=== PATIENT | female | born 1940 | race Caucasian/White ===

== ENCOUNTER 2019-05-11 10:29 | Emergency (ER) | payer MEDICARE, SELFPAY ==
--- NOTE | 2019-05-11 10:32 | ED.GENADULT ---
HPI - General Adult General Chief complaint: Upper Respiratory Infection Stated complaint: Cough Time Seen by Provider: 05/11/19 10:48 Source: patient Mode of arrival: ambulatory Limitations: no limitations History of Present Illness HPI narrative: 78-year-old female patient presents to the [facility] with complaints of a cough. Patient's daughter states that she has had a cough for couple weeks now and saw her primary doctor on 04/23 and was given doxycycline in case of any possible pneumonia or upper respiratory infection. Daughter states that she was doing fine while on the Doxy however when she quit taking the Doxy her symptoms came back. Patient denies any shortness of breath or chest pain at this time patient states she has had a little bit of a cough but it has not been that bad . Patient states she has had a little bit of a headache. Patient denies any fevers. Patient denies any ear pain, runny nose or stuffy nose. Denies any abdominal pain, nausea, vomiting or diarrhea. Patient does have a history of COPD and asthma and states she does have an albuterol inhaler at home but denies trying to use the albuterol inhaler. Related Data Home Medications Medication Instructions Recorded Confirmed albuterol sulfate [Ventolin HFA] 2 inh INHALATION DAILY 01/23/19 05/11/19 bupropion HCl 150 mg PO DAILY 01/23/19 05/11/19 citalopram 40 mg PO DAILY 01/23/19 05/11/19 lisinopril 20 mg PO DAILY 01/23/19 05/11/19 pantoprazole [Protonix] 40 mg PO QAM 01/23/19 05/11/19 levothyroxine 125 mcg DAILY 05/11/19 05/11/19 Allergies Allergy/AdvReac Type Severity Reaction Status Date / Time No Known Allergies Allergy Unknown Verified 05/11/19 10:31 Review of Systems Review of Systems: Narrative: CONSTITUTIONAL: Denies fever, chills, or sweats. EYES: Denies visual changes, redness, or discharge. ENT: Denies rhinorrhea, congestion, sore throat, or otalgia. CARDIOVASCULAR: Denies chest pain, palpitations, or edema. RESPIRATORY: Positive cough, denies dyspnea. GASTROINTESTINAL: Denies abdominal pain, nausea, vomiting, or diarrhea. GENITOURINARY: Denies dysuria or hematuria. SKIN: Denies rash or itching. MUSCULOSKELETAL: Denies back pain, joint pain, or myalgia. NEUROLOGIC: Positive headache, denies numbness, or weakness. PSYCHIATRIC: Denies anxiety or depression. [facility] Past Medical History Medical History Anxiety Asthma Bronchitis Concussion COPD (chronic obstructive pulmonary disease) Dementia Depression GERD (gastroesophageal reflux disease) Goiter HTN (hypertension) Hypothyroidism Pneumonia TIA (transient ischemic attack) UTI (urinary tract infection) Surgical History Surgical History H/O Spinal surgery H/O tubal ligation Family History Family History Mother Diabetes mellitus Congestive heart failure Father Emphysema lung Sibling Heart attack Social History Social History Smoking status: Former smoker Tobacco type: cigarettes Smoking end date: 03/14/88 Additional smoking assessment comments: pt confused and unable to answer, daughter unsure Alcohol intake: never Substance use: never Substance use type: does not use Gender identity (if verbalized by the patient): Female Spiritual care concerns: No Agree to blood products: Yes Comments At the time of my signature I agree with nursing past medical history, surgical, social, and family history. There is no relevant family history pertinent to the presenting complaint. Exam Narrative: Exam Narrative: GENERAL: Well-appearing, well-nourished, and in no acute distress. HEAD: Normocephalic, atraumatic. No tenderness noted to frontal and maxillary sinuses on palpation EYES: PERRLA and EOMI. ENT: Nares with erythema and edema noted susana
[2019-05-11 10:42] VITALS: BP 155/88; PULSE 84; RESP 20; TEMP 36.7; O2SAT 97
[2019-05-11] MEDS: ALBUTEROL SULFATE NEB 2.5 MG/3 ML INH INHALATION (10:58)
[2019-05-11] MEDS: IPRATROPIUM BR 0.02% INH SOLN 0.5 MG/2.5 ML VIAL INHALATION (10:58)
[2019-05-11 11:27] VITALS: PULSE 80
== END 2019-05-11 11:36 | disposition home or self-care (01) ==
PROVIDERS: Emergency Provider Nurse Practitioner Family; PCP Family Medicine
DX: J06.9 Acute upper respiratory infection, unspecified (principal); Z87.891 Personal history of nicotine dependence; F41.9 Anxiety disorder, unspecified; F32.9 Major depressive disorder, single episode, unspecified; J44.9 Chronic obstructive pulmonary disease, unspecified; F03.90 Unspecified dementia, unspecified severity, without behavioral disturbance, psychotic disturbance, mood disturbance, and anxiety; K21.9 Gastro-esophageal reflux disease without esophagitis; I10 Essential (primary) hypertension; E03.9 Hypothyroidism, unspecified; Z86.73 Personal history of transient ischemic attack (TIA), and cerebral infarction without residual deficits; E04.9 Nontoxic goiter, unspecified
CPT/HCPCS: 94640; 99213; G0463

== ENCOUNTER 2019-08-28 14:13 | Emergency (ER) | payer MEDICARE, SELFPAY ==
[2019-08-28 14:15] VITALS: BP 153/90; PULSE 85; RESP 19; TEMP 36.6; O2SAT 96
--- NOTE | 2019-08-28 14:25 | ECG_ITS ---
Measurements Intervals [place] Rate: 76 P: 83 MA: 157 QRS: 67 QRSD: 81 T: 83 QT: 394 QTc: 445 Interpretive Statements SINUS RHYTHM POSSIBLE LEFT ATRIAL ENLARGEMENT CANNOT RULE OUT SEPTAL INFARCT, AGE INDETERMINATE BORDERLINE T WAVE ABNORMALITY- HIGH LATERAL LEADS BASELINE ARTIFACT- I, III, AVL ABNORMAL ECG Electronically Signed On 08-28-2019 14:30:40 CDT by Del Dill D.O.
[2019-08-28 14:35] VITALS: BP 128/79; PULSE 72; RESP 18; O2SAT 96
[2019-08-28 14:43] LABS: Basophils Percent Auto 0.7 % (0.2-1.2); Eosinophils Absolute Auto 0.1 K/mm3 (0-0.3); Eosinophils Percent Auto 2.2 % (0-4.4); Hematocrit 39.9 % (37.0-47.0); Hemoglobin 13.3 g/dL (12.0-15.0); Immature Granulocyte Absolute 0.01 K/mm3 (0.00-0.031); Immature Granulocyte Percent A 0.2 % (0-0.5); Lymphocytes Percent Auto 33.6 % (18.3-44.2); Mean Corpuscular HGB Conc 33.3 g/dl (32-36); Mean Corpuscular Volume 96.1 fl (80-100); Mean Platelet Volume 10.3 fl (7.4-10.4); Monocytes Absolute Auto 0.5 K/mm3 (0.1-0.6); Monocytes Percent Auto 8.2 % (2.6-8.5); Neutrophils Absolute Auto 3.3 K/mm3 (1.3-6.7); Neutrophils Percent Auto 55.1 % (45.5-73.1); Platelet Count Result 307 k/mm3 (150-375); Red Blood Count 4.15 M/mm3 (4.2-5.4); Red Cell Distribution Width 11.4 % (11.5-14.5)
[2019-08-28 14:48] LABS: Add Urine Microscopic? YES; Appearance Urine Clear (Clear); Bilirubin Urine Negative (Negative); Blood Urine 1+ (Negative); Color Urine Yellow (Yellow); Glucose Urine UA Negative (Negative); Hyaline Casts Urine 15-19 /lpf; Ketones Urine Negative (Negative); Leukocyte Esterase Ur Negative LEU/UL (Negative); Mucus Urine Rare /lpf; Nitrate Urine Negative (Negative); Protein Urine 1+ mg/dL (Negative); Specific Grav Ur 1.015 (1.001-1.035); Squamous Epithelial Cell Urine Rare /hpf (Few); WBC Urine 0-3 /hpf
--- NOTE | 2019-08-28 15:04 | ED.AMS ---
HPI - Altered Mental Status General Chief Complaint: Altered Mental Status Stated Complaint: possible uti Time Seen by Provider: 08/28/19 14:52 Source: patient Mode of arrival: EMS Limitations: no limitations History of Present Illness HPI narrative: This patient is a 79 year old female with history of dementia, hypothyroid who presents for evaluation of behavior changes. Her daughter states that over the past week she has become increasingly uncooperative. She also reports that she seems to be more paranoid as well. Today patient was walking up and down the street and her daughter states she would not come in the house. She states patient was also bitten on right hand by her dog. She denies patient being violent or suicidal. PAtient states she has no complaints other than her daughter bothering her. She denies chest pain, shortness of breathing, nausea, vomiting. abdominal pain or cough. Related Data Home Medications Medication Instructions Recorded Confirmed albuterol sulfate [Ventolin HFA] 2 inh INHALATION DAILY 01/23/19 05/11/19 lisinopril 20 mg PO DAILY 01/23/19 05/11/19 pantoprazole [Protonix] 40 mg PO QAM 01/23/19 05/11/19 levothyroxine 125 mcg DAILY 05/11/19 05/11/19 Allergies Allergy/AdvReac Type Severity Reaction Status Date / Time No Known Allergies Allergy Unknown Verified 05/11/19 10:31 Review of Systems Review of Systems: All systems reviewed & are unremarkable except as noted in HPI and below Constitutional: Constitutional: Denies chills, Denies fever(s) and Denies weakness Cardiovascular: Cardiovascular: Denies chest pain and Denies rapid heart rate Respiratory: Respiratory: Denies cough and Denies dyspnea Gastrointestinal: Gastrointestinal: Denies abdominal pain, Denies diarrhea, Denies nausea and Denies vomiting Musculoskeletal: Musculoskeletal: Denies back pain, Denies joint swelling and Denies muscle cramps Neurologic: Denies vertigo, Denies dizziness, Denies syncope, Denies headache(s), Denies focal weakness, Denies numbness and Denies weakness Psychiatric: Psychiatric: Denies anxiety, Denies depression, Denies homicidal ideation and Denies suicidal ideation PMFSH Past Medical History Medical History Anxiety Asthma Bronchitis Concussion COPD (chronic obstructive pulmonary disease) Dementia Depression GERD (gastroesophageal reflux disease) Goiter HTN (hypertension) Hypothyroidism Pneumonia TIA (transient ischemic attack) UTI (urinary tract infection) Surgical History Surgical History H/O Spinal surgery H/O tubal ligation Social History Social History Smoking status: Former smoker Tobacco type: cigarettes Smoking end date: 03/14/88 Additional smoking assessment comments: pt confused and unable to answer, daughter unsure Alcohol intake: never Substance use: never Substance use type: does not use Gender identity (if verbalized by the patient): Female Spiritual care concerns: No Agree to blood products: Yes Exam Const: General: no acute distress and alert Nutritional Appearance: thin Other: oriented to person, age, place. pleasant HENMT: Head: normocephalic and atraumatic Face and sinus: sinuses nontender and face symmetric Mouth: Yes Normal oral and palatal mucosa present and Yes lip normal Throat: posterior oropharynx normal Eyes: Pupils: Equal, round and reactive pupils present EOM: EOMs intact bilaterally Neck: Neck: normal visual inspection and no lymphadenopathy Chest: Chest palpation & inspection: normal inspection of the chest Resp: Effort & Inspection: normal respiratory effort and no retractions Auscultation: clear to auscultation bilaterally Cardio: Rate: regular rate and not bradycardic Rhythm: regular rhythm Heart sounds: no murmurs GI: GI Palp: Yes Soft
[2019-08-28] MEDS: TETANUS,DIPHTHERIA,AC PERTUSSIS ADULT (0.5 ML) BOOSTRIX IM (15:24)
[2019-08-28 15:25] VITALS: BP 103/80; PULSE 70; RESP 19; O2SAT 98
[2019-08-28 15:29] LABS: Alanine Aminotransferase 13 U/L (4-35); Alkaline Phosphatase 111 U/L (38-126); Aspartate Amino Transferase 29 U/L (14-36); Bilirubin,Total 0.5 mg/dL (0.2-1.3); Blood Urea Nitrogen 12 mg/dL (7-17); Calcium 9.8 mg/dL (8.4-10.2); Carbon Dioxide 30 mmol/L (22-30); Chloride 104 mmol/L (98-107); Estimated CRCL calculation 32 ml/min; Estimated Glomerular Filt Rate > 60; Glucose 92 mg/dL (65-105); Potassium 4.4 mmol/L (3.4-5.0); Sodium 137 mmol/L (137-145)
--- NOTE | 2019-08-28 16:03 | PCCCNOTE ---
Visited pt and daughter in ER 1. Daughter concerned that mother not safe at home not taking care of ADL's ie. bathing and also wandering. Informed pt and daughter that case coordination would call Adult Protective Services and encouraged daughter to call pt's primary doctor. Called and left message with Adult Protective Services [phone].
[2019-08-28 16:11] VITALS: BP 133/77; PULSE 65; RESP 18; O2SAT 98
[2019-08-28 17:39] VITALS: BP 133/77; PULSE 69; RESP 16; O2SAT 96
--- NOTE | 2019-08-29 09:41 | PCCCNOTE ---
08/29/19 Adult Protective Services returned call. Already had pt demographics and information regarding daughter's concerns given to APS. Informed case would be opened and person would be assigned.
== END 2019-08-28 17:40 | disposition home or self-care (01) ==
PROVIDERS: Emergency Provider General Practice; PCP Family Medicine
DX: S61.451A Open bite of right hand, initial encounter (principal); F41.9 Anxiety disorder, unspecified; J45.909 Unspecified asthma, uncomplicated; J44.9 Chronic obstructive pulmonary disease, unspecified; K21.9 Gastro-esophageal reflux disease without esophagitis; I10 Essential (primary) hypertension; E03.9 Hypothyroidism, unspecified; W54.0XXA Bitten by dog, initial encounter; Z23 Encounter for immunization
CPT/HCPCS: 36415; 80053; 81001; 85025; 90471; 90715; 93005; 99284

== ENCOUNTER 2019-10-15 02:11 | Emergency (ER) | payer MEDICARE, SELFPAY ==
--- NOTE | ~2019-10-15 | XR_ITS ---
EXAMINATION: XR ankle RT min 3V INDICATION: Right ankle pain TECHNIQUE: Four views of the right ankle are obtained. COMPARISON: None available FINDINGS: There is diffuse soft tissue swelling of ankle. No acute fracture is identified. Mild irreg ularity at the distal aspect of the lateral malleolus likely reflects prior injury. A plantar calcane al enthesophyte is noted. IMPRESSION: 1. No acute osseous abnormality. Reviewed, dictated and finalized at location A.
[2019-10-15 02:19] VITALS: BP 172/79; PULSE 88; RESP 20; TEMP 36.6; O2SAT 100
--- NOTE | 2019-10-15 03:09 | PC.NURSE ---
Patient states I want to go home. This nurse informs patient that I will inform the doctor to come talk to her.
[2019-10-15 03:14] LABS: Basophils Absolute Auto 0.1 K/mm3 (0.0-0.1); Basophils Percent Auto 0.7 % (0.2-1.2); Eosinophils Absolute Auto 0.2 K/mm3 (0-0.3); Eosinophils Percent Auto 1.9 % (0-4.4); Hematocrit 39.2 % (37.0-47.0); Hemoglobin 13.3 g/dL (12.0-15.0); Immature Granulocyte Absolute 0.02 K/mm3 (0.00-0.031); Immature Granulocyte Percent A 0.2 % (0-0.5); Lymphocytes Absolute Auto 2.25 K/mm3 (0.9-3.2); Lymphocytes Percent Auto 26.5 % (18.3-44.2); Mean Corpuscular HGB Conc 33.9 g/dl (32-36); Mean Corpuscular Hemoglobin 32.8 pg (26-34); Mean Corpuscular Volume 96.6 fl (80-100); Mean Platelet Volume 9.3 fl (7.4-10.4); Monocytes Absolute Auto 0.8 K/mm3 (0.1-0.6); Monocytes Percent Auto 8.8 % (2.6-8.5); Neutrophils Absolute Auto 5.3 K/mm3 (1.3-6.7); Neutrophils Percent Auto 61.9 % (45.5-73.1); Platelet Count Result 278 k/mm3 (150-375); Red Blood Count 4.06 M/mm3 (4.2-5.4); Red Cell Distribution Width 12.7 % (11.5-14.5); White Blood Count 8.5 K/mm3 (4.5-10.0)
[2019-10-15 03:23] LABS: Partial Thromboplastin Time 31.7 SECONDS (22.3-36.8); Prothrombin Time 12.7 Seconds (11.1-14.7)
--- NOTE | 2019-10-15 03:24 | PC.NURSE ---
Patient at nurses station stating I'm ready to go now!! stated when patient's ride comes back patient can leave. This nurse called the number on file, no answer or way to leave a message.
[2019-10-15 03:25] LABS: Alanine Aminotransferase 14 U/L (4-35); Albumin Level 3.9 g/dL (3.5-5.1); Alkaline Phosphatase 123 U/L (38-126); Anion Gap 9.4 mmol/L (7-16); Aspartate Amino Transferase 27 U/L (14-36); Bilirubin,Total 0.4 mg/dL (0.2-1.3); Blood Urea Nitrogen 9 mg/dL (7-17); Calcium 9.1 mg/dL (8.4-10.2); Carbon Dioxide 30 mmol/L (22-30); Chloride 104 mmol/L (98-107); Estimated CRCL calculation 42 ml/min; Estimated Glomerular Filt Rate > 60; Glucose 78 mg/dL (65-105); Potassium 3.4 mmol/L (3.4-5.0); Sodium 140 mmol/L (137-145)
--- NOTE | 2019-10-15 03:35 | ED.GENADULT ---
HPI - General Adult General Chief complaint: Unspecified Stated complaint: Lower ext swelling/rectal pain Time Seen by Provider: 10/15/19 02:22 Source: RN notes reviewed History of Present Illness HPI narrative: Patient presents emergency department from home for multiple complaints. Patient states that she was driving the car and had pain in her rectum that is now improved. She denies having any associated abdominal pain denies any fevers or chills or blood in her stool. Patient also notes that she has been having some swelling erythema in her right lower leg is been present for some time she cannot give any further definitive history. She denies any pain in the leg states she is able to walk on it without difficulty. Related Data Allergies Allergy/AdvReac Type Severity Reaction Status Date / Time No Known Allergies Allergy Verified 10/15/19 02:26 Review of Systems Review of Systems: Narrative: Gen.: Denies fevers or chills ENT: Denies congestion Respiratory: Denies shortness of breath or cough CV: Denies chest pain or palpitations GI: Denies abdominal pain nausea, emesis or diarrhea reports rectal pain denies burning, urgency, frequency or hematuria Musculoskeletal: Denies back pain or muscle pain Neuro: Denies numbness, tingling, weakness or focal weakness Skin: Right leg redness Except as documented, all other systems reviewed and negative [facility] Past Medical History Medical History (Updated 10/15/19 @ 04:07 by Aleks Mercedes DO) Dementia Social History Social History (Updated 10/15/19 @ 04:07 by Aleks Mercedes DO) Smoking status: Never smoker Exam Narrative: Exam Narrative: APPEARANCE: No acute distress, nontoxic, resting in bed EYES: EOMI HEENT: Normocephalic, atraumatic, OMM RESPIRATORY: No respiratory distress Clear to auscultation bilaterally with no rhonchi wheezing or rales. CARDIOVASCULAR: Regular rate and rhythm without murmurs rubs or gallops. ABDOMINAL: Soft, nontender, nondistended, no rebound or guarding Rectum: Rectal prolapse present that is easily reducible MUSCULOSKELETAl: Moves all extremities. No clubbing, cyanosis 2+ edema the right lower extremity there is mild swelling mild ecchymosis around the right ankle and then erythema over the anterior monk no tenderness of the calf NEURO: Awake and alert. Following commands, speech normal, no focal deficits SKIN:: Warm, dry. No rashes lesions or abrasions PSYCHIATRIC: Normal affect/mood, Course Course Emergency Course: Upon initial evaluation the patient did have a rectal prolapse with gentle pressure it was reduced Patient has a second medical record and reviewed the chart the patient is recently been diagnosed with dementia. The granddaughter dropped off the patient returned home to get ID for the patient. Patient purely trying to get up and leave saying she does not wish to be here anymore and trying to direct the patient back into the room awaiting family to return. I did call and discussed with daughter Kori who will come in to get the patient Patient's granddaughter is now present. States the patient is staying with her and her father she is comfortable taking the patient home discussed rectal prolapse need follow-up with surgery Discussed with patient results of workup and diagnosis. Discussed need for follow-up with primary care, proper use of medication, and reasons to return to the emergency department. Patient understands and agrees to current treatment plan Vital Signs Vital signs: Vital Signs Temperature 97.9 F 10/15/19 02:19 Pulse Rate 88 10/15/19 02:19 Respiratory Rate 10/15/19 02:19 Blood Pressure 172/79 H 10/15/19 02:19 Pulse Oximetry 100 10/15/19 02:19 Temperature 97.9 F 10/15/19 02:19 Pulse Rate 88 10/15/19 02:19 Respiratory Rate 20 10/15/19 02:19 Blood Pressure 172/79 H 10/15/19 02:19 Pulse Oximetry 100 10/15/19 02:19 Medical Decision Making Vital Signs Vital Signs:
--- NOTE | 2019-10-15 03:47 | PC.NURSE ---
Patient at nurses station stating why are you keeping me prisoner! I just want to go home! . This nurse and other RNs informing patient that her daughter is on her way here to pick her up. Patient frequently stating she was brought here by her son. Patient instructed to go wait in her room, patient refusing to go back to her room. Patient frequently reminded that her daughter is on her way to pick her up.
[2019-10-15] MEDS: CEPHALEXIN 500 MG CAPSULE (04:00)
--- NOTE | 2019-10-15 04:01 | PC.NURSE ---
Patient's granddaughter arrives to room.
== END 2019-10-15 04:13 | disposition home or self-care (01) ==
PROVIDERS: Emergency Provider Emergency Medicine; PCP Family Medicine
DX: L03.115 Cellulitis of right lower limb (principal); K62.3 Rectal prolapse; F03.90 Unspecified dementia, unspecified severity, without behavioral disturbance, psychotic disturbance, mood disturbance, and anxiety
CPT/HCPCS: 36415; 73610; 80053; 85025; 85610; 85730; 99283; A9270

== ENCOUNTER 2019-10-23 15:43 | Inpatient (IN) | payer MEDICARE, SELFPAY ==
[2019-10-23] VITALS (7 sets, daily range): BP systolic 147–190; BP diastolic 87–116; PULSE 78–111; RESP 16–30; TEMP 36.3–36.9; O2SAT 88–100; BMI 16.0
--- NOTE | ~2019-10-23 | XR_ITS ---
EXAMINATION: XR chest 1V portable EXAM DATE: 10/23/2019 16:53 INDICATION: Cough, dyspnea. History COPD and hypertension. TECHNIQUE: Portable AP frontal chest x-ray was obtained. Comparison is made to prior examination from 01/13/2019. FINDINGS: Lungs are hyperinflated. Resolution of previously seen patchy bibasilar acute airspace dise ase. There is no focal acute air space disease. There is no pneumothorax suspected. There are no pleu ral effusions. Cardiomediastinal silhouette is normal. Bones may be osteopenic. IMPRESSION: 1. Hyperinflation. Reviewed, dictated and finalized at location A. IMPRESSION: 1. Hyperinflation.
[2019-10-23 16:22] LABS: Basophils Absolute Auto 0.1 K/mm3 (0.0-0.1); Basophils Percent Auto 0.4 % (0.2-1.2); Eosinophils Absolute Auto 0.1 K/mm3 (0-0.3); Eosinophils Percent Auto 0.8 % (0-4.4); Hematocrit 41.8 % (37.0-47.0); Hemoglobin 13.6 g/dL (12.0-15.0); Immature Granulocyte Absolute 0.06 K/mm3 (0.00-0.031); Immature Granulocyte Percent A 0.5 % (0-0.5); Lymphocytes Absolute Auto 3.08 K/mm3 (0.9-3.2); Lymphocytes Percent Auto 26.5 % (18.3-44.2); Mean Corpuscular HGB Conc 32.5 g/dl (32-36); Mean Corpuscular Hemoglobin 32.2 pg (26-34); Mean Corpuscular Volume 99.1 fl (80-100); Mean Platelet Volume 9.2 fl (7.4-10.4); Monocytes Percent Auto 8.3 % (2.6-8.5); Neutrophils Absolute Auto 7.4 K/mm3 (1.3-6.7); Neutrophils Percent Auto 63.5 % (45.5-73.1); Platelet Count Result 403 k/mm3 (150-375); Red Blood Count 4.22 M/mm3 (4.2-5.4); Red Cell Distribution Width 13.6 % (11.5-14.5); White Blood Count 11.6 K/mm3 (4.5-10.0)
[2019-10-23 16:32] LABS: Lactic Acid 0.7 mmol/L (0.7-2.1)
--- NOTE | 2019-10-23 16:32 | ECG_ITS ---
Measurements Intervals [place] Rate: 103 P: [place]: 0 QRS: 80 QRSD: 90 T: 95 QT: 364 QTc: 478 Interpretive Statements SINUS TACHYCARDIA ATRIAL COUPLET, ATRIAL AND VENTRICULAR PREMATURE COMPLEXES CANNOT RULE OUT SEPTAL INFARCT, AGE INDETERMINATE NONSPECIFIC ST & T-WAVE ABNORMALITY- DIFFUSE LEADS BASELINE ARTIFACT- II, III, V1-V6 ABNORMAL ECG Electronically Signed On 10-23-2019 19:34:35 CDT by Del Dill D.O.
--- NOTE | 2019-10-23 16:32 | ED.URI ---
HPI - URI/Sore Throat General Chief Complaint: Upper Respiratory Infection Stated Complaint: deep cough/sinus drainage Time Seen by Provider: 10/23/19 16:30 Source: patient and family Mode of arrival: wheelchair Limitations: no limitations History of Present Illness HPI Narrative: Patient is a 79-year-old female with a history of dementia, hypertension, pneumonia, asthma who presents for evaluation of cough and shortness of breath. Patient states she has been feeling unwell with a productive cough and sinus congestion over the past 72 hours. Patient denies any chest pain, palpitations. No nausea or vomiting. Patient is not currently on any antibiotics. She has been using her trilogy at home as well as at home medications without much improvement in her symptoms. Patient has a history of recurrent pneumonia and has required admission in the past. No sore throat, no myalgias. No history of known COVID exposure or recent sick contacts. Related Data Home Medications Medication Instructions Recorded Confirmed levothyroxine 125 mcg DAILY 05/11/19 05/11/19 lisinopril 20 mg PO DAILY 10/23/19 Allergies Allergy/AdvReac Type Severity Reaction Status Date / Time No Known Allergies Allergy Unknown Verified 10/23/19 16:25 Review of Systems Review of Systems: Narrative: CONSTITUTIONAL: Denies fever CARDIOVASCULAR: Denies chest pain RESPIRATORY: Reports cough and shortness of breath GASTROINTESTINAL: Denies abdominal pain SKIN: Denies rash MUSCULOSKELETAL: Denies back pain NEUROLOGIC: Denies headache PMFSH Past Medical History Medical History Anxiety Asthma Bronchitis Concussion COPD (chronic obstructive pulmonary disease) Dementia Dementia Depression GERD (gastroesophageal reflux disease) Goiter HTN (hypertension) Hypothyroidism Pneumonia TIA (transient ischemic attack) UTI (urinary tract infection) Surgical History Surgical History H/O Spinal surgery H/O tubal ligation Social History Social History Smoking status: Never smoker Tobacco type: cigarettes Smoking end date: 03/14/88 Additional smoking assessment comments: pt confused and unable to answer, daughter unsure Alcohol intake: never Substance use: never Substance use type: does not use Gender identity (if verbalized by the patient): Female Spiritual care concerns: No Agree to blood products: Yes Exam Narrative: Exam Narrative: GENERAL: Awake, alert, thin, elderly HEAD: Normocephalic, atraumatic. EYES: PERRLA and EOMI. ENT: Nares clear, no rhinorrhea or epistaxis. Mucous membranes dry. NECK: Supple. CHEST: Tachypnea present, use of accessory muscles to breathe, hypoxemia, coarse breath sounds with expiratory wheezing bilaterally HEART: Tachycardic rate, sinus rhythm ABDOMEN: Scaphoid, non distended, non tender EXTREMITIES: Normal range of motion. No edema. SKIN: Pale, warm, dry, no rash. NEURO:No focal deficits. Alert and oriented x3 Course Vital Signs Vital signs: Vital Signs Temperature 36.9 C 10/23/19 16:09 Pulse Rate 107 H 10/23/19 16:09 Respiratory Rate 20 10/23/19 16:09 Blood Pressure 157/116 H 10/23/19 16:09 Pulse Oximetry 91 10/23/19 16:09 Temperature 36.9 C 10/23/19 16:09 Pulse Rate 94 10/23/19 18:13 Respiratory Rate 30 H 10/23/19 18:13 Blood Pressure 147/88 H 10/23/19 18:13 Pulse Oximetry 98 10/23/19 18:13 MDM - URI/Sore Throat MDM Narrative Medical decision making narrative: Patient is a 79-year-old female with a history of asthma, recurrent pneumonia who presented for evaluation of cough and shortness of breath. Patient is not on any home oxygen, but is hypoxemic with increased work of breathing here, very coarse breath sounds with very minimal wheezing present. Patient also with coarse rhonchi in the upper air
[2019-10-23 16:33] LABS: Anion Gap 6 mmol/L (8-16); Blood Urea Nitrogen 11 mg/dL (7-17); Calcium 9.4 mg/dL (8.4-10.2); Carbon Dioxide 32 mmol/L (22-30); Chloride 103 mmol/L (98-107); Estimated CRCL calculation 37 ml/min; Estimated Glomerular Filt Rate > 60; Glucose 103 mg/dL (65-105); Potassium 3.5 mmol/L (3.4-5.0); Sodium 141 mmol/L (137-145)
[2019-10-23 16:55] LABS: Base Excess ABG 6.3 mEq/l (+/-2.0); Carboxyhemoglobin 0.9 % THb (0-2.0); Fractional Inspired Oxygen 28 %; HCO3 ABG 32.4 mEq/l (22.0-26.0); Methemoglobin ABG 0.3 %THb (0-1.5); Oxygen Content ABG 19.2 %vol (16.0-22.0); Oxygen Saturation ABG 99.1 % (95.0-100.0); Oxyhemoglobin 97.6 % THb (90.0-100.0); PCO2 ABG 52.8 mmHg (35.0-45.0); PO2 ABG 166.2 mmHg (80.0-100.0); PO2 FiO2 Ratio Arterial Blood 5.94 %; Reduced Hemoglobin 1.2 %THb (0-5.0); Total Hemoglobin 13.8 g/dL (12.0-18.0); pH ABG 7.406 (7.350-7.450)
[2019-10-23 16:57] LABS: Device NASAL CANNULA; Site Drawn LEFT BRACHIAL
[2019-10-23] MEDS: SODIUM CHLORIDE 0.9% IV 1,000 ML 999 ML IV CONT (17:01)
[2019-10-23 17:09] LABS: Basophils Absolute Auto 0.1 K/mm3 (0.0-0.1); Basophils Percent Auto 0.7 % (0.2-1.2); Eosinophils Absolute Auto 0.1 K/mm3 (0-0.3); Eosinophils Percent Auto 0.8 % (0-4.4); Hematocrit 40.5 % (37.0-47.0); Hemoglobin 13.1 g/dL (12.0-15.0); Immature Granulocyte Absolute 0.07 K/mm3 (0.00-0.031); Immature Granulocyte Percent A 0.6 % (0-0.5); Lymphocytes Absolute Auto 3.02 K/mm3 (0.9-3.2); Lymphocytes Percent Auto 25.6 % (18.3-44.2); Mean Corpuscular HGB Conc 32.3 g/dl (32-36); Mean Corpuscular Hemoglobin 32.4 pg (26-34); Mean Corpuscular Volume 100.2 fl (80-100); Mean Platelet Volume 9.5 fl (7.4-10.4); Monocytes Absolute Auto 1.1 K/mm3 (0.1-0.6); Monocytes Percent Auto 8.9 % (2.6-8.5); Neutrophils Absolute Auto 7.5 K/mm3 (1.3-6.7); Neutrophils Percent Auto 63.4 % (45.5-73.1); Platelet Count Result 389 k/mm3 (150-375); Red Blood Count 4.04 M/mm3 (4.2-5.4); Red Cell Distribution Width 13.6 % (11.5-14.5); White Blood Count 11.8 K/mm3 (4.5-10.0)
[2019-10-23 17:24] LABS: Alanine Aminotransferase 12 U/L (4-35); Albumin Level 3.8 g/dL (3.5-5.1); Alkaline Phosphatase 115 U/L (38-126); Anion Gap 5 mmol/L (8-16); Aspartate Amino Transferase 26 U/L (14-36); Bilirubin,Total 0.5 mg/dL (0.2-1.3); Blood Urea Nitrogen 13 mg/dL (7-17); Calcium 9.1 mg/dL (8.4-10.2); Carbon Dioxide 34 mmol/L (22-30); Chloride 103 mmol/L (98-107); Estimated CRCL calculation 37 ml/min; Estimated Glomerular Filt Rate > 60; Glucose 96 mg/dL (65-105); Potassium 3.7 mmol/L (3.4-5.0); Sodium 142 mmol/L (137-145)
[2019-10-23] MEDS: methylPREDNISolone SOD SUCC 125 MG VIAL (18:25)
--- NOTE | 2019-10-23 19:30 | PC.NURSE ---
Upon walking into patient's room to receive bedside report from NITESH Lind, patient was found ambulatory out of bed. Patient is unsure why she stood up and is only alert to name at this time. Patient placed back in bed with bed alarm placed.
--- NOTE | 2019-10-23 19:57 | ADMGEN ---
This patient, Mireya Zamora, was admitted to 3 Med Surg Room 326-01. Patient/family oriented to hospital policies and general routines including ID bracelet, bed and alarms, visiting hours, pain management, procedures, bathroom and other care routines, personal items, smoking policy, room service/diet, and visiting hours. Valuables list has been completed. Information on how to activate the Rapid Response Team has been discussed. Patient/Family are encouraged to report perceived risks to care and to ask questions if they do not understand what they are told or what they should do.
[2019-10-23] MEDS: methylPREDNISolone SOD SUCC 125 MG VIAL 60 MG IV PUSH (23:36)
[2019-10-24] VITALS (12 sets, daily range): BP systolic 107–154; BP diastolic 76–86; PULSE 65–102; RESP 16–24; TEMP 36.7–37.1; O2SAT 91–99; BMI 16.0
--- NOTE | 2019-10-24 04:52 | PM.IMHP ---
H&P: HPI History of Present Illness Date/Time: 10/24/19 04:52 Chief complaint: Cough and shortness of breath Narrative: Mireya Zamora is a 79 year old female with a past medical history of hypertension, dementia, asthma/COPD who presented to the ER with shortness of breath and cough. The patient had 3 days of productive cough and sinus congestion. She has not had any chest pain or palpitations. the patient had been exhibiting increased paranoia and disruptive behaviors. She was evaluated by her primary care physician 09/18/2019 and a referral was made to adult protective services. The daughter was trying to get the patient into assisted living. At the time of my evaluation the patient cannot provide any past medical history. She is alert oriented only to self. When I ask her any review of systems questions she simply states no she has no complaints. Review of Systems Review of Systems: ROS unobtainable: Yes unobtainable due to mental status ( Dementia) [facility] Past Medical History Medical History (Updated 10/24/19 @ 05:[address] DO) Anxiety Asthma Concussion distant history COPD (chronic obstructive pulmonary disease) Dementia Depression Essential hypertension GERD (gastroesophageal reflux disease) Goiter Hypothyroidism Pneumonia TIA (transient ischemic attack) Surgical History Surgical History H/O Spinal surgery 1994 H/O tubal ligation Family History Family History Mother Diabetes mellitus Congestive heart failure Father Emphysema lung Sibling Heart attack Social History Social History Social History: primary care provider: Dr. Shaylee Noyola Smoking status: Former smoker Tobacco type: cigarettes Smoking end date: 03/14/88 Alcohol intake: never Substance use: never Substance use type: does not use Gender identity (if verbalized by the patient): Female Sexual Orientation (if Verbalized by the Patient): Straight or Heterosexual Spiritual care concerns: No Agree to blood products: Yes Meds Home Medications and Allergies Home Medications Medication Instructions Recorded Confirmed Type memantine 5 mg tablet 5 mg PO BID #180 tablet 02/27/19 10/23/19 Rx levothyroxine 125 mcg DAILY 05/11/19 10/23/19 History bupropion HCl 150 mg 24 hr tablet, 150 mg PO DAILY #90 tablet 06/01/19 10/23/19 Rx extended release fluticasone fur. 100 mcg-umeclid 1 inhalation INHALATION DAILY 30 06/12/19 10/23/19 Rx 62.5 mcg-vilant 25 mcg Days #28 each inhalat.powder citalopram 40 mg tablet 40 mg PO DAILY #90 tablet 07/11/19 10/23/19 Rx lisinopril 20 mg PO DAILY 10/23/19 10/23/19 History Allergies Allergy/AdvReac Type Severity Reaction Status Date / Time No Known Allergies Allergy Unknown Verified 10/23/19 16:25 Vital Signs Vital Signs - 24 hr 10/23/19 16:09 10/23/19 16:21 10/23/19 16:25 Temperature 98.5 F Pulse Rate 107 H 111 H 105 H Respiratory Rate 20 22 H 28 H Blood Pressure 157/116 H 190/105 H 190/105 H Pulse Oximetry 91 88 L 94 10/23/19 18:13 10/23/19 18:57 10/23/19 19:39 Temperature Pulse Rate 94 78 85 Respiratory Rate 30 H 28 H 17 Blood Pressure 147/88 H 158/95 H 158/95 H Pulse Oximetry 98 95 100 10/23/19 19:57 10/24/19 00:00 10/24/19 04:00 Temperature 97.3 F L Pulse Rate 88 71 67 Respiratory Rate 16 Blood Pressure 168/87 H Pulse Oximetry 92 Exam Narrative: Exam Narrative: PHYSICAL EXAM: WEIGHT 37.1 kg BMI 16 General: thin body habitus, elderly, frail HEENT: mucous membranes are tacky, no oral pharyngeal erythema, edentulous, head is normocephalic atraumatic Respiratory: decreased breath sounds bilaterally, no increased work of breathing Cardiovascular: regular rate, regular rhythm, no murmurs, 2+ bilateral radial and pedal puls
--- NOTE | 2019-10-24 05:07 | ECG_ITS ---
Measurements Intervals [place] Rate: 94 P: 79 [place]: 136 QRS: 72 QRSD: 73 T: 118 QT: 346 QTc: 434 Interpretive Statements SINUS RHYTHM BORDERLINE ST-T WAVE ABNORMALITY- DIFFUSE LEADS BASELINE ARTIFACT- V3-V6 BORDERLINE ECG Electronically Signed On 10-24-2019 16:19:59 CDT by Del Dill D.O.
[2019-10-24] MEDS: LEVOTHYROXINE SODIUM 125 MCG TABLET PO (05:51)
[2019-10-24] MEDS: methylPREDNISolone SOD SUCC 125 MG VIAL 60 MG IV PUSH ×3 (05:51→21:05)
[2019-10-24 06:06] LABS: Hematocrit 39.4 % (37.0-47.0); Hemoglobin 12.8 g/dL (12.0-15.0); Mean Corpuscular HGB Conc 32.5 g/dl (32-36); Mean Corpuscular Hemoglobin 32.4 pg (26-34); Mean Corpuscular Volume 99.7 fl (80-100); Mean Platelet Volume 9.3 fl (7.4-10.4); Platelet Count Result 362 k/mm3 (150-375); Red Blood Count 3.95 M/mm3 (4.2-5.4); Red Cell Distribution Width 13.4 % (11.5-14.5); White Blood Count 8.1 K/mm3 (4.5-10.0)
[2019-10-24 06:21] LABS: Anion Gap 4 mmol/L (8-16); Blood Urea Nitrogen 9 mg/dL (7-17); Calcium 8.5 mg/dL (8.4-10.2); Carbon Dioxide 35 mmol/L (22-30); Chloride 103 mmol/L (98-107); Estimated CRCL calculation 45 ml/min; Estimated Glomerular Filt Rate > 60; Glucose 139 mg/dL (65-105); Potassium 3.8 mmol/L (3.4-5.0); Sodium 142 mmol/L (137-145)
[2019-10-24] MEDS: MEMANTINE 5 MG TABLET PO ×2 (09:01→16:39)
[2019-10-24] MEDS: lisinopriL 20 MG TABLET PO (09:01)
[2019-10-24] MEDS: buPROPion HCL XL (24 HR) 150 MG TABCR PO (11:19)
[2019-10-24 14:11] LABS: SARS-CoV-2 RNA PCR Negative
--- NOTE | 2019-10-24 16:14 | PM.IMPN ---
Progress Note: A&P Assessment and Plan (1) COPD exacerbation: Code(s): J44.1 - Chronic obstructive pulmonary disease with (acute) exacerbation Status: Acute Assessment and Plan: Patient presents with cough and increased shortness of breath. COVID negative; chest XR shows no infiltrate or consolidation, will discontinue antibiotics. Continue IV solu-medrol, decrease dose. Since COVID negative, will add nebulized bronchodilator therapy with Duo Nebs in addition to pulmozyme. Monitor symptoms. Supplemental O2 as needed however she is saturating fine on room air this afternoon. (2) Dementia: Qualifiers: Dementia type: unspecified type Dementia behavioral disturbance: with behavioral disturbance Qualified Code(s): F03.91 - Unspecified dementia with behavioral disturbance Code(s): F03.90 - Unspecified dementia without behavioral disturbance Status: Chronic Assessment and Plan: Continue home Namenda. (3) HTN (hypertension): Code(s): I10 - Essential (primary) hypertension Status: Chronic Assessment and Plan: BPs elevated on arrival; improved with resuming her home antihypertensive. Continue home lisinopril. Stable, last 126/78. Monitor BP and adjust treatment as needed. Subjective Date/time seen: 10/24/19 1400 Interval history: Ms. Zamora is a 79yo F with dementia admitted for COPD exacerbation. She is awake and alert, attempting to use the call light as a telephone. She will not answer any of my questions. Review of Systems Review of Systems: ROS unobtainable: Yes unobtainable due to mental status Exam Narrative: Exam Narrative: General: Female sitting up in bedside chair in no acute distress; appeared to be talking on the phone however she is holding the call light/TV remote up to her ear like a phone. HEENT: Normocephalic, EOMI, oral mucosa tacky. Cardiovascular: Rate and rhythm are regular. Respiratory: Diffuse expiratory wheezing MARK; respirations are even and nonlabored. Tolerating room air. Abdomen: Soft, non-tender, non-distended, bowel sounds present. Extremities: Peripheral pulses intact. No edema. Neuro: Significantly confused. Alert and oriented only to self. Not able to participate in full neuro exam. Objective Data Vital Signs Vital Signs: Last Vital Signs Temp 98.2 F 10/24/19 14:00 Pulse 93 10/24/19 19:53 Resp 24 H 10/24/19 19:53 BP 126/78 10/24/19 14:00 Pulse Ox 92 10/24/19 19:42 Intake/Output Intake/Output: Intake & Output 10/21/19 10/22/19 10/23/19 10/24/19 23:59 23:59 23:59 23:59 Intake Total 1400 200 Output Total 200 Balance 1400 0 Meds/Results Medications: Active Medications Generic Name Dose Route Start Last Admin Trade Name Freq PRN Reason Stop Dose Admin Acetaminophen 650 mg 10/23/19 18:00 Tylenol Tablet PO Q4H PRN Mild Pain (1-3) or Fever Albuterol 2.5 mg 10/24/19 20:00 Albuterol Sulf Neb 2.5mg/0.5ml INHALATION Q6HRT [facility] Bupropion HCl 150 mg 10/24/19 09:00 10/24/19 11:19 Wellbutrin Xl (24 Hr) PO 150 mg DAILY ELAINE Administration Dornase Moreno 2.5 mg 10/24/19 20:00 Pulmozyme INHALATION Q12HRT ELAINE Ipratropium [place] 0.5 mg 10/24/19 20:00 Atrovent Neb INHALATION Q6HRT ELAINE Levothyroxine Sodium 125 mcg 10/24/19 06:30 10/24/19 05:51 Synthroid PO 125 mcg DAILY@0630 ELAINE Administration Lisinopril 20 mg 10/24/19 09:00 10/24/19 09:01 Prinivil PO 20 mg DAILY ELAINE Administration Memantine 5 mg 10/24/19 09:00 10/24/19 09:01 Namenda PO 5 mg BID ELAINE Administration Methylprednisolone Sodium Succinate 60 mg 10/24/19 22:00 Solu-Medrol IV PUSH Q8HR [facility] Radiology Results: ITS Impressions Chest X-Ray 10/23/19 16:57 IMPRESSION: 1. Hyperinflation. Labs Labs: Laboratory Tests
[2019-10-24] MEDS: ALBUTEROL SULFATE NEB 2.5 MG/0.5 ML INH INHALATION (19:38)
[2019-10-24] MEDS: IPRATROPIUM BR 0.02% INH SOLN 0.5 MG/2.5 ML VIAL INHALATION (19:38)
[2019-10-24] MEDS: DORNASE ALFA INH SOLN 1 MG/ML 2.5 ML AMP 2.5 MG INHALATION (19:38)
[2019-10-25] VITALS (24 sets, daily range): BP systolic 137–149; BP diastolic 74–81; PULSE 77–116; RESP 18–26; TEMP 36.6–36.7; O2SAT 87–96
[2019-10-25] MEDS: ALBUTEROL SULFATE NEB 2.5 MG/0.5 ML INH INHALATION ×4 (02:01→20:15)
[2019-10-25] MEDS: IPRATROPIUM BR 0.02% INH SOLN 0.5 MG/2.5 ML VIAL INHALATION ×4 (02:01→20:15)
[2019-10-25] MEDS: methylPREDNISolone SOD SUCC 125 MG VIAL 60 MG IV PUSH ×3 (05:43→20:30)
[2019-10-25] MEDS: LEVOTHYROXINE SODIUM 125 MCG TABLET PO (05:43)
[2019-10-25 06:09] LABS: Basophils Percent Auto 0.2 % (0.2-1.2); Hematocrit 38.2 % (37.0-47.0); Hemoglobin 12.5 g/dL (12.0-15.0); Immature Granulocyte Absolute 0.13 K/mm3 (0.00-0.031); Immature Granulocyte Percent A 0.7 % (0-0.5); Lymphocytes Absolute Auto 1.42 K/mm3 (0.9-3.2); Lymphocytes Percent Auto 8.2 % (18.3-44.2); Mean Corpuscular HGB Conc 32.7 g/dl (32-36); Mean Corpuscular Hemoglobin 32.5 pg (26-34); Mean Corpuscular Volume 99.2 fl (80-100); Mean Platelet Volume 9.3 fl (7.4-10.4); Monocytes Absolute Auto 0.4 K/mm3 (0.1-0.6); Monocytes Percent Auto 2.1 % (2.6-8.5); Neutrophils Absolute Auto 15.4 K/mm3 (1.3-6.7); Neutrophils Percent Auto 88.8 % (45.5-73.1); Platelet Count Result 417 k/mm3 (150-375); Red Blood Count 3.85 M/mm3 (4.2-5.4); Red Cell Distribution Width 13.7 % (11.5-14.5); White Blood Count 17.4 K/mm3 (4.5-10.0)
[2019-10-25 06:20] LABS: Anion Gap 6 mmol/L (8-16); Blood Urea Nitrogen 17 mg/dL (7-17); Calcium 9.2 mg/dL (8.4-10.2); Carbon Dioxide 32 mmol/L (22-30); Chloride 103 mmol/L (98-107); Estimated CRCL calculation 33 ml/min; Estimated Glomerular Filt Rate > 60; Glucose 168 mg/dL (65-105); Magnesium 2.3 mg/dL (1.6-2.3); Potassium 3.6 mmol/L (3.4-5.0); Sodium 141 mmol/L (137-145)
[2019-10-25] MEDS: buPROPion HCL XL (24 HR) 150 MG TABCR PO (07:55)
[2019-10-25] MEDS: MEMANTINE 5 MG TABLET PO ×2 (07:55→16:45)
[2019-10-25] MEDS: lisinopriL 20 MG TABLET PO (07:55)
[2019-10-25] MEDS: DORNASE ALFA INH SOLN 1 MG/ML 2.5 ML AMP 2.5 MG INHALATION ×2 (08:52→20:14)
--- NOTE | 2019-10-25 12:50 | PM.IMPN ---
Progress Note: A&P Assessment and Plan (1) COPD exacerbation: Code(s): J44.1 - Chronic obstructive pulmonary disease with (acute) exacerbation Status: Acute Assessment and Plan: Patient presents with cough and increased shortness of breath. COVID negative; chest XR shows no infiltrate or consolidation, will discontinue antibiotics. Continue IV solu-medrol, decrease dose. Continue nebulized bronchodilator therapy with Duo Nebs in addition to pulmozyme. Intermittently using supplemental O2, can plan for home O2 evaluation prior to discharge. (2) Dementia: Qualifiers: Dementia type: unspecified type Dementia behavioral disturbance: with behavioral disturbance Qualified Code(s): F03.91 - Unspecified dementia with behavioral disturbance Code(s): F03.90 - Unspecified dementia without behavioral disturbance Status: Chronic Assessment and Plan: Continue home Namenda. Confused but not combative or aggressive. (3) HTN (hypertension): Code(s): I10 - Essential (primary) hypertension Status: Chronic Assessment and Plan: BPs elevated on arrival; improved with resuming her home antihypertensive. Continue home lisinopril. Stable, last 137/76. Monitor BP and adjust treatment as needed. (4) Hypothyroidism: Qualifiers: Hypothyroidism type: unspecified Qualified Code(s): E03.9 - Hypothyroidism, unspecified Code(s): E03.9 - Hypothyroidism, unspecified Status: Chronic Assessment and Plan: Continue home levothyroxine. Subjective Date/time seen: 10/25/19 12:30 Interval history: Ms. Zamora is a 79yo F with dementia admitted for COPD exacerbation. She is sleeping but wakes easily to verbal stimuli. She will not answer any of my questions. Review of Systems Review of Systems: ROS unobtainable: Yes unobtainable due to mental status Exam Narrative: Exam Narrative: General: Female resting comfortably in bed in no acute distress. HEENT: Normocephalic, EOMI, oral mucosa tacky. Cardiovascular: Rate and rhythm are regular. Respiratory: Diffuse expiratory wheezing MARK; respirations are even and nonlabored. Tolerating 1 L O2. Abdomen: Soft, non-tender, non-distended, bowel sounds present. Extremities: Peripheral pulses intact. No edema. Neuro: Confused. Alert and oriented only to self. Not able to participate in full neuro exam. Objective Data Vital Signs Vital Signs: Last Vital Signs Temp 97.9 F 10/25/19 14:00 Pulse 87 10/25/19 15:37 Resp 18 10/25/19 15:37 BP 137/76 10/25/19 14:00 Pulse Ox 93 10/25/19 14:00 Intake/Output Intake/Output: Intake & Output 10/22/19 10/23/19 10/24/19 10/25/19 23:59 23:59 23:59 23:59 Intake Total 1400 990 100 Output Total 200 Balance 1400 790 100 Meds/Results Medications: Active Medications Generic Name Dose Route Start Last Admin Trade Name Freq PRN Reason Stop Dose Admin Acetaminophen 650 mg 10/23/19 18:00 Tylenol Tablet PO Q4H PRN Mild Pain (1-3) or Fever Albuterol 2.5 mg 10/24/19 20:00 10/25/19 08:52 Albuterol Sulf Neb 2.5mg/0.5ml INHALATION 2.5 mg Q6HRT ELAINE Administration Bupropion HCl 150 mg 10/24/19 09:00 10/25/19 07:55 Wellbutrin Xl (24 Hr) PO 150 mg DAILY ELAINE Administration Dornase Moreno 2.5 mg 10/24/19 20:00 10/25/19 08:52 Pulmozyme INHALATION 2.5 mg Q12HRT ELAINE Administration Ipratropium [place] 0.5 mg 10/24/19 20:00 10/25/19 08:52 Atrovent Neb INHALATION 0.5 mg Q6HRT ELAINE Administration Levothyroxine Sodium 125 mcg 10/24/19 06:30 10/25/19 05:43 Synthroid PO 125 mcg DAILY@0630 ELAINE Administration Lisinopril 20 mg 10/24/19 09:00 10/25/19 07:55 Prinivil PO 20 mg DAILY ELAINE Administration Memantine
[2019-10-25 20:23] LABS: Add Urine Microscopic? YES; Appearance Urine Cloudy (Clear); Bilirubin Urine Negative (Negative); Blood Urine 1+ (Negative); Color Urine Yellow (Yellow); Glucose Urine UA Negative (Negative); Ketones Urine Negative (Negative); Leukocyte Esterase Ur 3+ LEU/UL (Negative); Mucus Urine Rare /lpf; Nitrate Urine Negative (Negative); Protein Urine 1+ mg/dL (Negative); Specific Grav Ur 1.015 (1.001-1.035); Squamous Epithelial Cell Urine Moderate /hpf (Few); Urobilinogen Urine Negative mg/dL (<2.0); WBC Urine >75 /hpf
--- NOTE | 2019-10-25 20:51 | PC.NURSE ---
post neb treatment this rn assisted to B/R and pt became SOB and restless. pt very confused (baseline) this rn increased o2 to 2LNC and spoe up to 92%. notified md of pts restlessness and non- cooperating behaviors as well as + UA , new orders received and carried out.
[2019-10-25] MEDS: HALOPERIDOL LACTATE 5 MG/ML VIAL IM (21:41)
[2019-10-26] VITALS (12 sets, daily range): BP systolic 131–142; BP diastolic 85–91; PULSE 93–105; RESP 18–24; TEMP 36.4–36.7; O2SAT 90–96
--- NOTE | 2019-10-26 03:34 | PM.EVENT ---
Event Note Event Note Event Note: CODE PURPLE NOTE This is a demented 79 year old female who is being treated for COPD and who was given Haldol IM earlier this evening for acute agitation tonight became agitated and combative. Code Xochitl was called. On my arrival to bedside the patient is being restrained by nursing staff. The patient is severely demented and not making any sense. Zyprexa IM was given. The patient calmed down shortly afterwards. I will continue to assess overnight as needed.
[2019-10-26] MEDS: OLANZapine 10 MG INJ VIAL IM (03:45)
[2019-10-26] MEDS: WATER, STERILE FOR INJECTION 10 ML VIAL XX (04:33)
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
[2019-10-26] MEDS: HALOPERIDOL LACTATE 5 MG/ML VIAL IM (05:26)
--- NOTE | 2019-10-26 05:27 | PC.NURSE ---
pt woke up again confused and arlene flores dr ladin notified and new orders received.
[2019-10-26 06:00] LABS: Basophils Absolute Auto 0.1 K/mm3 (0.0-0.1); Basophils Percent Auto 0.4 % (0.2-1.2); Eosinophils Percent Auto 0.1 % (0-4.4); Hematocrit 41.6 % (37.0-47.0); Hemoglobin 13.5 g/dL (12.0-15.0); Immature Granulocyte Absolute 0.44 K/mm3 (0.00-0.031); Immature Granulocyte Percent A 2.5 % (0-0.5); Lymphocytes Absolute Auto 1.48 K/mm3 (0.9-3.2); Lymphocytes Percent Auto 8.4 % (18.3-44.2); Mean Corpuscular HGB Conc 32.5 g/dl (32-36); Mean Corpuscular Hemoglobin 32.7 pg (26-34); Mean Corpuscular Volume 100.7 fl (80-100); Mean Platelet Volume 9.8 fl (7.4-10.4); Monocytes Absolute Auto 0.5 K/mm3 (0.1-0.6); Neutrophils Absolute Auto 15.1 K/mm3 (1.3-6.7); Neutrophils Percent Auto 85.6 % (45.5-73.1); Platelet Count Result 501 k/mm3 (150-375); Red Blood Count 4.13 M/mm3 (4.2-5.4); White Blood Count 17.7 K/mm3 (4.5-10.0)
[2019-10-26 06:12] LABS: Anion Gap 6 mmol/L (8-16); Blood Urea Nitrogen 18 mg/dL (7-17); Calcium 9.6 mg/dL (8.4-10.2); Carbon Dioxide 32 mmol/L (22-30); Chloride 105 mmol/L (98-107); Estimated CRCL calculation 33 ml/min; Estimated Glomerular Filt Rate > 60; Glucose 118 mg/dL (65-105); Magnesium 2.4 mg/dL (1.6-2.3); Potassium 3.9 mmol/L (3.4-5.0); Sodium 143 mmol/L (137-145)
[2019-10-26] MEDS: DORNASE ALFA INH SOLN 1 MG/ML 2.5 ML AMP 2.5 MG INHALATION ×2 (08:50→20:07)
[2019-10-26] MEDS: ALBUTEROL SULFATE NEB 2.5 MG/0.5 ML INH INHALATION ×3 (08:50→20:07)
[2019-10-26] MEDS: IPRATROPIUM BR 0.02% INH SOLN 0.5 MG/2.5 ML VIAL INHALATION ×3 (08:50→20:07)
[2019-10-26] MEDS: methylPREDNISolone SOD SUCC 125 MG VIAL 60 MG IV PUSH ×2 (10:00→20:22)
--- NOTE | 2019-10-26 11:26 | PCPTNOTE ---
PT attempted therapy 3x this A.M.. Patient sleeping soundly and unable to participate in therapy. RN reports patient had a sleepless night and was given medication. PT will plan to continue per plan of care.
--- NOTE | 2019-10-26 11:44 | PCNFU ---
Nutrition Follow-Up Complete: Underweight R/T inadequate intake as evidence by BMI of 16 Goal: PO intake of 50% or greater of meals to maintain wt Progressing towards goal. We will continue current goal. Pt current nutrition is Regular. Nutrition recommendation: Agree Last recorded weight is 37.1 kg. Bowel Motility:+BM reported 10/25 Labs Reviewed:BUN 18,Glu 118 Meds Noted:Solu-Medrol, Synthroid Additional Notes: Nutrition follow up, nursing reports pt woke up confused and combative. No breakfast today, overall oral intake's have been 10-75% of meals. Diet supplements continue of Ensure Compact BID providing an additional 220 kcals and 9 gms protein. Monitoring: PO intake, wt, labs every three days
--- NOTE | 2019-10-26 13:19 | PM.IMPN ---
Progress Note: A&P Assessment and Plan (1) COPD exacerbation: Code(s): J44.1 - Chronic obstructive pulmonary disease with (acute) exacerbation Status: Acute Assessment and Plan: Patient presents with cough and increased shortness of breath. COVID negative; chest XR shows hyperinflation without infiltrate or consolidation. Continue IV solu-medrol today and transition to oral prednisone tomorrow. Continue nebulized bronchodilator therapy with Duo Nebs in addition to pulmozyme. Intermittently using supplemental O2, can plan for home O2 evaluation prior to discharge. (2) Dementia: Qualifiers: Dementia type: unspecified type Dementia behavioral disturbance: with behavioral disturbance Qualified Code(s): F03.91 - Unspecified dementia with behavioral disturbance Code(s): F03.90 - Unspecified dementia without behavioral disturbance Status: Chronic Assessment and Plan: Continue home Namenda. Behavior disturbance overnight with agitation, treated with Haldol x 2 and Zyprexa x1 overnight, sleeping today. Consider adding seroquel this evening. (3) Acute UTI: Code(s): N39.0 - Urinary tract infection, site not specified Status: Acute Assessment and Plan: UA suspicious for UTI. IV Rocephin added back while awaiting urine culture. Blood cultures pending with no growth to date. (4) HTN (hypertension): Qualifiers: Hypertension type: essential hypertension Qualified Code(s): I10 - Essential (primary) hypertension Code(s): I10 - Essential (primary) hypertension Status: Chronic Assessment and Plan: Stable on home lisinopril today, last BP 131/89. Monitor BP and adjust treatment as needed. (5) Hypothyroidism: Qualifiers: Hypothyroidism type: unspecified Qualified Code(s): E03.9 - Hypothyroidism, unspecified Code(s): E03.9 - Hypothyroidism, unspecified Status: Chronic Assessment and Plan: Continue home levothyroxine. Subjective Date/time seen: 10/26/19 1145 Interval history: Ms. Zamora is a 79yo F with dementia admitted for COPD exacerbation. She had a rough night and morning with combative behavior and agitation, now sleeping. Review of Systems Review of Systems: Narrative: Twelve systems were reviewed with pertinent positives and negatives as per HPI. Exam Narrative: Exam Narrative: General: Female resting comfortably in bed in no acute distress. HEENT: Normocephalic, EOMI, oral mucosa tacky. Cardiovascular: Rate and rhythm are regular. Respiratory: Diffuse expiratory wheezing MARK; respirations are even and nonlabored. Tolerating 2 L O2. Abdomen: Soft, non-tender, non-distended, bowel sounds present. Extremities: Peripheral pulses intact. No edema. Neuro: Sleeping and not woken up for exam. Not able to participate in full neuro exam. Objective Data Vital Signs Vital Signs: Last Vital Signs Temp 98.1 F 10/26/19 14:00 Pulse 100 10/26/19 15:04 Resp 18 10/26/19 15:04 BP 131/89 10/26/19 14:00 Pulse Ox 95 10/26/19 14:00 Intake/Output Intake/Output: Intake & Output 10/23/19 10/24/19 10/25/19 10/26/19 23:59 23:59 23:59 23:59 Intake Total 1400 990 500 100 Output Total 200 200 Balance 1400 790 500 -100 Meds/Results Medications: Active Medications Generic Name Dose Route Start Last Admin Trade Name Freq PRN Reason Stop Dose Admin Acetaminophen 650 mg 10/23/19 18:00 Tylenol Tablet PO Q4H PRN Mild Pain (1-3) or Fever Albuterol 2.5 mg 10/24/19 20:00 10/26/19 08:50 Albuterol Sulf Neb 2.5mg/0.5ml INHALATION 2.5 mg Q6HRT ELAINE Administration Bupropion HCl 150 mg 10/24/19 09:00 10/25/19 07:55 Wellbutrin Xl (24 Hr) P
[2019-10-26] MEDS: QUEtiapine FUMARATE 12.5 MG TABLET PO (20:23)
[2019-10-27] VITALS (17 sets, daily range): BP systolic 143–148; BP diastolic 72–83; PULSE 83–114; RESP 18; TEMP 36.4–37; O2SAT 88–100
[2019-10-27] MEDS: IPRATROPIUM BR 0.02% INH SOLN 0.5 MG/2.5 ML VIAL INHALATION ×3 (02:07→14:42)
[2019-10-27] MEDS: ALBUTEROL SULFATE NEB 2.5 MG/0.5 ML INH INHALATION ×3 (02:07→14:42)
[2019-10-27 06:35] LABS: Basophils Percent Auto 0.2 % (0.2-1.2); Hematocrit 40.5 % (37.0-47.0); Hemoglobin 12.9 g/dL (12.0-15.0); Immature Granulocyte Absolute 0.12 K/mm3 (0.00-0.031); Immature Granulocyte Percent A 1.3 % (0-0.5); Lymphocytes Absolute Auto 1.02 K/mm3 (0.9-3.2); Lymphocytes Percent Auto 10.8 % (18.3-44.2); Mean Corpuscular HGB Conc 31.9 g/dl (32-36); Mean Corpuscular Hemoglobin 32.3 pg (26-34); Mean Corpuscular Volume 101.3 fl (80-100); Mean Platelet Volume 9.7 fl (7.4-10.4); Monocytes Absolute Auto 0.2 K/mm3 (0.1-0.6); Monocytes Percent Auto 2.2 % (2.6-8.5); Neutrophils Absolute Auto 8.1 K/mm3 (1.3-6.7); Neutrophils Percent Auto 85.5 % (45.5-73.1); Platelet Count Result 427 k/mm3 (150-375); Red Cell Distribution Width 14.1 % (11.5-14.5); White Blood Count 9.4 K/mm3 (4.5-10.0)
[2019-10-27] MEDS: LEVOTHYROXINE SODIUM 125 MCG TABLET PO (06:44)
[2019-10-27 06:50] LABS: Anion Gap 4 mmol/L (8-16); Blood Urea Nitrogen 19 mg/dL (7-17); Calcium 9.2 mg/dL (8.4-10.2); Carbon Dioxide 33 mmol/L (22-30); Chloride 105 mmol/L (98-107); Estimated CRCL calculation 33 ml/min; Estimated Glomerular Filt Rate > 60; Glucose 134 mg/dL (65-105); Magnesium 2.7 mg/dL (1.6-2.3); Potassium 4.5 mmol/L (3.4-5.0); Sodium 142 mmol/L (137-145)
[2019-10-27] MEDS: DORNASE ALFA INH SOLN 1 MG/ML 2.5 ML AMP 2.5 MG INHALATION (08:36)
[2019-10-27] MEDS: buPROPion HCL XL (24 HR) 150 MG TABCR PO (10:42)
[2019-10-27] MEDS: MEMANTINE 5 MG TABLET PO (10:42)
[2019-10-27] MEDS: lisinopriL 20 MG TABLET PO (10:42)
[2019-10-27] MEDS: predniSONE 20 MG TABLET 40 MG PO (10:42)
--- NOTE | 2019-10-27 13:23 | PM.DS ---
DS: Admitting Diagnosis Admitting Diagnosis Admitting Diagnosis: Cough and shortness of breath DS: Discharge Diagnosis Discharge Diagnosis (1) COPD exacerbation: Code(s): J44.1 - Chronic obstructive pulmonary disease with (acute) exacerbation Status: Acute Assessment and Plan: Date of Service 10/27/19: Ms. Zamora is a 79yo F with significant dementia, COPD, hypertension and hypothyroidism who presented to the ED for evaluation of shortness of breath and cough. Chest XR showed hyperinflation without infiltrate or consolidation. COVID testing was negative. She was treated for COPD exacerbation with steroids and nebulized bronchodilators. She did intermittently require supplemental oxygen. Home oxygen evaluation prior to discharge determined she did not qualify for home O2 set up. Symptoms improved with the therapy outlined above and she was hemodynamically stable for discharge 10/27/19 with prescriptions for a tapered prednisone course and inhalers; instructions to follow up with PCP 1-2 weeks. Discussed updates with her daughter at the bedside. The patient is significantly confused. She did require patient sitter through some of the admission and was noted to have some episodes of agitation requiring Haldol and Xyprexa. Night prior to discharge she did well with a low-dose seroquel. She was feeling well day of discharge. Family to help her at home. Adult protective services has been following with her prior to this admission and have been made aware of her hospitalization. (2) Dementia: Qualifiers: Dementia type: unspecified type Dementia behavioral disturbance: with behavioral disturbance Qualified Code(s): F03.91 - Unspecified dementia with behavioral disturbance Code(s): F03.90 - Unspecified dementia without behavioral disturbance Status: Chronic Assessment and Plan: Continue home Namenda. Behavior disturbance overnight with agitation, treated with Haldol x 2 and Zyprexa x1. Evening prior to discharge she did well with no acute issues after a low-dose seroquel. (3) Acute UTI: Code(s): N39.0 - Urinary tract infection, site not specified Status: Ruled-out Assessment and Plan: Abnormal UA, was started on IV rocephin x 2 doses; UTI ruled out with negative urine culture and antibiotics were discontinued. (4) HTN (hypertension): Qualifiers: Hypertension type: essential hypertension Qualified Code(s): I10 - Essential (primary) hypertension Code(s): I10 - Essential (primary) hypertension Status: Chronic Assessment and Plan: Stable on home lisinopril. (5) Hypothyroidism: Qualifiers: Hypothyroidism type: unspecified Qualified Code(s): E03.9 - Hypothyroidism, unspecified Code(s): E03.9 - Hypothyroidism, unspecified Status: Chronic Assessment and Plan: Continue home levothyroxine. DS: Summary Time Spent with Patient Time attestation: Total time spent providing and/or coordinating discharge services: 35 minutes Exam Narrative: Exam Narrative: General: Female resting comfortably in bed in no acute distress. HEENT: Normocephalic, EOMI, oral mucosa tacky. Cardiovascular: Rate and rhythm are regular. Respiratory: Faint expiratory wheezing MARK is improved; respirations are even and nonlabored. Abdomen: Soft, non-tender, non-distended, bowel sounds present. Extremities: Peripheral pulses intact. No edema. Neuro: Confused, oriented to self. Follows some simple commands but cannot answer all questions appropriately. Her daughter is at the bedside at time of discharge and confirms this is the patient's baseline. DS: Data Data Completed and Pending Labs on day of discharge: Last Vital Si
--- NOTE | 2019-10-27 15:21 | HOMEO2EVAL ---
Home Oxygen Evaluation RC: Home Oxygen (O2) Evaluation Start: 10/27/19 13:34 Freq: ONCE Status: Active Protocol: RPE Activity Type Activity Date Activity User E-Sign Co-Sign Detail Recorded Client Recorded Date Recorded By Document 10/27/19 14:20 RES [email or web address] 10/27/19 15:15 RES Document 10/27/19 14:24 RES [email or web address] 10/27/19 15:21 RES Document 10/27/19 14:25 RES [email or web address] 10/27/19 15:21 RES Document 10/27/19 14:26 RES [email or web address] 10/27/19 15:21 RES Document 10/27/19 14:28 RES [email or web address] 10/27/19 15:21 RES Document 10/27/19 14:30 RES [email or web address] 10/27/19 15:21 RES Document 10/27/19 14:32 RES [email or web address] 10/27/19 15:21 RES Document 10/27/19 14:34 RES [email or web address] 10/27/19 15:21 RES 10/27/19 10/27/19 10/27/19 14:20 14:24 14:25 Home O2 Evaluation Test Phase Resting Resting Exercise Oxygen Delivery Nasal Cannula Room Air Room Air Oxygen Flow Rate (L/min) 1 Fraction of Inspired Oxygen (%) 24 21 21 Pulse Oximetry (90-100 %) 92 92 90 Pulse Rate (60-100 beats/min) 103 H 107 H 107 H Activity Tolerance Good Good Good Rate of Perceived Exertion (PE) 6 Very, very light Home Oxygen Evaluation Comments pt sitting on pt sitting on side of bed on side of bed 1lpm nasal comfortably on cannula. RT room air placed pt on room air at this time. Treatment Charges O2 Evaluation 10/27/19 10/27/19 10/27/19 14:26 14:28 14:30 Home O2 Evaluation Test Phase Exercise Exercise Exercise Oxygen Delivery Room Air Room Air Room Air Oxygen Flow Rate (L/min) Fraction of Inspired Oxygen (%) 21 21 21 Pulse Oximetry (90-100 %) 90 90 89 L Pulse Rate (60-100 beats/min) 107 H 107 H 112 H Activity Tolerance Good Good Good Rate of Perceived Exertion (PE) 6 Very, very 6 Very, very 6 Very, very light light light Home Oxygen Evaluation Comments pt went to 89 but recovers very quickly to 90% Treatment Charges 10/27/19 10/27/19 14:32 14:34 Home O2 Evaluation Test Phase Exercise Resting Oxygen Delivery Room Air Room Air Oxygen Flow Rate (L/min) Fraction of Inspired Oxygen (%) 21 21 Pulse Oximetry (90-100 %) 88 L 92 Pulse Rate (60-100 beats/min) 114 H 110 H Activity Tolerance Good Good Rate of Perceived Exertion (PE) 6 Very, very 6 Very, very light light Home Oxygen Evaluation Comments pt went to 88 pt sitting on briefly but side of bed recovers very comfortably on quickly to 90%. room air and is pt stated she not SOB. is not sob. Treatment Charges
== END 2019-10-27 16:05 | disposition home or self-care (01) | DRG 191 ==
LOC: ANHED 18:15 → ANH3MEDSUR 19:07
PROVIDERS: General Practice; Internal Medicine; Physician Assistant; Admitting Provider Internal Medicine; Emergency Provider Emergency Medicine; PCP Family Medicine; Visit Provider Internal Medicine
DX: J44.1 Chronic obstructive pulmonary disease with (acute) exacerbation (principal); F03.91 Unspecified dementia, unspecified severity, with behavioral disturbance; I10 Essential (primary) hypertension; E03.9 Hypothyroidism, unspecified; Z20.828 Contact with and (suspected) exposure to other viral communicable diseases; K21.9 Gastro-esophageal reflux disease without esophagitis; Z86.73 Personal history of transient ischemic attack (TIA), and cerebral infarction without residual deficits; Z87.891 Personal history of nicotine dependence
CPT/HCPCS: 36415; 36600; 71045; 80048; 80053; 81001; 82375; 82728; 82805; 83050; 83605; 83735; 85025; 85027; 86140; 87040; 87086; 87088; 87635; 93005; 94618; 94640; 96365; 96367; 96375; 96376; 97110; 97116; 97161; 97165; 99285; A9270; C9803; G0378; J0131; J0456; J0696; J1630; J2930; J7030; J7512; U0003

== ENCOUNTER 2019-12-24 18:42 | Observation (INO) | payer MEDICARE, SELFPAY ==
[2019-12-24] VITALS (10 sets, daily range): BP systolic 116; BP diastolic 92; PULSE 78–101; RESP 17–27; TEMP 37.1; O2SAT 95
--- NOTE | ~2019-12-24 | XR_ITS ---
EXAMINATION: XR forearm RT 2V EXAM DATE: 12/24/2019 20:01 INDICATION: Initial encounter following injury, with pain of the right forearm. TECHNIQUE: Right forearm frontal and lateral projections obtained and reviewed. There is no prior st udy for comparison. FINDINGS: There are no acute right forearm fractures or dislocations identified. There is no subcuta neous gas. There are arterial calcifications, arteriosclerosis. There are no radiopaque foreign samir dies. IMPRESSION: 1. XR forearm RT 2V exam without acute osseous findings. Reviewed, dictated and finalized at location A.
--- NOTE | ~2019-12-24 | XR_ITS ---
EXAMINATION: XR_[id number]_CR EXAM DATE: 12/24/2019 20:00 INDICATION: Left rib pain, injury. TECHNIQUE: Frontal projection of the upper left ribs, frontal projection of the lower left ribs, obli que projection of the left ribs, frontal chest x-ray(s) for interpretation. Comparison is made to luisa or examination from 10/23/2019. FINDINGS: There are no displaced acute left rib fractures identified. There is no soft tissue abnor mality seen. Severe chronic hyperinflation. No confluent consolidation, pneumothorax or pleural effus ion suspected. Cardiomediastinal silhouette is normal. There is aortic arteriosclerosis. Old left mi dclavicular fracture. IMPRESSION: No displaced left rib fractures. Chronic hyperinflation. Reviewed, dictated and finalized at location A.
--- NOTE | ~2019-12-24 | CT_ITS ---
EXAMINATION: CT brain wo con EXAM DATE: 12/24/2019 19:47 INDICATION: Confusion, altered mental status. TECHNIQUE: Spiral CT of the head was performed without contrast. Axial, coronal and sagittal images were reviewed. The dose-length product (DLP) for this examination was 605.33 mGy-cm. The exposure w as tailored according to patient size, and iterative reconstruction (ASIR) was used as additional dos e reduction technique. Comparison is made to prior examination from 08/25/2018. FINDINGS: There is no acute intraparenchymal hemorrhage. No evidence of intraparenchymal brain mass lesion. No evidence of acute infarction. Please note that initial head CT has limited sensitivity f or small or acute infarctions. There is moderate periventricular and subcortical hypodensity, nonspec ific but probably related to small vessel ischemic disease. There moderate is prominence of the sul ci and ventricles related to cerebral atrophy. There is intracranial carotid arteriosclerosis. The re are no extra-axial collections. There is no mass effect or midline shift. Patient has had bilate ral ocular lens surgery. Soft tissue is unremarkable. The visualized sinuses and mastoid air cells are well aerated. IMPRESSION: 1. No acute intracranial findings. 2. Chronic age related findings. Reviewed, dictated and finalized at location A.
--- NOTE | 2019-12-24 19:29 | ECG_ITS ---
Measurements Intervals [place] Rate: 81 P: -14 GA: 159 QRS: -9 QRSD: 76 T: 9 QT: 362 QTc: 422 Interpretive Statements SINUS RHYTHM NONSPECIFIC T-WAVE ABNORMALITY- ANTERIOR LEADS BASELINE ARTIFACT- I, II, III, AVR, AVL, AVF, V1 BORDERLINE ECG Electronically Signed On 12-25-2019 6:57:38 CDT by Del Dill D.O.
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
[2019-12-24 19:44] LABS: Basophils Absolute Auto 0.1 K/mm3 (0.0-0.1); Basophils Percent Auto 0.7 % (0.2-1.2); Eosinophils Absolute Auto 0.1 K/mm3 (0-0.3); Eosinophils Percent Auto 1.4 % (0-4.4); Hematocrit 40.1 % (37.0-47.0); Hemoglobin 13.3 g/dL (12.0-15.0); Immature Granulocyte Absolute 0.04 K/mm3 (0.00-0.031); Immature Granulocyte Percent A 0.4 % (0-0.5); Lymphocytes Percent Auto 15.2 % (18.3-44.2); Mean Corpuscular HGB Conc 33.2 g/dl (32-36); Mean Corpuscular Hemoglobin 34.5 pg (26-34); Mean Corpuscular Volume 104.2 fl (80-100); Mean Platelet Volume 9.9 fl (7.4-10.4); Monocytes Absolute Auto 0.9 K/mm3 (0.1-0.6); Monocytes Percent Auto 8.8 % (2.6-8.5); Neutrophils Absolute Auto 7.2 K/mm3 (1.3-6.7); Neutrophils Percent Auto 73.5 % (45.5-73.1); Platelet Count Result 257 k/mm3 (150-375); Red Blood Count 3.85 M/mm3 (4.2-5.4); Red Cell Distribution Width 11.8 % (11.5-14.5); White Blood Count 9.9 K/mm3 (4.5-10.0)
[2019-12-24 19:55] LABS: Partial Thromboplastin Time 27.8 SECONDS (22.3-36.8); Prothrombin Time 13.1 Seconds (11.1-14.7)
[2019-12-24 19:56] LABS: Alanine Aminotransferase 11 U/L (4-35); Albumin Level 4.2 g/dL (3.5-5.1); Alkaline Phosphatase 91 U/L (38-126); Anion Gap 7 mmol/L (8-16); Aspartate Amino Transferase 30 U/L (14-36); Bilirubin,Total 0.4 mg/dL (0.2-1.3); Blood Urea Nitrogen 14 mg/dL (7-17); Calcium 9.7 mg/dL (8.4-10.2); Carbon Dioxide 31 mmol/L (22-30); Chloride 106 mmol/L (98-107); Estimated CRCL calculation 29 ml/min; Estimated Glomerular Filt Rate 60; Glucose 81 mg/dL (65-105); Potassium 3.8 mmol/L (3.4-5.0); Sodium 144 mmol/L (137-145)
[2019-12-24 19:57] LABS: Ethanol < 10 mg/dL (<10)
[2019-12-24 20:18] LABS: Lactic Acid Reflex 1.1 mmol/L (0.7-2.1)
[2019-12-24] MEDS: SODIUM CHLORIDE 0.9% IV 1,000 ML 999 ML IV CONT (21:00)
[2019-12-24 21:59] LABS: Add Urine Microscopic? YES; Appearance Urine Cloudy (Clear); Bilirubin Urine Negative (Negative); Blood Urine Negative (Negative); Calcium Oxalate Crystals Urine Present /hpf; Color Urine Yellow (Yellow); Glucose Urine UA Negative (Negative); Ketones Urine Negative (Negative); Leukocyte Esterase Ur 2+ LEU/UL (Negative); Mucus Urine Few /lpf; Nitrate Urine Negative (Negative); Protein Urine 1+ mg/dL (Negative); RBC Urine 21-50 /hpf (0-2); Squamous Epithelial Cell Urine Many /hpf (Few); WBC Urine 21-30 /hpf
[2019-12-24 22:07] LABS: Amphetamine Screen Urine Negative (Negative); Barbiturate Screen Urine Negative (Negative); Benzodiazepines Screen Urine Negative (Negative); Cannabinoid Screen Urine Negative (Negative); Cocaine Screen Urine Negative (Negative); Methadone Screen Urine Negative (Negative); Opiate Screen Urine Negative (Negative); Phencyclidine Screen Urine Negative (Negative)
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
[2019-12-24] MEDS: TETANUS,DIPHTHERIA,AC PERTUSSIS ADULT (0.5 ML) BOOSTRIX IM (23:14)
[2019-12-25] VITALS (38 sets, daily range): BP systolic 126–163; BP diastolic 64–98; PULSE 68–90; RESP 12–29; TEMP 36.7–36.9; O2SAT 96–100
[2019-12-25] MEDS: LORazepam INJ (*CRX) 2 MG/ML VIAL 0.5 MG IV PUSH (01:34)
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
--- NOTE | 2019-12-25 10:02 | PC.NURSE ---
Contacted care coordination to assist with placement of pt.
--- NOTE | 2019-12-25 15:47 | PC.NURSE ---
[facility] refused pt - Too high acuity
[2019-12-25 18:05] LABS: Magnesium 1.8 mg/dL (1.6-2.3)
[2019-12-25 19:01] LABS: SARS-CoV-2 RNA PCR Negative
--- NOTE | 2019-12-25 19:19 | PCCCNOTE ---
Clinicals sent to multiple facilities in an attempt to find a [facility] bed for this patient. [facility] was not able to provide placement. [facility] in [place] does not accept patient's with dementia, [facility] does not accept geriatric patients, [facility] does not have bed availablilty, [facility] in [place] does not have bed availability, [facility] does not have bed availability. Clinicals, involuntary petition,intake referral forms, inpatient certificate sent to [facility]. Additional labs were requested by [facility] and they were also faxed. supervisor compressed yeast's phone number was given for [facility] as contact. [facility] in [place] took information over the phone and face sheet was faxed. Still awaiting to hear back from [facility]. ED charge nurse, Dr Fong and Jus RN were updated
--- NOTE | 2019-12-25 19:41 | PCCCNOTE ---
Also, no bed availabiliity at [facility], or at [facility]. Christie at [phone] knew of no other appropriate location for placement. [facility] is full. [facility] [place] is full. [facility] does not take dementia patients
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
--- NOTE | 2019-12-25 22:01 | PC.NURSE ---
[facility] from [facility] advised they can not except admission r/t there high acuity.
[2019-12-26] MEDS: HALOPERIDOL LACTATE 5 MG/ML VIAL IM (00:10)
[2019-12-26] MEDS: LORazepam INJ (*CRX) 2 MG/ML VIAL 0.5 MG IV PUSH (00:23)
[2019-12-26] MEDS: LORazepam INJ (*CRX) 2 MG/ML VIAL 1 MG IM (00:36)
--- NOTE | 2019-12-26 01:35 | ADMGEN ---
This patient, Mireya Zamora, was admitted to Medical Room 344-01. Patient/family oriented to hospital policies and general routines including ID bracelet, bed and alarms, visiting hours, pain management, procedures, bathroom and other care routines, personal items, smoking policy, room service/diet, and visiting hours. Valuables list has been completed. Information on how to activate the Rapid Response Team has been discussed. Patient/Family are encouraged to report perceived risks to care and to ask questions if they do not understand what they are told or what they should do.
[2019-12-26 01:56] VITALS: BP 158/101; PULSE 80; RESP 18; TEMP 36.8; O2SAT 96
[2019-12-26 01:57] VITALS: BMI 16.0
[2019-12-26 02:02] VITALS: BMI 16.0
--- NOTE | 2019-12-26 02:21 | PC.NURSE ---
Was unable to obtain some information for admission purposes. Patient was admitted with dementia, agitation, psychosis, and behavior disturbance. She was given 1.5 mg Ativan and 5 mg Haldol in ED before coming up to the floor. Patient is sedated and unaware of her surroundings at this time. Some information was given by family and past medical history.
[2019-12-26 05:22] VITALS: BP 189/104; PULSE 75; RESP 22; TEMP 36.6; O2SAT 96
[2019-12-26] MEDS: hydrALAZINE HCL 20 MG/ML VIAL 10 MG IV PUSH (05:50)
[2019-12-26] MEDS: LEVOTHYROXINE SODIUM 125 MCG TABLET PO (06:34)
[2019-12-26 08:21] LABS: Basophils Absolute Auto 0.1 K/mm3 (0.0-0.1); Basophils Percent Auto 0.9 % (0.2-1.2); Eosinophils Absolute Auto 0.2 K/mm3 (0-0.3); Eosinophils Percent Auto 2.3 % (0-4.4); Hematocrit 42.7 % (37.0-47.0); Hemoglobin 14.6 g/dL (12.0-15.0); Immature Granulocyte Absolute 0.02 K/mm3 (0.00-0.031); Immature Granulocyte Percent A 0.2 % (0-0.5); Lymphocytes Absolute Auto 2.33 K/mm3 (0.9-3.2); Lymphocytes Percent Auto 28.7 % (18.3-44.2); Mean Corpuscular HGB Conc 34.2 g/dl (32-36); Mean Corpuscular Hemoglobin 34.4 pg (26-34); Mean Corpuscular Volume 100.5 fl (80-100); Mean Platelet Volume 10.1 fl (7.4-10.4); Monocytes Absolute Auto 0.7 K/mm3 (0.1-0.6); Monocytes Percent Auto 8.2 % (2.6-8.5); Neutrophils Absolute Auto 4.9 K/mm3 (1.3-6.7); Neutrophils Percent Auto 59.7 % (45.5-73.1); Platelet Count Result 262 k/mm3 (150-375); Red Blood Count 4.25 M/mm3 (4.2-5.4); Red Cell Distribution Width 11.3 % (11.5-14.5); White Blood Count 8.1 K/mm3 (4.5-10.0)
[2019-12-26 08:33] LABS: Anion Gap 6 mmol/L (8-16); Blood Urea Nitrogen 9 mg/dL (7-17); Calcium 9.5 mg/dL (8.4-10.2); Carbon Dioxide 32 mmol/L (22-30); Chloride 105 mmol/L (98-107); Estimated CRCL calculation 37 ml/min; Estimated Glomerular Filt Rate > 60; Glucose 104 mg/dL (65-105); Potassium 3.9 mmol/L (3.4-5.0); Sodium 143 mmol/L (137-145)
[2019-12-26] MEDS: lisinopriL 20 MG TABLET PO (08:40)
[2019-12-26] MEDS: MEMANTINE 5 MG TABLET PO ×2 (08:40→16:48)
[2019-12-26] MEDS: lamoTRIgine 25 MG TABLET PO ×2 (08:40→16:48)
[2019-12-26] MEDS: CITALOPRAM HYDROBROMIDE 20 MG TABLET 40 MG PO (08:40)
[2019-12-26] MEDS: busPIRone HCL 5 MG TABLET PO (08:40)
[2019-12-26] MEDS: buPROPion HCL 75 MG TABLET PO (08:41)
[2019-12-26 09:02] VITALS: BP 148/73; PULSE 76; RESP 12; TEMP 36.1; O2SAT 99
[2019-12-26 09:40] LABS: Folic Acid 4.9 ng/mL (2.76->20)
[2019-12-26 09:47] LABS: Magnesium 1.9 mg/dL (1.6-2.3)
[2019-12-26 11:32] VITALS: BMI 16.0
[2019-12-26 12:00] VITALS: BP 120/61; PULSE 78; RESP 14; TEMP 35.6; O2SAT 96
[2019-12-26 13:43] LABS: Free T4 Free Thyroxine Reflex 0.69 ng/dL (0.78-2.19)
--- NOTE | 2019-12-26 15:53 | PM.IMPN ---
Progress Note: A&P Assessment and Plan (1) Behavior disturbance: Code(s): F91.9 - Conduct disorder, unspecified Status: Acute Assessment and Plan: Currently the patient is not exhibiting any aggressive behavior. She is sleeping without any issues at this time. We will treat any acute aggressive with antipyschotic medications. Normal vitamin B12 and folic acid. Normal labs and BMP. Could have a UTI since her urinalysis was abnormal so will continue monitoring. Care coordination consult in am for [facility] placement. (2) Dementia: Qualifiers: Dementia behavioral disturbance: with behavioral disturbance Dementia type: unspecified type Qualified Code(s): F03.91 - Unspecified dementia with behavioral disturbance Code(s): F03.90 - Unspecified dementia without behavioral disturbance Status: Chronic Assessment and Plan: The patient has advanced dementia. Continue memantine PO. (3) Abnormal urinalysis: Code(s): R82.90 - Unspecified abnormal findings in urine Status: Acute Assessment and Plan: Urinalysis is abnormal. Urine culture is pending. She was empirically treated with Ceftriaxone IV. (4) COPD (chronic obstructive pulmonary disease): Qualifiers: COPD type: unspecified COPD Qualified Code(s): J44.9 - Chronic obstructive pulmonary disease, unspecified Code(s): J44.9 - Chronic obstructive pulmonary disease, unspecified Status: Chronic Assessment and Plan: Continue bronchodilators. (5) Hypothyroidism: Qualifiers: Hypothyroidism type: unspecified Qualified Code(s): E03.9 - Hypothyroidism, unspecified Code(s): E03.9 - Hypothyroidism, unspecified Status: Chronic Assessment and Plan: Patient's TSH was elevated at 12 and then repeated again this morning and found to be 23.5. T4 is low. This is indicative that she has not been taking her medications as prescribed. Will start her back on her normal levothyroxine dose and will need to recheck this in 6 weeks. (6) HTN (hypertension): Qualifiers: Hypertension type: essential hypertension Qualified Code(s): I10 - Essential (primary) hypertension Code(s): I10 - Essential (primary) hypertension Status: Chronic Assessment and Plan: Blood pressure has been stable since arrival.. Continue lisinopril PO. Continue monitoring Time Spent With Patient Time with patient: 25 - 35 minutes Subjective Date/time seen: 12/26/19 15:53 Interval history: Date of Service 12/26/2019: The patient appears to be very drowsy. She is alert with saying her name and touching her but will not answer any questions for me. Unable to obtain further information from her at this time. Review of Systems Review of Systems: All systems reviewed & are unremarkable except as noted in HPI and below Exam Narrative: Exam Narrative: General: 79-year-old cachectic woman laying flat in bed with her knees been tonight degree angles. Appears comfortable. In no acute distress. Skin: No jaundice or cyanosis. Good skin turgor. Neck: Full range of motion. Supple. Respiratory: Lungs are clear to auscultation bilaterally. No wheezing, rales or rhonchi. No bony chest wall tenderness. Cardiovascular: The heart has a regular rate and rhythm without murmur. Lower extremities: No lower extremity edema. Distal pulses are easily palpated. No calf tenderness to palpation. Gastrointestinal: The abdomen is soft, nontender and nondistended with active bowel sounds. Psychiatric: Sleeping during examination, intermittently wakes up to her name or touch. Calm at this time. Ne
[2019-12-26 16:02] VITALS: BP 115/56; PULSE 79; RESP 18; TEMP 36.3; O2SAT 96
[2019-12-26 19:37] VITALS: BP 138/60; PULSE 83; RESP 12; TEMP 36.8; O2SAT 96
[2019-12-27 00:46] VITALS: BP 111/56; PULSE 88; RESP 16; TEMP 36.8; O2SAT 95
[2019-12-27] MEDS: LEVOTHYROXINE SODIUM 125 MCG TABLET PO (05:50)
[2019-12-27 05:52] VITALS: BP 121/62; PULSE 88; RESP 16; TEMP 36.5; O2SAT 94
[2019-12-27 06:29] LABS: Potassium 3.9 mmol/L (3.4-5.0)
[2019-12-27 06:53] LABS: Anion Gap 4 mmol/L (8-16); Blood Urea Nitrogen 10 mg/dL (7-17); Calcium 9.2 mg/dL (8.4-10.2); Carbon Dioxide 30 mmol/L (22-30); Chloride 106 mmol/L (98-107); Estimated CRCL calculation 32 ml/min; Estimated Glomerular Filt Rate > 60; Glucose 85 mg/dL (65-105); Sodium 140 mmol/L (137-145)
[2019-12-27 09:00] VITALS: BP 119/72; PULSE 88; RESP 18; TEMP 36.1; O2SAT 94
[2019-12-27 09:57] VITALS: RESP 16; O2SAT 94
[2019-12-27] MEDS: MEMANTINE 5 MG TABLET PO (09:57)
[2019-12-27] MEDS: CITALOPRAM HYDROBROMIDE 20 MG TABLET 40 MG PO (09:57)
[2019-12-27] MEDS: buPROPion HCL 75 MG TABLET PO (09:57)
[2019-12-27] MEDS: lisinopriL 20 MG TABLET PO (09:57)
[2019-12-27] MEDS: lamoTRIgine 25 MG TABLET PO (09:57)
--- NOTE | 2019-12-27 12:03 | PM.DS ---
DS: Admitting Diagnosis Admitting Diagnosis Admitting Diagnosis: dementia with behavioral disturbance, uti DS: Discharge Diagnosis Discharge Diagnosis (1) Behavior disturbance: Code(s): F91.9 - Conduct disorder, unspecified Status: Acute Assessment and Plan: Currently the patient is not exhibiting any aggressive behavior. She is awake and alert, pleasantly confused. Normal vitamin B12 and folic acid. Normal labs and BMP. The patient does not have a UTI at this time. Most likely just from advanced dementia. She was in excepted into [facility] memory care unit upon discharge (2) Dementia: Qualifiers: Dementia behavioral disturbance: with behavioral disturbance Dementia type: unspecified type Qualified Code(s): F03.91 - Unspecified dementia with behavioral disturbance Code(s): F03.90 - Unspecified dementia without behavioral disturbance Status: Chronic Assessment and Plan: The patient has advanced dementia. Continue memantine PO. (3) Abnormal urinalysis: Code(s): R82.90 - Unspecified abnormal findings in urine Status: Acute Assessment and Plan: Urinalysis is abnormal, but culture results are negative so IV antibiotics were discontinued. (4) COPD (chronic obstructive pulmonary disease): Qualifiers: COPD type: unspecified COPD Qualified Code(s): J44.9 - Chronic obstructive pulmonary disease, unspecified Code(s): J44.9 - Chronic obstructive pulmonary disease, unspecified Status: Chronic Assessment and Plan: Continue bronchodilators. (5) Hypothyroidism: Qualifiers: Hypothyroidism type: unspecified Qualified Code(s): E03.9 - Hypothyroidism, unspecified Code(s): E03.9 - Hypothyroidism, unspecified Status: Chronic Assessment and Plan: Patient's TSH was elevated at 12 and then repeated again this morning and found to be 23.5. T4 is low. This is indicative that she has not been taking her medications as prescribed. Will start her back on her normal levothyroxine dose and will need to recheck this in 6 weeks. (6) HTN (hypertension): Qualifiers: Hypertension type: essential hypertension Qualified Code(s): I10 - Essential (primary) hypertension Code(s): I10 - Essential (primary) hypertension Status: Chronic Assessment and Plan: Blood pressure has been stable since arrival. Continue lisinopril PO. Continue monitoring DS: Summary Hospital Course Reason for hospitalization: Patient is a 79-year-old woman with a history of dementia that has progressively gotten worse over the last 6 months with aggressive behavior. The patient lives with her daughter who is unable to take care for anymore. The daughter is currently going through court to trying get guardianship and [id number]-[id number] over her mother. Initial Vitals showed temperature of 98.7?, blood pressure 116/92, slight tachycardic heart rate 101, respiratory rate 18, oxygen saturation 95% on room air. Initial labs showed elevated MCV with normal H&H. Normal coag panel. Normal CMP. Normal lactic. Urinalysis showed 2+ leukocyte esterase, wbc's 21-30, and many squamous cells which appeared to be a contamination but she had been started on IV antibiotics in the ER which were continued until culture results returned. CT head showed no acute intracranial findings, chronic age-related findings. Chest x-ray of her ribs showed no displaced left rib fracture, chronic hyperinflation. X-ray forearm showed no acute osseous abnormality. Did the patient's aggressive behavior she was in the emergency department for over 24 hours t
[2019-12-27 13:00] VITALS: BP 126/70; PULSE 80; RESP 18; TEMP 36.4; O2SAT 98
== END 2019-12-27 14:00 ==
LOC: ANHED 12-25 22:00 → ANH3MED 12-26 01:41
PROVIDERS: Emergency Medicine; Physician Assistant; Admitting Provider Family Medicine; Emergency Provider General Practice; PCP Family Medicine; Visit Provider Internal Medicine
DX: F03.91 Unspecified dementia, unspecified severity, with behavioral disturbance (principal); Z20.828 Contact with and (suspected) exposure to other viral communicable diseases; J44.9 Chronic obstructive pulmonary disease, unspecified; Z86.73 Personal history of transient ischemic attack (TIA), and cerebral infarction without residual deficits; Z87.891 Personal history of nicotine dependence; E03.9 Hypothyroidism, unspecified; I10 Essential (primary) hypertension; F91.9 Conduct disorder, unspecified; R82.90 Unspecified abnormal findings in urine; Z79.899 Other long term (current) drug therapy; R07.81 Pleurodynia; M79.631 Pain in right forearm
CPT/HCPCS: 36415; 70450; 71101; 73090; 80048; 80053; 80307; 81001; 82607; 82746; 83605; 83735; 84439; 84443; 85025; 85610; 85730; 87086; 87088; 87635; 90471; 90715; 93005; 96361; 96365; 96375; 99285; A9270; C9803; G0378; J0360; J0696; J1630; J2060; J7030; U0003

== ENCOUNTER 2020-03-09 14:06 | Observation (INO) | payer MEDICARE, SELFPAY ==
[2020-03-09] VITALS (11 sets, daily range): BP systolic 105–154; BP diastolic 57–90; PULSE 81–95; RESP 16–22; TEMP 36.3–36.8; O2SAT 93–100; BMI 15.6
--- NOTE | ~2020-03-09 | CT_ITS ---
EXAMINATION: CT brain wo con DATE: 03/09/2020 21:06 INDICATION: Syncope. Confusion. TECHNIQUE: Computed tomography (CT) of the head was performed without intravenous contrast. The dose- length product was 605.33 mGy-cm. The mA was adjusted according to patient size. Iterative reconstruc tion technique was employed. COMPARISON: CT dated 12/24/2019 FINDINGS: No acute intracranial hemorrhage, infarction, mass or mass effect. Generalized atrophy. The re are scattered severe periventricular and subcortical white matter changes, most likely related to small vessel ischemic disease (microangiopathy). No ventriculomegaly or midline shift. There is intra cranial atherosclerosis. No significant abnormality of the paranasal sinuses or mastoids. No depresse d skull fractures. IMPRESSION: 1. No acute intracranial abnormality. 2: Chronic age-related findings. Reviewed, dictated and finalized at location A. INJECTOR AND APPLICATOR
--- NOTE | ~2020-03-09 | CT_ITS ---
EXAMINATION: CT abdomen pelvis wo con DATE: 03/09/2020 15:03 INDICATION: Left lower quadrant pain. Patient confused. TECHNIQUE: Computed tomography (CT) of the abdomen and pelvis was performed without intravenous contr ast. The dose-length product was 266.92 mGy-cm. Automated exposure control and iterative reconstructi on technique were employed. COMPARISON: Ultrasound abdomen dated 07/04/2018. FINDINGS: Calcified granuloma right lower lung zone. Heart size normal. No significant pleural or per icardial effusion. Small hiatal hernia. Moderate diffuse atherosclerosis. No aneurysm. No lymphadenop athy. There is soft tissue gas involving the gluteal folds extending anteriorly into the perineum, concerni ng for Zaria gangrene. Nonobstructive bowel gas pattern. The liver, spleen, pancreas, adrenal glands and kidneys are unremar kable. IMPRESSION: 1. 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 Dr. Cerna discussed with Dr. Nito Coe MD at 03/09/2020 15:15 JUNIOR PHP DEVELOPER. Reviewed, dictated and finalized at location A. OR PHP DEVELOPER IMPRESSION: 1. 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 Dr. Cerna discussed with Dr. Nito Coe MD at 03/09/2020 15:15 JUNIOR PHP DEVELOPER.
--- NOTE | 2020-03-09 14:15 | ECG_ITS ---
Measurements Intervals [place] Rate: 92 P: 78 TX: 157 QRS: 65 QRSD: 85 T: 86 QT: 370 QTc: 458 Interpretive Statements SINUS RHYTHM BORDERLINE ST-T WAVE ABNORMALITY- DIFFUSE LEADS BORDERLINE ECG Electronically Signed On 03-09-2020 15:08:22 [facility] by Del Dill D.O.
--- NOTE | 2020-03-09 14:18 | ED.SYNCOPE ---
HPI - Syncope General Chief Complaint: Syncope Stated Complaint: syncopal episode Time Seen by Provider: 03/09/20 14:17 History of Present Illness HPI narrative: 79 yo female w/ h/o dementia brought in by EMS from her long-term for low blood pressure. She was reportedly in-and-out of consciousness this morning. The patient is not able to provide any history, but says that she that she feels sick. History limited by dementia. Related Data Home Medications Medication Instructions Recorded Confirmed lisinopril 20 mg PO DAILY 10/23/19 03/09/20 bupropion HCl 75 mg PO DAILY 12/26/19 03/09/20 buspirone 5 mg PO TID PRN 03/09/20 03/09/20 Allergies Allergy/AdvReac Type Severity Reaction Status Date / Time No Known Allergies Allergy Unknown Verified 03/09/20 14:13 Review of Systems Review of Systems: ROS unobtainable: Yes unobtainable due to mental status PMFSH Past Medical History Medical History (Updated 03/09/20 @ 23:43 by Nito Coe MD) Anxiety Asthma Chronic obstructive pulmonary disease Dementia Dementia with behavioral disturbance Depression Essential hypertension Gastroesophageal reflux disease Goiter History of concussion Hypothyroidism Pneumonia Transient ischemic attack Surgical History Surgical History (Updated 03/09/20 @ 20:14 by Lizbeth Abreu PA-C) History of spinal surgery (~1994) History of tubal ligation Family History Family History Mother Diabetes mellitus Congestive heart failure Father Emphysema lung Sibling Heart attack Social History Social History (Updated 03/09/20 @ 20:22 by Lizbeth Abreu PA-C) Social History: The patient lives at [facility]. She is a former smoker and quit 1988. No alcohol or illicit substance use. Daughter Kori Padilla is her healthcare power of mergers and acquisitions attorney and she is listed as a full code. Smoking status: Former smoker Tobacco type: cigarettes Smoking end date: 03/14/88 Alcohol intake: never Substance use: never Substance use type: does not use Gender identity (if verbalized by the patient): Female Spiritual care concerns: No Agree to blood products: Yes Exam Const: General: no acute distress and alert Nutritional Appearance: thin Orientation/consciousness: patient oriented x3 HENMT: Mouth: Yes dry mucous membranes Eyes: Pupils: Equal, round and reactive pupils present Neck: Neck: normal visual inspection Resp: Effort & Inspection: normal respiratory effort Auscultation: clear to auscultation bilaterally Cardio: Rate: regular rate Rhythm: regular rhythm GI: Inspection: non-distended Other: LLQ tenderness. No rebound or guarding. Skin: Other: vesicular rash in L5 dermatome Neuro: General: moves all extremities and CN's II-XI intact bilaterally Speech: normal speech Other: oriented to self Extrem: General: no edema Course Vital Signs Vital signs: Vital Signs Temperature 36.3 C L 03/09/20 14:05 Pulse Rate 95 03/09/20 14:05 Respiratory Rate 20 03/09/20 14:05 Blood Pressure 117/88 03/09/20 14:05 Pulse Oximetry 99 03/09/20 14:05 Temperature 36.8 C 03/09/20 19:07 Pulse Rate 87 03/09/20 20:00 Respiratory Rate 16 03/09/20 19:07 Blood Pressure 133/71 03/09/20 19:40 Pulse Oximetry 100 03/09/20 19:07 MDM - Syncope Differential Diagnosis Differential diagnosis: Likely dehydration and other (shingles, diverticulitis, constipation, UTI) Medical Records Attestation: I reviewed the patient's medical records. Lab Data Attestation: I reviewed the patient's lab results. Result diagrams: 03/09/20 14:31 03/09/20 14:32 Labs: Lab Results 03/09/20 03/09/20 03/09/20 Range/Units 14:31 14:32 14:46 WBC 11.5 H (4.5-10.0) K/mm3 RBC 4.37 (4.2-5.4) M/mm3 Hgb 14.6 (12.0-15.0) g/dL Hct 43.7 (37.0-47.0) % MCV 100.0 (80-100) fl [facility]
[2020-03-09 14:37] LABS: Basophils Absolute Auto 0.1 K/mm3 (0.0-0.1); Basophils Percent Auto 0.6 % (0.2-1.2); Eosinophils Percent Auto 0.1 % (0-4.4); Hematocrit 43.7 % (37.0-47.0); Hemoglobin 14.6 g/dL (12.0-15.0); Immature Granulocyte Absolute 0.06 K/mm3 (0.00-0.031); Immature Granulocyte Percent A 0.5 % (0-0.5); Lymphocytes Absolute Auto 1.47 K/mm3 (0.9-3.2); Lymphocytes Percent Auto 12.8 % (18.3-44.2); Mean Corpuscular HGB Conc 33.4 g/dl (32-36); Mean Corpuscular Hemoglobin 33.4 pg (26-34); Mean Platelet Volume 9.7 fl (7.4-10.4); Monocytes Absolute Auto 0.7 K/mm3 (0.1-0.6); Monocytes Percent Auto 5.7 % (2.6-8.5); Neutrophils Absolute Auto 9.2 K/mm3 (1.3-6.7); Neutrophils Percent Auto 80.3 % (45.5-73.1); Platelet Count Result 293 k/mm3 (150-375); Red Blood Count 4.37 M/mm3 (4.2-5.4); Red Cell Distribution Width 12.1 % (11.5-14.5); White Blood Count 11.5 K/mm3 (4.5-10.0)
[2020-03-09 14:48] LABS: Alanine Aminotransferase 15 U/L (4-35); Albumin Level 4.4 g/dL (3.5-5.1); Alkaline Phosphatase 102 U/L (38-126); Anion Gap 12 mmol/L (8-16); Aspartate Amino Transferase 32 U/L (14-36); Bilirubin,Total 0.7 mg/dL (0.2-1.3); Blood Urea Nitrogen 64 mg/dL (7-17); Calcium 10.5 mg/dL (8.4-10.2); Carbon Dioxide 23 mmol/L (22-30); Chloride 106 mmol/L (98-107); Estimated Glomerular Filt Rate 29; Glucose 148 mg/dL (65-105); Lipase 427 U/L (23-300); Potassium 4.6 mmol/L (3.4-5.0); Sodium 141 mmol/L (137-145)
[2020-03-09] MEDS: SODIUM CHLORIDE 0.9% IV 1,000 ML 999 ML IV CONT (14:54)
[2020-03-09] MEDS: ACYCLOVIR 400 MG TABLET 800 MG PO ×2 (15:06→22:16)
[2020-03-09 15:25] LABS: Add Urine Microscopic? YES; Appearance Urine Clear (Clear); Bacteria Urine 4+ /hpf; Bilirubin Urine Negative (Negative); Blood Urine 1+ (Negative); Color Urine Yellow (Yellow); Glucose Urine UA Negative (Negative); Ketones Urine Trace mg/dL (Negative); Leukocyte Esterase Ur Negative LEU/UL (Negative); Mucus Urine Rare /lpf; Nitrate Urine Negative (Negative); Protein Urine 2+ mg/dL (Negative); Specific Grav Ur 1.019 (1.001-1.035); Squamous Epithelial Cell Urine Occasional /hpf (Few); Urobilinogen Urine Negative mg/dL (<2.0)
--- NOTE | 2020-03-09 16:34 | PC.NURSE ---
UPDATES GIVEN TO NICOLE ASSISTED NURSE
[2020-03-09] MEDS: ONDANSETRON INJ 4 MG/2 ML VIAL IV PUSH (16:58)
--- NOTE | 2020-03-09 18:00 | PM.IMHP ---
H&P: HPI History of Present Illness Date/Time: 03/09/20 18:00 Chief Complaint: Syncope. Narrative: Mireya Zamora is a 79-year-old female with dementia and history of behavioral disturbances, hypertension, hypothyroidism, and COPD who presented to the emergency department earlier today via EMS from [facility] for evaluation of syncope. Given her severe dementia she is not able to provide me with any reliable history and as such a majority of this history is obtained via a review of her electronic medical records. Not long prior to arrival she was having lotion foot on her legs when she apparently lost consciousness and was ?in and out of consciousness for 35 minutes.? Her blood pressure was 80/40 on EMS arrival, which did respond to IV fluids, and has since stabilized. On examination her abdomen was reportedly tender to palpation prompting a CT of the abdomen and pelvis which showed soft tissue gas involving the gluteal folds extending anteriorly into the perineum, concerning for Zaria gangrene. I was contacted by the attending ED physician to admit the patient as on his exam there was no evidence to suggest such and he requested that I come evaluate the patient as well. Both myself and Dr. Gonzalez examined the patient in the emergency department and indeed there were no obvious findings on exam to correlate with the reading of possible Zaria gangrene. Instead she was found to have shingles of the right lower extremity. General surgery was contacted and accepted the patient in consultation for further monitoring. At the time my evaluation she mumbles but does not give any meaningful answers. At baseline she is alert and oriented to self. Review of Systems Review of Systems: Narrative: Unable to be accurately assessed given her current clinical condition as detailed above. [facility] Past Medical History Medical History Anxiety Asthma Chronic obstructive pulmonary disease Dementia Dementia with behavioral disturbance Depression Essential hypertension Gastroesophageal reflux disease Goiter History of concussion Hypothyroidism Pneumonia Transient ischemic attack Surgical History Surgical History (Updated 03/09/20 @ 20:14 by Lizbeth Abreu PA-C) History of spinal surgery (~1994) History of tubal ligation Family History Family History Mother Diabetes mellitus Congestive heart failure Father Emphysema lung Sibling Heart attack Social History Social History (Updated 03/09/20 @ 20:22 by Lizbeth Abreu PA-C) Social History: The patient lives at [facility]. She is a former smoker and quit 1988. No alcohol or illicit substance use. Daughter Kori Padilla is her healthcare power of sports attorney and she is listed as a full code. Smoking status: Former smoker Tobacco type: cigarettes Smoking end date: 03/14/88 Alcohol intake: never Substance use: never Substance use type: does not use Gender identity (if verbalized by the patient): Female Spiritual care concerns: No Agree to blood products: Yes Meds Home Medications and Allergies Home Medications Medication Instructions Recorded Confirmed Type memantine 5 mg tablet 5 mg PO BID #180 tablet 02/27/19 03/09/20 Rx lisinopril 20 mg PO DAILY 10/23/19 03/09/20 History Trelegy Ellipta 1 inhalation INHALATION DAILY 30 10/27/19 03/09/20 Rx Days #28 each albuterol sulfate 1 inhalation INHALATION QID PRN 10/27/19 03/09/20 Rx #8.5 gm levothyroxine 125 mcg tablet 125 mcg PO DAILY #90 tablet 11/08/19 03/09/20 Rx citalopram 40 mg tablet 40 mg PO DAILY #90 tablet 11/12/19 03/09/20 Rx lamotrigine 25 mg chewable 25 mg PO BID #180 each 12/11/19 03/09/20 Rx dispersible tablet bupropion HCl 75 mg PO DAILY 12/26/19 03/09/20 History buspirone 5 mg PO TID PRN 03/09/20 03/09/20 History Allergies Dinh
--- NOTE | 2020-03-09 18:51 | ADMGEN ---
This patient, Mireya Zamora, was admitted to Medical Room 344-01. Patient/family oriented to hospital policies and general routines including ID bracelet, bed and alarms, visiting hours, pain management, procedures, bathroom and other care routines, personal items, smoking policy, room service/diet, and visiting hours. Information on how to activate the Rapid Response Team has been discussed. Patient/Family are encouraged to report perceived risks to care and to ask questions if they do not understand what they are told or what they should do.
[2020-03-09] MEDS: LACTATED RINGERS 1,000 ML 50 ML IV CONT (19:05)
[2020-03-10] VITALS (7 sets, daily range): BP systolic 110–137; BP diastolic 57–95; PULSE 53–86; RESP 14–20; TEMP 36.2–37; O2SAT 91–100; BMI 15.5
[2020-03-10 06:17] LABS: Hematocrit 43.3 % (37.0-47.0); Mean Corpuscular HGB Conc 32.3 g/dl (32-36); Mean Corpuscular Hemoglobin 32.5 pg (26-34); Mean Corpuscular Volume 100.5 fl (80-100); Mean Platelet Volume 10.1 fl (7.4-10.4); Platelet Count Result 289 k/mm3 (150-375); Red Blood Count 4.31 M/mm3 (4.2-5.4); White Blood Count 13.5 K/mm3 (4.5-10.0)
[2020-03-10] MEDS: LEVOTHYROXINE SODIUM 125 MCG TABLET PO (06:19)
[2020-03-10 06:33] LABS: Anion Gap 7 mmol/L (8-16); Blood Urea Nitrogen 57 mg/dL (7-17); Calcium 9.5 mg/dL (8.4-10.2); Carbon Dioxide 30 mmol/L (22-30); Chloride 110 mmol/L (98-107); Estimated CRCL calculation 22 ml/min; Estimated Glomerular Filt Rate 43; Glucose 106 mg/dL (65-105); Lipase 207 U/L (23-300); Magnesium 2.7 mg/dL (1.6-2.3); Potassium 4.7 mmol/L (3.4-5.0); Sodium 147 mmol/L (137-145)
[2020-03-10] MEDS: FLUTICASONE/UMECLIDIN/VILANTER 100-62.5-25 MCG ELLIPTA 1 PUFF INHALATION (08:24)
[2020-03-10] MEDS: ACYCLOVIR 400 MG TABLET 800 MG PO ×5 (08:59→20:06)
[2020-03-10] MEDS: CITALOPRAM HYDROBROMIDE 20 MG TABLET 40 MG PO (08:59)
[2020-03-10] MEDS: MEMANTINE 5 MG TABLET PO ×2 (08:59→15:33)
[2020-03-10] MEDS: lamoTRIgine 25 MG TABLET PO ×2 (08:59→15:33)
[2020-03-10] MEDS: buPROPion HCL 75 MG TABLET PO (08:59)
--- NOTE | 2020-03-10 10:27 | PM.CNGS ---
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 The patient had a bowel movement on the way to CT and had stool in her gluteal folds during the CT scan. After reviewing the CT and examining the patient, there is no evidence of Zaria gangrene. What was mentioned and seen on the CT scan was stool from the bowel movement. She does not have any wounds or abnormalities of the soft tissues of the buttocks/gluteal fold/perineum that are suspicious for Zaria gangrene. Therefore, we will sign off at this point and please let us know if any surgical services are needed in the future. Thank you for allowing us to see the patient in consultation. (2) Shingles rash: Code(s): B02.9 - Zoster without complications Status: Acute Assessment and Plan: Vesicular rash on the right lower extremity, consistent with Shingles. She has been started on acyclovir. Management per the Hospitalist. (3) Bacteriuria: Code(s): R82.71 - Bacteriuria Status: Acute Assessment and Plan: Abnormal urinalysis, urine culture pending. Currently on IV ceftriaxone. Management per the Hospitalist. (4) Acute kidney injury: Code(s): N17.9 - Acute kidney failure, unspecified Status: Acute Assessment and Plan: Creatinine 1.7 on admission and now 1.2 today. Improving with IV fluid hydration. Management per Hospitalist. (5) COPD (chronic obstructive pulmonary disease): Qualifiers: COPD type: unspecified COPD Qualified Code(s): J44.9 - Chronic obstructive pulmonary disease, unspecified Code(s): J44.9 - Chronic obstructive pulmonary disease, unspecified Status: Chronic (6) Essential hypertension: Code(s): I10 - Essential (primary) hypertension Status: Acute (7) Dementia: Code(s): F03.90 - Unspecified dementia without behavioral disturbance Status: Acute Additional Plan Discussed the patient's case and plan of care with Dr. Cast. I also discussed the plan with the Hospitalist. History of Present Illness Consult details Consult date: 03/10/20 Reason for consult: other (Abnormal CT abd/pelvis with findings suggesting Zaria gangrene at the gluteal folds extending anteriorly towards the perineum) Requesting physician: Lizbeth Abreu PA-C Narrative: This is a 79-year-old female with dementia who [facility] pressure and altered mental status. Due to her dementia, she is unable to provide history, and therefore I obtained this through review of her electronic medial record. She apparently had a 35-minute episode of going in and out of consciousness prior to the [facility] calling EMS while she was getting lotion applied to her legs. Upon EMS arrival, her BP was 80/40. Her blood pressure responded well to IV fluids and has since normalized. She was brought to the ER where she had a head CT, which showed no acute intracranial findings. Her abdomen was apparently tender on exam, which resulted in a CT scan of the abdomen and pelvis. 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 Apparently on her way to CT, she had a bowel movement. The ER physician evaluated her buttocks and perineum after cleaning up her stool following the CT and found no evidence of wounds or soft tissue swelling or redness. Urinalysis showed 4+ bacteria, WBC 10-15, 1+ blood, and 2+ protein. Creatinine was 1.7 and is now down to 1.2 with IV fluid hydration.
[2020-03-10] MEDS: OLANZapine 10 MG INJ VIAL 2.5 MG IM (13:58)
--- NOTE | 2020-03-10 14:08 | PCPTNOTE ---
Attempted PT eval. Pt agitated and combative w/ nursing. Will try again at later time.
--- NOTE | 2020-03-10 14:13 | PC.NURSE ---
Patient is becoming aggressive pinching, swinging, and spitting at staff. While on my lunch I heard the screaming and came out to see the patient angrily yelling and trying to hurt staff. Caridad, the charge nurse, was called and she came up to help the situation. We called Dr. Bennett and he gave orders to give 2.5 mg Zyprexa IM one time. With help from Sultana and Caridad I was able to give her the IM injection. Patient is currently in bed with a soda. She continues to scream and remains agitated. Will continue to monitor her. She is directly across from the nurses station with door open, bed alarm on, and curtain open so we can see her easily.
--- NOTE | 2020-03-10 14:45 | PM.IMPN ---
Progress Note: A&P Assessment and Plan (1) Acute kidney injury: Code(s): N17.9 - Acute kidney failure, unspecified Status: Acute (2) Dehydration: Code(s): E86.0 - Dehydration Status: Acute Assessment and Plan: 03/10/20 14:45 Patient is 79-year-old female with a resident of nursing with history of dementia behavioral disturbance patient was somnolent, unconscious and hypotension and her blood pressure was80/40, EMS was called patient was given IV fluid responded well upon arrival to emergency depart patient had a complaint of abdominal pain and CT scan was done this suggested that the patient may have Zaria gangrene though her physical examination was benign, this morning patient was seen by surgery team and re-evaluated CT scan and it was concluded the patient had BM during her CT scan and patient does not have Zaria gangrene as patient is clinically stable does not have any fever and she is nontoxic. Currently patient is stable and cooperative will consult PT OT further recommendation if remains clinically stable will discharge the patient back to long-term tomorrow, later in the afternoon patient had behavior disturbance and patient was given zyprexa 2.5mg IMx1, this helped her calm down. (3) Syncope: Code(s): R55 - Syncope and collapse Status: Acute Assessment and Plan: Most likely secondary to dehydration patient is clinically stable will continue to monitor (4) Elevated lipase: Code(s): R74.8 - Abnormal levels of other serum enzymes Status: Acute (5) Abnormal computed tomography of abdomen and pelvis: Code(s): R93.5 - Abnormal findings on diagnostic imaging of other abdominal regions, including retroperitoneum Status: Acute Assessment and Plan: Patient lipase are back to normal will continue to monitor (6) Shingles rash: Code(s): B02.9 - Zoster without complications Status: Acute Assessment and Plan: This may cause behavioral disturbance and aggravation patient on acyclovir, will apply Lidoderm patchs (7) Bacteriuria: Code(s): R82.71 - Bacteriuria Status: Acute Assessment and Plan: Patient is on Rocephin will follow-up on urine culture and further recommendation to follow (8) Hypothyroidism: Qualifiers: Hypothyroidism type: unspecified Qualified Code(s): E03.9 - Hypothyroidism, unspecified Code(s): E03.9 - Hypothyroidism, unspecified Status: Chronic (9) Dementia: Qualifiers: Dementia behavioral disturbance: with behavioral disturbance Dementia type: unspecified type Qualified Code(s): F03.91 - Unspecified dementia with behavioral disturbance Code(s): F03.90 - Unspecified dementia without behavioral disturbance Status: Chronic Assessment and Plan: Will continue home regimen and monitor (10) Essential hypertension: Code(s): I10 - Essential (primary) hypertension Status: Acute Assessment and Plan: Will continue home regimen and monitor Additional Plan The patient has acute kidney injury, likely pre renal as she appears dry on exam. I also suspect that her syncope is related to dehydration given soft blood pressures which responded to IV fluids. We will cautiously hydrate overnight, hold antihypertensives, and avoid nephrotoxic agents. Repeat renal function in a.m. She will be monitored on telemetry overnight to rule out cardiac dysrhythmia as an etiology for her syncope, which seems less likely. Her lipase was slightly elevated no pancreas was unremarkable on CT. She will be on bowel rest tonight with repeat lipase levels in a.m.. 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 She was examined carefully by myself, Dr. Gonzalez, and the attending ED physician and none of us see any evidence to correlate without finding. Spec
--- NOTE | 2020-03-10 15:41 | PC.NURSE ---
Patient continues to be aggressive and agitated. She is now refusing her PO meds. I will continue to try to get her to take her meds, but she becomes aggressive when I ask her.
[2020-03-10] MEDS: LACTATED RINGERS 1,000 ML 50 ML IV CONT (18:39)
[2020-03-10] MEDS: busPIRone HCL 5 MG TABLET PO (20:06)
[2020-03-10] MEDS: OLANZapine 10 MG INJ VIAL 5 MG IM (20:38)
[2020-03-11 05:37] LABS: Basophils Absolute Auto 0.1 K/mm3 (0.0-0.1); Basophils Percent Auto 0.6 % (0.2-1.2); Eosinophils Absolute Auto 0.1 K/mm3 (0-0.3); Hematocrit 38.4 % (37.0-47.0); Hemoglobin 12.9 g/dL (12.0-15.0); Immature Granulocyte Absolute 0.03 K/mm3 (0.00-0.031); Immature Granulocyte Percent A 0.3 % (0-0.5); Lymphocytes Absolute Auto 2.76 K/mm3 (0.9-3.2); Lymphocytes Percent Auto 27.3 % (18.3-44.2); Mean Corpuscular HGB Conc 33.6 g/dl (32-36); Mean Corpuscular Hemoglobin 32.8 pg (26-34); Mean Corpuscular Volume 97.7 fl (80-100); Mean Platelet Volume 9.9 fl (7.4-10.4); Monocytes Absolute Auto 0.6 K/mm3 (0.1-0.6); Monocytes Percent Auto 5.7 % (2.6-8.5); Neutrophils Absolute Auto 6.6 K/mm3 (1.3-6.7); Neutrophils Percent Auto 65.1 % (45.5-73.1); Platelet Count Result 247 k/mm3 (150-375); Red Blood Count 3.93 M/mm3 (4.2-5.4); Red Cell Distribution Width 11.8 % (11.5-14.5); White Blood Count 10.1 K/mm3 (4.5-10.0)
[2020-03-11 05:59] LABS: Alanine Aminotransferase 11 U/L (4-35); Albumin Level 3.6 g/dL (3.5-5.1); Alkaline Phosphatase 78 U/L (38-126); Anion Gap 4 mmol/L (8-16); Aspartate Amino Transferase 29 U/L (14-36); Bilirubin,Total 0.7 mg/dL (0.2-1.3); Blood Urea Nitrogen 26 mg/dL (7-17); Calcium 9.2 mg/dL (8.4-10.2); Carbon Dioxide 29 mmol/L (22-30); Chloride 106 mmol/L (98-107); Estimated CRCL calculation 29 ml/min; Estimated Glomerular Filt Rate 60; Glucose 99 mg/dL (65-105); Potassium 4.1 mmol/L (3.4-5.0); Sodium 139 mmol/L (137-145)
[2020-03-11] MEDS: LACTATED RINGERS 1,000 ML 80 ML IV CONT ×2 (06:45→19:50)
[2020-03-11] MEDS: buPROPion HCL 75 MG TABLET PO (09:27)
[2020-03-11] MEDS: ACYCLOVIR 400 MG TABLET 800 MG PO ×5 (09:27→21:48)
[2020-03-11] MEDS: CITALOPRAM HYDROBROMIDE 20 MG TABLET 40 MG PO (09:27)
[2020-03-11] MEDS: MEMANTINE 5 MG TABLET PO ×2 (09:27→16:16)
[2020-03-11] MEDS: lamoTRIgine 25 MG TABLET PO ×2 (09:27→16:16)
[2020-03-11] MEDS: FLUTICASONE/UMECLIDIN/VILANTER 100-62.5-25 MCG ELLIPTA 1 PUFF INHALATION (09:27)
[2020-03-11] MEDS: OLANZapine 10 MG INJ VIAL 5 MG IM (11:56)
[2020-03-11] MEDS: WATER, STERILE FOR INJECTION 10 ML VIAL XX (11:59)
--- NOTE | 2020-03-11 12:09 | PC.NURSE ---
Pt had become very belligerent again. Pt trying to get out of bed. Intetionally started urinating and dedicating on the floor. Pt started screaming, hitting, and kicking at us as we were trying to help clean her up and get back in bed. Dr. Bennett was called orders placed for IM 5mg zyprexa.
--- NOTE | 2020-03-11 16:18 | PM.IMPN ---
Progress Note: A&P Assessment and Plan (1) Acute kidney injury: Code(s): N17.9 - Acute kidney failure, unspecified Status: Acute (2) Dehydration: Code(s): E86.0 - Dehydration Status: Acute Assessment and Plan: 03/11/20 16:18 Patient is 79-year-old female with a resident of nursing with history of dementia behavioral disturbance patient was somnolent, unconscious and hypotension and her blood pressure was80/40, EMS was called patient was given IV fluid responded well upon arrival to emergency depart patient had a complaint of abdominal pain and CT scan was done this suggested that the patient may have Zaria gangrene though her physical examination was benign, this morning patient was seen by surgery team and re-evaluated CT scan and it was concluded the patient had BM during her CT scan and patient does not have Zaria gangrene as patient is clinically stable does not have any fever and she is nontoxic. Currently patient is stable and cooperative will consult PT OT further recommendation, later in the afternoon on 03/10 patient had behavior disturbance and patient was given zyprexa 2.5mg IMx1, this helped her calm down. today again patient was agitated and not cooperative and was given zyprexa 2.5mg IM x1. Will start the patient on Seroquel and the bedtime will continue to monitor, [facility] (3) Syncope: Code(s): R55 - Syncope and collapse Status: Acute Assessment and Plan: Most likely secondary to dehydration patient is clinically stable will continue to monitor (4) Elevated lipase: Code(s): R74.8 - Abnormal levels of other serum enzymes Status: Acute (5) Abnormal computed tomography of abdomen and pelvis: Code(s): R93.5 - Abnormal findings on diagnostic imaging of other abdominal regions, including retroperitoneum Status: Acute Assessment and Plan: Patient lipase are back to normal will continue to monitor (6) Shingles rash: Code(s): B02.9 - Zoster without complications Status: Acute Assessment and Plan: This may cause behavioral disturbance and aggravation patient on acyclovir, will apply Lidoderm patchs (7) Bacteriuria: Code(s): R82.71 - Bacteriuria Status: Acute Assessment and Plan: Patient is on Rocephin will follow-up on urine culture and further recommendation to follow (8) Hypothyroidism: Qualifiers: Hypothyroidism type: unspecified Qualified Code(s): E03.9 - Hypothyroidism, unspecified Code(s): E03.9 - Hypothyroidism, unspecified Status: Chronic (9) Dementia: Qualifiers: Dementia type: unspecified type Dementia behavioral disturbance: with behavioral disturbance Qualified Code(s): F03.91 - Unspecified dementia with behavioral disturbance Code(s): F03.90 - Unspecified dementia without behavioral disturbance Status: Chronic Assessment and Plan: Will continue home regimen and monitor (10) Essential hypertension: Code(s): I10 - Essential (primary) hypertension Status: Acute Assessment and Plan: Will continue home regimen and monitor Additional Plan The patient has acute kidney injury, likely pre renal as she appears dry on exam. I also suspect that her syncope is related to dehydration given soft blood pressures which responded to IV fluids. We will cautiously hydrate overnight, hold antihypertensives, and avoid nephrotoxic agents. Repeat renal function in a.m. She will be monitored on telemetry overnight to rule out cardiac dysrhythmia as an etiology for her syncope, which seems less likely. Her lipase was slightly elevated no pancreas was unremarkable on CT. She will be on bowel rest tonight with repeat lipase levels in a.m.. 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 She wa
[2020-03-11 18:44] LABS: SARS-CoV-2 RNA PCR Negative
[2020-03-12] MEDS: busPIRone HCL 5 MG TABLET PO (02:07)
[2020-03-12 05:57] LABS: Basophils Percent Auto 0.4 % (0.2-1.2); Eosinophils Absolute Auto 0.1 K/mm3 (0-0.3); Eosinophils Percent Auto 1.3 % (0-4.4); Hematocrit 38.8 % (37.0-47.0); Hemoglobin 12.9 g/dL (12.0-15.0); Immature Granulocyte Absolute 0.03 K/mm3 (0.00-0.031); Immature Granulocyte Percent A 0.3 % (0-0.5); Lymphocytes Absolute Auto 2.53 K/mm3 (0.9-3.2); Lymphocytes Percent Auto 25.6 % (18.3-44.2); Mean Corpuscular HGB Conc 33.2 g/dl (32-36); Mean Corpuscular Hemoglobin 32.3 pg (26-34); Mean Platelet Volume 9.6 fl (7.4-10.4); Monocytes Absolute Auto 0.8 K/mm3 (0.1-0.6); Monocytes Percent Auto 7.9 % (2.6-8.5); Neutrophils Absolute Auto 6.4 K/mm3 (1.3-6.7); Neutrophils Percent Auto 64.5 % (45.5-73.1); Platelet Count Result 256 k/mm3 (150-375); Red Cell Distribution Width 11.6 % (11.5-14.5); White Blood Count 9.9 K/mm3 (4.5-10.0)
[2020-03-12 06:19] LABS: Alanine Aminotransferase 11 U/L (4-35); Albumin Level 3.5 g/dL (3.5-5.1); Alkaline Phosphatase 76 U/L (38-126); Anion Gap 4 mmol/L (8-16); Aspartate Amino Transferase 27 U/L (14-36); Bilirubin,Total 0.6 mg/dL (0.2-1.3); Blood Urea Nitrogen 11 mg/dL (7-17); Carbon Dioxide 31 mmol/L (22-30); Chloride 103 mmol/L (98-107); Estimated CRCL calculation 42 ml/min; Estimated Glomerular Filt Rate > 60; Glucose 98 mg/dL (65-105); Potassium 3.8 mmol/L (3.4-5.0); Sodium 138 mmol/L (137-145)
[2020-03-12] MEDS: LEVOTHYROXINE SODIUM 125 MCG TABLET PO (06:24)
[2020-03-12 06:50] VITALS: BP 148/70; PULSE 64; RESP 16; TEMP 36.6; O2SAT 99
[2020-03-12] MEDS: ACYCLOVIR 400 MG TABLET 800 MG PO (09:50)
[2020-03-12] MEDS: lamoTRIgine 25 MG TABLET PO (09:50)
[2020-03-12] MEDS: MEMANTINE 5 MG TABLET PO (09:51)
[2020-03-12] MEDS: FLUTICASONE/UMECLIDIN/VILANTER 100-62.5-25 MCG ELLIPTA 1 PUFF INHALATION (09:51)
[2020-03-12] MEDS: buPROPion HCL 75 MG TABLET PO (09:51)
[2020-03-12] MEDS: CITALOPRAM HYDROBROMIDE 20 MG TABLET 40 MG PO (09:51)
--- NOTE | 2020-03-12 10:29 | PM.DS ---
DS: Admitting Diagnosis Admitting Diagnosis Admitting Diagnosis: Syncope DS: Discharge Diagnosis Discharge Diagnosis (1) Acute kidney injury: Code(s): N17.9 - Acute kidney failure, unspecified Status: Acute (2) Dehydration: Code(s): E86.0 - Dehydration Status: Acute Assessment and Plan: 03/11/20 16:18 Patient is 79-year-old female with a resident of nursing with history of dementia behavioral disturbance patient was somnolent, unconscious and hypotension and her blood pressure was80/40, EMS was called patient was given IV fluid responded well upon arrival to emergency depart patient had a complaint of abdominal pain and CT scan was done this suggested that the patient may have Zaria gangrene though her physical examination was benign, this morning patient was seen by surgery team and re-evaluated CT scan and it was concluded the patient had BM during her CT scan and patient does not have Zaria gangrene as patient is clinically stable does not have any fever and she is nontoxic. Currently patient is stable and cooperative will consult PT OT further recommendation, later in the afternoon on 03/10 patient had behavior disturbance and patient was given zyprexa 2.5mg IMx1, this helped her calm down. today again patient was agitated and not cooperative and was given zyprexa 2.5mg IM x1. Will start the patient on Seroquel and the bedtime will continue to monitor, will discharge the patient tomorrow to skilled nursing. (3) Syncope: Code(s): R55 - Syncope and collapse Status: Acute Assessment and Plan: Most likely secondary to dehydration patient is clinically stable will continue to monitor (4) Elevated lipase: Code(s): R74.8 - Abnormal levels of other serum enzymes Status: Acute (5) Abnormal computed tomography of abdomen and pelvis: Code(s): R93.5 - Abnormal findings on diagnostic imaging of other abdominal regions, including retroperitoneum Status: Acute Assessment and Plan: Patient lipase are back to normal will continue to monitor (6) Shingles rash: Code(s): B02.9 - Zoster without complications Status: Acute Assessment and Plan: This may cause behavioral disturbance and aggravation patient on acyclovir, will apply Lidoderm patchs (7) Bacteriuria: Code(s): R82.71 - Bacteriuria Status: Acute Assessment and Plan: Patient is on Rocephin will follow-up on urine culture and further recommendation to follow (8) Hypothyroidism: Qualifiers: Hypothyroidism type: unspecified Qualified Code(s): E03.9 - Hypothyroidism, unspecified Code(s): E03.9 - Hypothyroidism, unspecified Status: Chronic (9) Dementia: Qualifiers: Dementia type: unspecified type Dementia behavioral disturbance: with behavioral disturbance Qualified Code(s): F03.91 - Unspecified dementia with behavioral disturbance Code(s): F03.90 - Unspecified dementia without behavioral disturbance Status: Chronic Assessment and Plan: Will continue home regimen and monitor (10) Essential hypertension: Code(s): I10 - Essential (primary) hypertension Status: Acute Assessment and Plan: Will continue home regimen and monitor DS: Summary Hospital Course Reason for hospitalization: Chief Complaint: Syncope. Narrative: Mireya Zamora is a 79-year-old female with dementia and history of behavioral disturbances, hypertension, hypothyroidism, and COPD who presented to the emergency department earlier today via EMS from [facility] for evaluation of syncope. Given her severe dementia she is not able to provide me with any reliable history and as such a majority of this history is obtained via a review of her electronic medical records. Not long prior to arrival she was having lotion foot on her legs when she apparently lost consciousness and was ?in and out of consciousness for 3
--- NOTE | 2020-03-12 10:47 | PC.NURSE ---
Report has been given to Briana at [facility]. Ambulance has been called to turkey picker patient. IV has been removed. Patient belongings are packed.
== END 2020-03-12 13:53 ==
LOC: ANHED 17:57 → ANH3MED 23:43
PROVIDERS: Emergency Medicine; Physician Assistant; Student in an Organized Health Care Education/Training Program; Admitting Provider Internal Medicine; Emergency Provider Emergency Medicine; PCP Family Medicine; Visit Provider Family Medicine
DX: N17.9 Acute kidney failure, unspecified (principal); E86.0 Dehydration; Z20.828 Contact with and (suspected) exposure to other viral communicable diseases; R55 Syncope and collapse; B02.9 Zoster without complications; R82.71 Bacteriuria; R93.5 Abnormal findings on diagnostic imaging of other abdominal regions, including retroperitoneum; E03.9 Hypothyroidism, unspecified; F03.91 Unspecified dementia, unspecified severity, with behavioral disturbance; I10 Essential (primary) hypertension; J44.9 Chronic obstructive pulmonary disease, unspecified; R74.8 Abnormal levels of other serum enzymes; Z86.73 Personal history of transient ischemic attack (TIA), and cerebral infarction without residual deficits; Z87.891 Personal history of nicotine dependence
CPT/HCPCS: 36415; 51701; 70450; 74176; 80048; 80053; 81001; 83605; 83690; 83735; 84439; 84443; 85025; 85027; 87040; 87086; 87635; 93005; 94640; 96361; 96365; 96372; 96375; 97161; 97165; 99285; A9270; C9803; G0378; J0696; J2405; J7030; J7120; U0003

== ENCOUNTER 2021-01-22 18:57 | Inpatient (IN) | payer MEDICARE, MEDICAID, SELFPAY ==
[2021-01-22] VITALS (11 sets, daily range): BP systolic 115–149; BP diastolic 45–78; PULSE 65–114; RESP 16–23; TEMP 36.4–36.6; O2SAT 92–100; BMI 19.5
--- NOTE | 2021-01-22 19:38 | ECG_ITS ---
Measurements Intervals [place] Rate: 76 P: 70 SD: 140 QRS: 42 QRSD: 90 T: 80 QT: 384 QTc: 433 Interpretive Statements SINUS RHYTHM SUPRAVENTRICULAR BIGEMINY AND ATRIAL PREMATURE COMPLEX CANNOT RULE OUT SEPTAL INFARCT, AGE INDETERMINATE BORDERLINE ST-T WAVE ABNORMALITY- ANT/HIGH LAT LEADS BASELINE ARTIFACT- I, II, III, AVR, AVF, V3-V6 ABNORMAL ECG Electronically Signed On 01-22-2021 19:57:51 MARINE SERVICE STATION ATTENDANT by Del Dill D.O.
[2021-01-22 19:49] LABS: Basophils Percent Auto 0.6 % (0.2-1.2); Eosinophils Absolute Auto 0.3 K/mm3 (0-0.3); Eosinophils Percent Auto 4.7 % (0-4.4); Immature Granulocyte Absolute 0.03 K/mm3 (0.00-0.031); Immature Granulocyte Percent A 0.4 % (0-0.5); Lymphocytes Absolute Auto 2.13 K/mm3 (0.9-3.2); Lymphocytes Percent Auto 30.3 % (18.3-44.2); Mean Corpuscular HGB Conc 28.4 g/dl (32-36); Mean Platelet Volume 9.6 fl (7.4-10.4); Monocytes Absolute Auto 0.9 K/mm3 (0.1-0.6); Monocytes Percent Auto 12.2 % (2.6-8.5); Neutrophils Absolute Auto 3.6 K/mm3 (1.3-6.7); Neutrophils Percent Auto 51.8 % (45.5-73.1); Platelet Count Result 371 k/mm3 (150-375); Red Cell Distribution Width 16.3 % (11.5-14.5)
[2021-01-22 20:02] LABS: Alanine Aminotransferase 9 U/L (4-35); Albumin Level 3.5 g/dL (3.5-5.1); Alkaline Phosphatase 95 U/L (38-126); Anion Gap 6 mmol/L (8-16); Aspartate Amino Transferase 20 U/L (14-36); Bilirubin,Total 0.2 mg/dL (0.2-1.3); Blood Urea Nitrogen 16 mg/dL (7-17); Carbon Dioxide 26 mmol/L (22-30); Chloride 109 mmol/L (98-107); Estimated Glomerular Filt Rate > 60; Glucose 98 mg/dL (65-110); Potassium 4.1 mmol/L (3.4-5.0); Sodium 141 mmol/L (137-145)
[2021-01-22 20:08] LABS: Hemoglobin 5.4 g/dL (12.0-15.0)
--- NOTE | 2021-01-22 20:51 | ED.RECABL ---
HPI - Recheck/Abnormal Lab/Rx General Chief Complaint: Recheck/Abnormal Lab/Rx Stated Complaint: hgb 4.7 per NH staff Time Seen by Provider: 01/22/21 19:49 Source: RN notes reviewed, old records reviewed and other ([facility]) History of Present Illness HPI narrative: Patient evaluated by her primary care physician today was getting routine blood drawn labs returned with a hemoglobin of 4.7 she was referred to the ER for evaluation. Patient does not have any complaints at this time. Last hemoglobin that is fairly has on record was in October and had a hemoglobin of 10. Patient does not carry any prior history of GI bleeds she does not use any blood thinners or NSAIDs Related Data Home Medications Medication Instructions Recorded Confirmed lisinopril 20 mg PO DAILY 10/23/19 03/09/20 bupropion HCl 75 mg PO DAILY 12/26/19 03/09/20 buspirone 5 mg PO TID PRN 03/09/20 03/09/20 Allergies Allergy/AdvReac Type Severity Reaction Status Date / Time No Known Allergies Allergy Unknown Verified 03/09/20 14:13 Review of Systems Review of Systems: CONSTITUTIONAL: Denies fever, chills, or sweats. EYES: Denies visual changes, redness, or discharge. ENT: Denies rhinorrhea, congestion, sore throat, or otalgia. CARDIOVASCULAR: Denies chest pain, palpitations, or edema. RESPIRATORY: Denies cough or dyspnea. GASTROINTESTINAL: Denies abdominal pain, nausea, vomiting, or diarrhea. GENITOURINARY: Denies dysuria or hematuria. SKIN: Denies rash or itching. MUSCULOSKELETAL: Denies back pain, joint pain, or myalgia. NEUROLOGIC: Denies headache, numbness, dizziness, or weakness. PSYCHIATRIC: Denies anxiety or depression. All systems reviewed & are unremarkable except as noted in HPI and below PMFSH Past Medical History Medical History Anxiety Asthma Chronic obstructive pulmonary disease Dementia Dementia with behavioral disturbance Depression Essential hypertension Gastroesophageal reflux disease Goiter History of concussion Hypothyroidism Pneumonia Transient ischemic attack Surgical History Surgical History History of spinal surgery (~1994) History of tubal ligation Family History Family History Mother Diabetes mellitus Congestive heart failure Father Emphysema lung Sibling Heart attack Social History Social History Social History: The patient lives at [facility]. She is a former smoker and quit 1988. No alcohol or illicit substance use. Daughter Kori Padilla is her healthcare power of rn plasma center and she is listed as a full code. Smoking status: Former smoker Tobacco type: cigarettes Smoking end date: 03/14/88 Alcohol intake: never Substance use: never Substance use type: does not use Gender identity (if verbalized by the patient): Female Sexual Orientation (if Verbalized by the Patient): Straight or Heterosexual Spiritual care concerns: No Agree to blood products: Yes Exam Narrative: GENERAL: Well-appearing, well-nourished, and in no acute distress. HEAD: Normocephalic, atraumatic. EYES: PERRLA and EOMI. ENT: Nares clear, no rhinorrhea or epistaxis. Mucous membranes moist. NECK: Supple. No masses. No JVD CHEST: Clear to auscultation. No respiratory distress. No wheezes rales or rhonchi HEART: Regular rate and rhythm. No murmur heard. Normal peripheral pulses. ABDOMEN: Soft, nontender, nondistended, normal active bowel sounds. EXTREMITIES: Normal range of motion. No edema. REctal: No obvious bleeding no focal areas of tenderness no melena Hemoccult was positive SKIN: Warm, dry, no rash. NEURO: No focal deficits. Alert and oriented x 2 PSYCH: Normal mood and affect. Course Consultations Consultation #1: Case discussed with GI who is happy to foll
--- NOTE | 2021-01-22 21:39 | PM.IMHP ---
H&P: HPI History of Present Illness Date/Time: 01/22/21 21:39 Chief Complaint: Abnormal lab value Narrative: This is an 80-year-old female pleasantly demented past medical history significant for hypothyroidism, dementia, hypertension, COPD/emphysema generalized anxiety, gastroesophageal reflux disease. [facility] she was brought in today after regular checkup labs showed a decreased hemoglobin. Patient is unable to give any history she is demented. Preliminary workup was significant for a hemoglobin of 5.4 hematocrit of 19 MCV 95 as per history no signs of bleed no hematochezia, no melena, no hematemesis. Prior values hemoglobin 12.9 and hematocrit of 38.8 creatinine 0.8 BUN is 16 in current lab work. Review of Systems Review of Systems: ROS unobtainable: Yes unobtainable due to mental status (Dementia) [facility] Past Medical History Medical History (Updated 01/23/21 @ 01:26 by Gabriella Augustine MD) Anxiety Asthma Chronic obstructive pulmonary disease Dementia Dementia with behavioral disturbance Depression Essential hypertension Gastroesophageal reflux disease Goiter History of concussion Hypothyroidism Pneumonia Transient ischemic attack Surgical History Surgical History History of spinal surgery (~1994) History of tubal ligation Family History Family History Mother Diabetes mellitus Congestive heart failure Father Emphysema lung Sibling Heart attack Social History Social History Social History: The patient lives at [facility]. She is a former smoker and quit 1988. No alcohol or illicit substance use. Daughter Kori Padilla is her healthcare power of contracts attorney and she is listed as a full code. Smoking status: Former smoker Tobacco type: cigarettes Smoking end date: 03/14/88 Alcohol intake: unknown Substance use: unknown Substance use type: does not use Gender identity (if verbalized by the patient): Female Sexual Orientation (if Verbalized by the Patient): Straight or Heterosexual Spiritual care concerns: No Agree to blood products: Yes Meds Home Medications and Allergies Home Medications Medication Instructions Recorded Confirmed Type memantine 5 mg tablet 5 mg PO BID #180 tablet 02/27/19 01/22/21 Rx lisinopril 20 mg PO DAILY 10/23/19 01/22/21 History Trelegy Ellipta 1 inhalation INHALATION DAILY 30 10/27/19 01/22/21 Rx Days #28 each citalopram 40 mg tablet 40 mg PO DAILY #90 tablet 11/12/19 01/22/21 Rx lamotrigine 25 mg chewable 25 mg PO BID #180 each 12/11/19 01/22/21 Rx dispersible tablet bupropion HCl 75 mg PO DAILY 12/26/19 01/22/21 History buspirone 5 mg PO QPM 03/09/20 01/22/21 History olanzapine 5 mg PO HS #30 tablet 03/12/20 01/22/21 Rx albuterol sulfate 1 puff INHALATION QID PRN 01/22/21 01/22/21 History cholecalciferol (vitamin D3) 75 mcg PO DAILY 01/22/21 01/22/21 History levothyroxine 150 mcg PO DAILY 01/22/21 01/22/21 History lidocaine HCl [Aspercreme 1 applic TOPICAL BID 01/22/21 01/22/21 History (lidocaine HCl)] polyethylene glycol 3350 [Miralax] 17 g PO HS 01/22/21 01/22/21 History Allergies Allergy/AdvReac Type Severity Reaction Status Date / Time No Known Allergies Allergy Unknown Verified 03/09/20 14:13 Vital Signs Vital Signs - 24 hr 01/22/21 19:13 01/22/21 20:04 01/22/21 20:56 Temperature Pulse Rate 65 68 71 Respiratory Rate 16 23 H 19 Blood Pressure 129/57 L 115/45 L 125/70 Pulse Oximetry 99 99 99 01/22/21 21:35 Temperature 97.8 F Pulse Rate 71 Respiratory Rate 20 Blood Pressure 149/78 H Pulse Oximetry 98 Exam Narrative: Laying in jaida Const: General: comfortable, no acute distress, well developed, alert and awake Nutritional Appearance: thin Orientation/consciousness: oriented to person HENMT: Head:
[2021-01-22] MEDS: SODIUM CHLORIDE 0.9% IV 250 ML 30 ML IV CONT (21:53)
[2021-01-22] MEDS: TUBING, BLOOD PLUM PUMP TUBING 1 EACH XX (21:54)
--- NOTE | 2021-01-22 22:34 | PC.NURSE ---
Pt restless on stretcher, stating she needs to go home. VSS at this time.
--- NOTE | 2021-01-22 23:12 | ADMGEN ---
This patient, Mireya Zamora, was admitted to Medical Room 255-01. Patient/family oriented to hospital policies and general routines including ID bracelet, bed and alarms, visiting hours, pain management, procedures, bathroom and other care routines, personal items, smoking policy, room service/diet, and visiting hours. Information on how to activate the Rapid Response Team has been discussed. Patient/Family are encouraged to report perceived risks to care and to ask questions if they do not understand what they are told or what they should do.
[2021-01-23] VITALS (21 sets, daily range): BP systolic 100–183; BP diastolic 50–98; PULSE 54–79; RESP 16–28; TEMP 36–36.9; O2SAT 94–100
--- NOTE | 2021-01-23 07:20 | WPDGICN ---
Assessment and Plan Assessment and plan (1) Anemia: Qualifiers: Anemia type: unspecified type Qualified Code(s): D64.9 - Anemia, unspecified Code(s): D64.9 - Anemia, unspecified Status: Acute Assessment and Plan: she has profound anemia but no evidence of gastrointestinal bleeding. BUN is within normal range. We will schedule her for EGD to be done today. If that is unremarkable then I will try to prep her for colonoscopy to be done in the morning. (2) Blood in stool: Code(s): K92.1 - Melena Status: Acute Assessment and Plan: Stool Hemoccult done emergency room was positive GI Consult Note Consult date/time: 01/23/21 07:20 HPI: Mireya Zamora is a 80 year old female who was brought to the emergency room yesterday from [facility]. She had routine blood work drawn by her attending physician and hemoglobin was found to be 4.7. Here emergency room it is a little higher, 5.3. There has been no evidence of gastrointestinal bleeding no sign of hematemesis. The last hemoglobin we have a year ago was 12.9. She is not anticoagulated as far as we know not on any NSAIDs. She cannot give a history because of her mental status. But I obtained was from the emergency room physician and records in the chart Review of Systems Review of Systems: All systems reviewed & are unremarkable except as noted in HPI and below PMFSH Past Medical History Medical History Anxiety Asthma Chronic obstructive pulmonary disease Dementia Dementia with behavioral disturbance Depression Essential hypertension Gastroesophageal reflux disease Goiter History of concussion Hypothyroidism Pneumonia Transient ischemic attack Surgical History Surgical History History of spinal surgery (~1994) History of tubal ligation Family History Family History Mother Diabetes mellitus Congestive heart failure Father Emphysema lung Sibling Heart attack Social History Social History Social History: The patient lives at [facility]. She is a former smoker and quit 1988. No alcohol or illicit substance use. Daughter Kori Padilla is her healthcare power of contract attorney and she is listed as a full code. Smoking status: Former smoker Tobacco type: cigarettes Smoking end date: 03/14/88 Alcohol intake: unknown Substance use: unknown Substance use type: does not use Gender identity (if verbalized by the patient): Female Sexual Orientation (if Verbalized by the Patient): Straight or Heterosexual Spiritual care concerns: No Agree to blood products: Yes Meds Home Medications and Allergies Home Medications Medication Instructions Recorded Confirmed Type memantine 5 mg tablet 5 mg PO BID #180 tablet 02/27/19 01/22/21 Rx lisinopril 20 mg PO DAILY 10/23/19 01/22/21 History Trelegy Ellipta 1 inhalation INHALATION DAILY 30 10/27/19 01/22/21 Rx Days #28 each citalopram 40 mg tablet 40 mg PO DAILY #90 tablet 11/12/19 01/22/21 Rx lamotrigine 25 mg chewable 25 mg PO BID #180 each 12/11/19 01/22/21 Rx dispersible tablet bupropion HCl 75 mg PO DAILY 12/26/19 01/22/21 History buspirone 5 mg PO QPM 03/09/20 01/22/21 History olanzapine 5 mg PO HS #30 tablet 03/12/20 01/22/21 Rx albuterol sulfate 1 puff INHALATION QID PRN 01/22/21 01/22/21 History cholecalciferol (vitamin D3) 75 mcg PO DAILY 01/22/21 01/22/21 History levothyroxine 150 mcg PO DAILY 01/22/21 01/22/21 History lidocaine HCl [Aspercreme 1 applic TOPICAL BID 01/22/21 01/22/21 History (lidocaine HCl)] polyethylene glycol 3350 [Miralax] 17 g PO HS 01/22/21 01/22/21 History Allergies Allergy/AdvReac Type Severity Reaction Status Date / Time No Known Allergies Allergy Unknown Verified
[2021-01-23] MEDS: LEVOTHYROXINE SODIUM 150 MCG TABLET PO (07:49)
[2021-01-23 08:00] LABS: Hematocrit 25.2 % (37.0-47.0); Hemoglobin 7.9 g/dL (12.0-15.0)
[2021-01-23 08:12] LABS: Anion Gap 4 mmol/L (8-16); Blood Urea Nitrogen 13 mg/dL (7-17); Calcium 8.5 mg/dL (8.4-10.2); Carbon Dioxide 27 mmol/L (22-30); Chloride 111 mmol/L (98-107); Estimated CRCL calculation 44 ml/min; Estimated Glomerular Filt Rate > 60; Glucose 80 mg/dL (65-110); Potassium 4.5 mmol/L (3.4-5.0); Sodium 142 mmol/L (137-145)
[2021-01-23] MEDS: MEMANTINE 5 MG TABLET PO ×2 (09:04→21:31)
[2021-01-23] MEDS: CITALOPRAM HYDROBROMIDE 10 MG TABLET 40 MG PO (09:04)
[2021-01-23] MEDS: lamoTRIgine 25 MG TABLET PO ×2 (09:04→21:31)
[2021-01-23] MEDS: buPROPion HCL 75 MG TABLET PO (09:04)
[2021-01-23 09:27] LABS: Free T4 Free Thyroxine Reflex 0.93 ng/dL (0.78-2.19)
--- NOTE | 2021-01-23 10:15 | PM.IMPN ---
Progress Note: A&P Assessment and Plan (1) Anemia: Qualifiers: Anemia type: unspecified type Qualified Code(s): D64.9 - Anemia, unspecified Code(s): D64.9 - Anemia, unspecified Status: Acute Assessment and Plan: Hemoglobin was 5.4 on admission and has improved to 7.9 after 2 units of blood - last hemoglobin on our records was normal 12.9 on 03/12/2020 - stool Hemoccult test was reportedly positive in the ER - plan for EGD today - unfortunately no anemia studies were drawn prior to her blood transfusions and will be inaccurate - will add Protonix until EGD is resulted - GI on board - consider starting iron ( will wait to see if she needs a colonoscopy 1st) (2) COPD (chronic obstructive pulmonary disease): Qualifiers: COPD type: unspecified COPD Qualified Code(s): J44.9 - Chronic obstructive pulmonary disease, unspecified Code(s): J44.9 - Chronic obstructive pulmonary disease, unspecified Status: Chronic Assessment and Plan: no wheezing on exam, no exacerbation at this time - continue trilogy and p.r.n. albuterol (3) Dementia: Code(s): F03.90 - Unspecified dementia without behavioral disturbance Status: Acute Assessment and Plan: calm and collective but unreliable historian - continue Namenda, Zyprexa, Celexa and Lamictal (4) Hypothyroidism: Qualifiers: Hypothyroidism type: unspecified Qualified Code(s): E03.9 - Hypothyroidism, unspecified Code(s): E03.9 - Hypothyroidism, unspecified Status: Chronic Assessment and Plan: TSH mildly high, could be due to acute illness. T4 normal - continue levothyroxine (5) Essential hypertension: Code(s): I10 - Essential (primary) hypertension Status: Acute Assessment and Plan: last blood pressure 145/63 - continue lisinopril (6) Gastroesophageal reflux disease: Code(s): K21.9 - Gastro-esophageal reflux disease without esophagitis Status: Inactive Assessment and Plan: will schedule Protonix until EGD is complete Time Spent With Patient Time with patient: 25 - 35 minutes Subjective Date/time seen: 01/23/21 10:15 Interval history: Pt is a 80-year-old female here for anemia. Patient was pleasantly confused on exam but I am unsure about the quality of her answers. patient does not know where she is or why she is here. She denies chest pain, lightheadedness, dizziness, abdominal pain, diarrhea, nausea or vomiting. With that being said, she is in good spirits and smiling. Review of Systems Review of Systems: All systems reviewed & are unremarkable except as noted in HPI and below Exam Narrative: General: Well developed well nourished patient in NAD HEENT: normocephalic Neck: supple Neuro: Alert and oriented to herself only. Follows commands. Cranial nerves 2-12 intact. Equal strength in the upper lower extremities 5/5 CV:RRR. Telemetry shows no worrisome alarm reviews Resp:CTA Abd: Soft, non distended. No pain to palpation. Positive bowel sounds Extremities: No swelling, erythema, or pain to palpation. Objective Data Vital Signs Vital Signs: Vital Signs - 24 hr 01/22/21 19:13 01/22/21 20:04 01/22/21 20:56 Temperature Pulse Rate 65 68 71 Respiratory Rate 16 23 H 19 Blood Pressure 129/57 L 115/45 L 125/70 Pulse Oximetry 99 99 99 01/22/21 21:35 01/22/21 21:47 01/22/21 21:51 Temperature 97.8 F 97.6 F 97.6 F Pulse Rate 71 79 77 Respiratory Rate 20 19 18 Blood Pressure 149/78 H 125/62 124/60 Pulse Oximetry 98 98 97 01/22/21 22:22 01/22/21 22:33 01/22/21 23:00 Temperature 97.6 F 97.5 F L Pulse Rate 75 78 114 H Respiratory Rate 19 22 H 18 Blood Pressure 133/77 137/64 126/57 L Pulse Oximetry 97 92 01/22/21 23:15 01/22/21 23:30 01/23/21 00:00 Temperature 97.5 F L 97.8 F 97.8 F Pulse Rate 114 H 68 64 Respiratory Rate 18 16 16 Blood Pressure 12
[2021-01-23] MEDS: FLUTICASONE/UMECLIDIN/VILANTER 100-62.5-25 MCG ELLIPTA 1 PUFF INHALATION (11:10)
[2021-01-23] MEDS: PANTOPRAZOLE SODIUM IV 40 MG VIAL IV PUSH ×2 (11:34→21:31)
--- NOTE | 2021-01-23 14:26 | PC.NURSE ---
Pt to GI lab per bed. 01/23/21 0023
[2021-01-23] MEDS: LACTATED RINGERS 1,000 ML 150 ML IV CONT (14:49)
--- NOTE | 2021-01-23 15:01 | WPDANESEPPF ---
Anes - Initial Pre Proc Eval Procedure: Operation Date: 01/23/21 16:00 Proposed Procedures p Esophagogastroduodenoscopy - Asim Aj MD Date/Time: 01/23/21 15:01 Surgeon: Ninfa Hurtado PA-C Pre Op Diagnosis: Anemia Patient Data Age: 80 Gender: F Height: 1.6 m Weight: 50.2 kg Last Vital Signs Temp 36.9 C 01/23/21 14:47 Pulse 72 01/23/21 14:47 Resp 20 01/23/21 14:47 BP 151/56 H 01/23/21 14:47 Pulse Ox 96 01/23/21 14:47 Allergies Allergy/AdvReac Type Severity Reaction Status Date / Time No Known Allergies Allergy Unknown Verified 01/23/21 14:42 Home Medications Medication Instructions Recorded Confirmed Type memantine 5 mg tablet 5 mg PO BID #180 tablet 02/27/19 01/22/21 Rx lisinopril 20 mg PO DAILY 10/23/19 01/22/21 History Trelegy Ellipta 1 inhalation INHALATION DAILY 30 10/27/19 01/22/21 Rx Days #28 each citalopram 40 mg tablet 40 mg PO DAILY #90 tablet 11/12/19 01/22/21 Rx lamotrigine 25 mg chewable 25 mg PO BID #180 each 12/11/19 01/22/21 Rx dispersible tablet bupropion HCl 75 mg PO DAILY 12/26/19 01/22/21 History buspirone 5 mg PO QPM 03/09/20 01/22/21 History olanzapine 5 mg PO HS #30 tablet 03/12/20 01/22/21 Rx albuterol sulfate 1 puff INHALATION QID PRN 01/22/21 01/22/21 History cholecalciferol (vitamin D3) 75 mcg PO DAILY 01/22/21 01/22/21 History levothyroxine 150 mcg PO DAILY 01/22/21 01/22/21 History lidocaine HCl [Aspercreme 1 applic TOPICAL BID 01/22/21 01/22/21 History (lidocaine HCl)] polyethylene glycol 3350 [Miralax] 17 g PO HS 01/22/21 01/22/21 History Laboratory Tests 01/22/21 01/22/21 01/22/21 19:43 19:43 19:43 WBC 7.0 K/mm3 K/mm3 (4.5-10.0) RBC 2.00 M/mm3 L M/mm3 (4.2-5.4) Hgb 5.4 g/dL L* D g/dL (12.0-15.0) Hct 19.0 % L* % (37.0-47.0) MCV 95.0 fl fl (80-100) MCH 27.0 pg pg (26-34) MCHC 28.4 g/dl L g/dl (32-36) RDW 16.3 % H % (11.5-14.5) Plt Count 371 k/mm3 k/mm3 (150-375) MPV 9.6 fl fl (7.4-10.4) Immature Gran % (Auto) 0.4 % % (0-0.5) Neut % (Auto) 51.8 % % (45.5-73.1) Lymph % (Auto) 30.3 % % (18.3-44.2) [place] % (Auto) 12.2 % H % (2.6-8.5) Eos % (Auto) 4.7 % H % (0-4.4) Baso % (Auto) 0.6 % % (0.2-1.2) Lymph # (Auto) 2.13 K/mm3 K/mm3 (0.9-3.2) [place] # (Auto) 0.9 K/mm3 H K/mm3 (0.1-0.6) Eos # (Auto) 0.3 K/mm3 K/mm3 (0-0.3) Baso # (Auto) 0.0 K/mm3 K/mm3 (0.0-0.1) Abs Immat Gran (auto) 0.03 K/mm3 K/mm3 (0.00-0.031) Absolute Neuts (auto) 3.6 K/mm3 K/mm3 (1.3-6.7) Absolute Nucleated RBC 0.0 K/mm3 K/mm3 (0.0-0.012) Nucleated RBC % 0.0 % % (0.0-0.2) Sodium 141 mmol/L mmol/L (137-145) Potassium 4.1 mmol/L mmol/L (3.4-5.0) Chloride 109 mmol/L H mmol/L (98-107) Carbon Dioxide 26 mmol/L mmol/L (22-30) Anion Gap 6 mmol/L L mmol/L (8-16) BUN 16 mg/dL mg/dL (7-17) Creatinine 0.80 mg/dL mg/dL (0.7-1.0) Estim Creat Clear Calc Not Reportable Estimated GFR > 60 (59 - ) Glucose 98 mg/dL mg/dL (65-110) Calcium 9.0 mg/dL mg/dL (8.4-10.2) Total Bilirubin 0.2 mg/dL mg/dL (0.2-1.3) AST 20 U/L U/L (14-36) ALT 9 U/L U/L (4-35) Alkaline Phosphatase 95 U/L U/L (38-126) Total Protein 6.0 g/dL L g/dL (6.3-8.2) Albumin 3.5 g/dL g/dL (3.5-5.1) TSH (Reflex) Free T4 Total T3 Blood Type B Negative Antibody Screen Negative Crossmatch See Detail 01/23/21 01/23/21 01/23/21 07:23 07:23 07:23 WBC RBC Hgb 7.9 g/dL L g/dL (12.0-15.0) Hct 25.2 % L % (37.0-47.0) MCV
[2021-01-23 16:36] LABS: Hematocrit 27.7 % (37.0-47.0); Hemoglobin 8.7 g/dL (12.0-15.0)
[2021-01-23] MEDS: CHOLECALCIFEROL 1,000 UNITS TABLET 3000 UNITS PO (17:06)
[2021-01-23] MEDS: lisinopriL 20 MG TABLET PO (17:06)
[2021-01-23] MEDS: busPIRone HCL 5 MG TABLET PO (17:06)
[2021-01-23] MEDS: OLANZapine 5 MG TABLET PO (21:31)
[2021-01-23] MEDS: polyethylene glycoL 3350 17 GM POWD.PACK PO (21:31)
[2021-01-24] VITALS (10 sets, daily range): BP systolic 109–142; BP diastolic 60–71; PULSE 54–100; RESP 16–20; TEMP 36.4–36.9; O2SAT 93–97
[2021-01-24] MEDS: diphenhydrAMINE HCl INJ 50 MG/ML VIAL 25 MG IM (01:50)
[2021-01-24] MEDS: HALOPERIDOL LACTATE 5 MG/ML VIAL IM (01:50)
[2021-01-24 06:19] LABS: Hematocrit 28.7 % (37.0-47.0); Hemoglobin 8.8 g/dL (12.0-15.0)
[2021-01-24 06:25] LABS: Anion Gap 4 mmol/L (8-16); Blood Urea Nitrogen 10 mg/dL (7-17); Calcium 9.1 mg/dL (8.4-10.2); Carbon Dioxide 27 mmol/L (22-30); Chloride 110 mmol/L (98-107); Estimated CRCL calculation 44 ml/min; Estimated Glomerular Filt Rate > 60; Glucose 93 mg/dL (65-110); Potassium 4.6 mmol/L (3.4-5.0); Sodium 141 mmol/L (137-145)
[2021-01-24] MEDS: FLUTICASONE/UMECLIDIN/VILANTER 100-62.5-25 MCG ELLIPTA 1 PUFF INHALATION (09:53)
--- NOTE | 2021-01-24 09:57 | WPDANESPN ---
Anes - Prog Note Post-Op Date/Time: 01/24/21 09:57 Cardiovascular status: normal Respiratory status: normal Airway patency: baseline Mental status: baseline Post-Op hydration status: normal Vital Signs: Last Vital Signs Temp 36.2 C L 01/23/21 20:00 Pulse 78 01/24/21 04:00 Resp 16 01/23/21 20:00 BP 108/52 L 01/23/21 20:00 Pulse Ox 94 01/24/21 09:54 Pain Score (VAS): 0 I/O: Intake & Output 01/23/21 01/24/21 01/24/21 23:59 07:59 15:59 Intake Total 240 650 Output Total 700 Balance -460 650 Laboratory Tests 01/24/21 05:48 01/24/21 05:48 01/23/21 01/23/21 01/24/21 07:23 16:23 05:48 Hgb 8.7 L 8.8 L Hct 27.7 L 28.7 L Sodium Potassium Chloride Carbon Dioxide Anion Gap BUN Creatinine Estim Creat Clear Calc Estimated GFR Glucose Calcium Total T3 1.00 01/24/21 05:48 Hgb Hct Sodium 141 Potassium 4.6 Chloride 110 H Carbon Dioxide 27 Anion Gap 4 L BUN 10 Creatinine 0.70 Estim Creat Clear Calc 44 Estimated GFR > 60 Glucose 93 Calcium 9.1 Total T3 Post-procedural complaints: none Patient Feedback: Patient satisfied with anesthetic care.
[2021-01-24] MEDS: buPROPion HCL 75 MG TABLET PO (10:05)
[2021-01-24] MEDS: MEMANTINE 5 MG TABLET PO ×2 (10:05→22:25)
[2021-01-24] MEDS: lamoTRIgine 25 MG TABLET PO ×2 (10:05→22:25)
[2021-01-24] MEDS: polyethylene glycoL 3350 238 GM BOTTLE PO (10:06)
[2021-01-24] MEDS: PANTOPRAZOLE SODIUM IV 40 MG VIAL IV PUSH ×2 (10:06→22:26)
[2021-01-24] MEDS: CITALOPRAM HYDROBROMIDE 10 MG TABLET 40 MG PO (10:06)
[2021-01-24 13:35] LABS: Hematocrit 30.2 % (37.0-47.0); Hemoglobin 9.4 g/dL (12.0-15.0)
--- NOTE | 2021-01-24 13:53 | PM.IMPN ---
Progress Note: A&P Assessment and Plan (1) Anemia: Qualifiers: Anemia type: unspecified type Qualified Code(s): D64.9 - Anemia, unspecified Code(s): D64.9 - Anemia, unspecified Status: Acute Assessment and Plan: Hemoglobin was 5.4 on admission and has improved to 7.9 after 2 units of blood - today 8.8 stable - last hemoglobin on our records was normal 12.9 on 03/12/2020 - stool Hemoccult test was reportedly positive in the ER - unfortunately no anemia studies were drawn prior to her blood transfusions and will be inaccurate - EGD shows nonerosive reflux disease, small hiatal hernia, and gastritis - continue protonix - GI recommended colonoscopy - at this point pt is combative, not following commands, and ripping her IVs out. Family does not want to do an NG tube for colonoscopy prep at this time and RN is unable to get patient to drink the prep solution. All options were discussed at length with family both at bedside and via telephone including hospice, proceeding with NG and colonoscopy, and potentially discharging to the [facility] without any further workup however I explained with this option it was possible pt would end up with frequent hospitalizations due to low blood counts if we are unable to assess/correct source of bleeding. Ultimately the patient's daughter and I mutually decided to watch her Hgb q6hr for the next 24 hours and re evaluate tomorrow. We will discontinue bowel prep for colonoscopy at this time per family request. (2) COPD (chronic obstructive pulmonary disease): Qualifiers: COPD type: unspecified COPD Qualified Code(s): J44.9 - Chronic obstructive pulmonary disease, unspecified Code(s): J44.9 - Chronic obstructive pulmonary disease, unspecified Status: Chronic Assessment and Plan: no wheezing on exam, no exacerbation at this time - continue trilogy and p.r.n. albuterol (3) Dementia: Code(s): F03.90 - Unspecified dementia without behavioral disturbance Status: Acute Assessment and Plan: - continue Namenda, Zyprexa, Celexa and Lamictal (4) Hypothyroidism: Qualifiers: Hypothyroidism type: unspecified Qualified Code(s): E03.9 - Hypothyroidism, unspecified Code(s): E03.9 - Hypothyroidism, unspecified Status: Chronic Assessment and Plan: TSH mildly high, could be due to acute illness. T4 normal - continue levothyroxine (5) Essential hypertension: Code(s): I10 - Essential (primary) hypertension Status: Acute Assessment and Plan: last blood pressure 142/71 - continue lisinopril (6) Gastritis: Code(s): K29.70 - Gastritis, unspecified, without bleeding Status: Acute Assessment and Plan: See above -Continue protonix Subjective Date/time seen: 01/24/21 13:53 Interval history: Pt is a 80-year-old female here for anemia. Today she is laying on her side in the position stating I don't feel good, but will not elaborate further. She is not following commands. Appears lethargic. A/Ox0. Further hx limited secondary to dementia. Review of Systems Review of Systems: ROS unobtainable: Yes unobtainable due to mental status Exam Narrative: General: No acute distress, non toxic appearing Eyes: PERRL, no scleral icterus HEENT: NCAT, external ears normal, dry mucous membranes, normal pharynx Respiratory: No respiratory distress, Lungs CTA bilaterally, no wheezing Cardiovascular: RRR, no murmur Abdominal: Soft, nontender, non distended, no rebound or guarding Musculoskeletal: Moves all 4 extremities, no edema Neurological: A/Ox0, speech clear, no facial asymmetry, not following commands Skin: Warm, dry, no rashes Psychiatric: unable to assess Objective Data Vital Signs Vital Signs: Vital Signs - 24 hr 01/23/21 14:47 01/23/21 15:33 01/23/21 15:43 Temperature 98.4 F Pulse Rate 72 69 72 Resp
[2021-01-24] MEDS: lisinopriL 20 MG TABLET PO (16:34)
[2021-01-24] MEDS: busPIRone HCL 5 MG TABLET PO (16:35)
[2021-01-24] MEDS: CHOLECALCIFEROL 1,000 UNITS TABLET 3000 UNITS PO (16:35)
[2021-01-24 19:01] LABS: Hematocrit 27.6 % (37.0-47.0); Hemoglobin 8.7 g/dL (12.0-15.0)
[2021-01-24] MEDS: polyethylene glycoL 3350 17 GM POWD.PACK PO (22:25)
[2021-01-24] MEDS: OLANZapine 5 MG TABLET PO (22:25)
[2021-01-25] VITALS (7 sets, daily range): BP systolic 119–141; BP diastolic 53–63; PULSE 57–92; RESP 16; TEMP 36.6–37.1; O2SAT 95–100
[2021-01-25 00:49] LABS: Hematocrit 26.3 % (37.0-47.0); Hemoglobin 8.2 g/dL (12.0-15.0)
[2021-01-25] MEDS: LEVOTHYROXINE SODIUM 150 MCG TABLET PO (05:38)
[2021-01-25 06:58] LABS: Anion Gap 2 mmol/L (8-16); Blood Urea Nitrogen 8 mg/dL (7-17); Calcium 8.9 mg/dL (8.4-10.2); Carbon Dioxide 27 mmol/L (22-30); Chloride 110 mmol/L (98-107); Estimated CRCL calculation 39 ml/min; Estimated Glomerular Filt Rate > 60; Glucose 91 mg/dL (65-110); Hematocrit 27.7 % (37.0-47.0); Hemoglobin 8.6 g/dL (12.0-15.0); Potassium 4.3 mmol/L (3.4-5.0); Sodium 139 mmol/L (137-145)
[2021-01-25 07:51] LABS: Basophils Absolute Auto 0.1 K/mm3 (0.0-0.1); Basophils Percent Auto 0.8 % (0.2-1.2); Eosinophils Absolute Auto 0.4 K/mm3 (0-0.3); Eosinophils Percent Auto 4.9 % (0-4.4); Hematocrit 27.7 % (37.0-47.0); Hemoglobin 8.7 g/dL (12.0-15.0); Immature Granulocyte Absolute 0.04 K/mm3 (0.00-0.031); Immature Granulocyte Percent A 0.5 % (0-0.5); Lymphocytes Percent Auto 20.3 % (18.3-44.2); Mean Corpuscular HGB Conc 31.4 g/dl (32-36); Mean Corpuscular Hemoglobin 28.9 pg (26-34); Mean Platelet Volume 9.8 fl (7.4-10.4); Monocytes Absolute Auto 0.8 K/mm3 (0.1-0.6); Monocytes Percent Auto 11.2 % (2.6-8.5); Neutrophils Absolute Auto 4.6 K/mm3 (1.3-6.7); Neutrophils Percent Auto 62.3 % (45.5-73.1); Platelet Count Result 386 k/mm3 (150-375); Red Blood Count 3.01 M/mm3 (4.2-5.4); White Blood Count 7.4 K/mm3 (4.5-10.0)
[2021-01-25 08:02] LABS: Alanine Aminotransferase 9 U/L (4-35); Alkaline Phosphatase 97 U/L (38-126); Aspartate Amino Transferase 33 U/L (14-36); Bilirubin,Total 0.4 mg/dL (0.2-1.3)
[2021-01-25] MEDS: buPROPion HCL 75 MG TABLET PO (09:03)
[2021-01-25] MEDS: CITALOPRAM HYDROBROMIDE 10 MG TABLET 40 MG PO (09:03)
[2021-01-25] MEDS: lisinopriL 20 MG TABLET PO (09:03)
[2021-01-25] MEDS: PANTOPRAZOLE SODIUM IV 40 MG VIAL IV PUSH (09:03)
[2021-01-25] MEDS: CHOLECALCIFEROL 1,000 UNITS TABLET 3000 UNITS PO (09:04)
[2021-01-25] MEDS: lamoTRIgine 25 MG TABLET PO (09:04)
[2021-01-25] MEDS: MEMANTINE 5 MG TABLET PO (09:04)
[2021-01-25] MEDS: FLUTICASONE/UMECLIDIN/VILANTER 100-62.5-25 MCG ELLIPTA 1 PUFF INHALATION (10:29)
--- NOTE | 2021-01-25 12:02 | PM.DS ---
DS: Admitting Diagnosis Discharge Date 01/25/21 Admitting Diagnosis Acute anemia DS: Discharge Diagnosis Discharge Diagnosis (1) Anemia: Qualifiers: Anemia type: unspecified type Qualified Code(s): D64.9 - Anemia, unspecified Code(s): D64.9 - Anemia, unspecified Status: Acute Assessment and Plan: Hemoglobin was 5.4 on admission and improved to 7.9 after 2 units of blood - last hemoglobin on our records was normal 12.9 on 03/12/2020 - stool Hemoccult test was reportedly positive in the ER - unfortunately no anemia studies were drawn prior to her blood transfusions and will be inaccurate - EGD shows nonerosive reflux disease, small hiatal hernia, and gastritis - continue protonix, will discharge home on protonix - GI recommended colonoscopy - at this point pt is combative, not following commands, and ripping her IVs out. Family does not want to do an NG tube for colonoscopy prep at this time and RN is unable to get patient to drink the prep solution. All options were discussed at length with family both at bedside and via telephone including hospice, proceeding with NG and colonoscopy, and potentially discharging to the [facility] without any further workup however I explained with this option it was possible pt would end up with frequent hospitalizations due to low blood counts if we are unable to assess/correct source of bleeding. Ultimately the patient's daughter and I mutually decided to watch her Hgb q6hr for the next 24 hours and re evaluate today. -Today hgb is stable at 8.6, has been stable x3 days. I spoke w/ daughter SIVAKUMAR Sheikh. We discussed potential anxiolytics to place NG and proceed with colon prep versus hospice versus discharge back to [facility] with repeat blood work in 48 hours. Kori has decided not to move forward w/ colonoscopy and would like patient discharged back to the [facility] today. All risks were discussed at length including risk of continued bleeding, shock, or even . -Pt has been hemodynamically stable. BP today 141/63. Will give order for repeat CBC in 48 hours. All questions and concerns addressed with daughter Kori who is aware. We discussed that if hgb drops again we may consider the NG tube for colon prep and colonoscopy in the future. (2) COPD (chronic obstructive pulmonary disease): Qualifiers: COPD type: unspecified COPD Qualified Code(s): J44.9 - Chronic obstructive pulmonary disease, unspecified Code(s): J44.9 - Chronic obstructive pulmonary disease, unspecified Status: Chronic Assessment and Plan: no wheezing on exam, no exacerbation at this time - continued trilogy and p.r.n. albuterol (3) Dementia: Code(s): F03.90 - Unspecified dementia without behavioral disturbance Status: Acute Assessment and Plan: - continued Namenda, Zyprexa, Celexa and Lamictal (4) Hypothyroidism: Qualifiers: Hypothyroidism type: unspecified Qualified Code(s): E03.9 - Hypothyroidism, unspecified Code(s): E03.9 - Hypothyroidism, unspecified Status: Chronic Assessment and Plan: TSH mildly high, could be due to acute illness. T4 normal - continued levothyroxine (5) Essential hypertension: Code(s): I10 - Essential (primary) hypertension Status: Acute Assessment and Plan: last blood pressure 141/63 -continued Lisinopril (6) Gastritis: Code(s): K29.70 - Gastritis, unspecified, without bleeding Status: Acute Assessment and Plan: See above -Continue protonix on discharge DS: Summary Hospital Course Reason for hospitalization: This is an 80-year-old female pleasantly demented past medical history significant for hypothyroidism, dementia, hypertension, COPD/emphysema generalized anxiety, gastroesophageal reflux disease, who was admitted for acute anemia. Please see HPI for further details. Hospital Co
--- NOTE | 2021-01-26 07:40 | PCNSR ---
On 01/26/21, the student,Coral Covarrubias, provided care and completed [facility] documentation on this patient. I have reviewed the student's documentation and agree with the findings.
== END 2021-01-25 16:20 | DRG 812 ==
LOC: ANHED 21:02 → ANH2MED 21:54
PROVIDERS: Internal Medicine Gastroenterology; Physician Assistant; Admitting Provider Internal Medicine; Emergency Provider Emergency Medicine; Visit Provider Physician Assistant
PROC: 0DJ08ZZ Inspection of Upper Intestinal Tract, Via Natural or Artificial Opening Endoscopic (ICD-10-PCS; CPT 43235; principal; 2021-01-23 16:00)
DX: D64.9 Anemia, unspecified (principal); K92.1 Melena; K21.9 Gastro-esophageal reflux disease without esophagitis; K29.70 Gastritis, unspecified, without bleeding; K44.9 Diaphragmatic hernia without obstruction or gangrene; F03.90 Unspecified dementia, unspecified severity, without behavioral disturbance, psychotic disturbance, mood disturbance, and anxiety; E03.9 Hypothyroidism, unspecified; I10 Essential (primary) hypertension; J43.9 Emphysema, unspecified; F41.1 Generalized anxiety disorder; F41.9 Anxiety disorder, unspecified; Z86.73 Personal history of transient ischemic attack (TIA), and cerebral infarction without residual deficits; Z87.891 Personal history of nicotine dependence
CPT/HCPCS: 36415; 36430; 80048; 80053; 80076; 84439; 84443; 84480; 85014; 85018; 85025; 86850; 86900; 86901; 86920; 87081; 93005; 94640; 96374; 99285; A9270; C9113; G0378; J1200; J1630; J2704; J7050; J7120; P9016

== ENCOUNTER 2021-11-27 14:49 | Emergency (ER) | payer MEDICARE, MEDICAID, SELFPAY ==
--- NOTE | ~2021-11-27 | CT_ITS ---
EXAMINATION: CT cervical spine wo con DATE: 11/27/2021 15:29 INDICATION: Head injury TECHNIQUE: Computed tomography (CT) of the cervical spine was performed without intravenous contrast. The dose-length product (DLP) was 83.06 mGy-cm. Automated exposure control and iterative reconstruct ion technique were employed. COMPARISON: 08/27/2018 FINDINGS: There is 1 mm of unchanged retrolisthesis of C3 on C4. Vertebral body alignment is otherwis e normal. There is advanced loss of intervertebral disc space height from C3-4 through C6-7. The odon toid is intact. The vertebral body heights are maintained. Small degenerative osteophytes project fro m the anterior endplates of multiple vertebral bodies. There is severe multilevel facet and uncoverte bral joint osteoarthritis. IMPRESSION: 1. Severe cervical spondylosis without acute findings or significant interval change. Reviewed, dictated and finalized at location B. IMPRESSION: 1. Severe cervical spondylosis without acute findings or significant interval ozzy eagle.
--- NOTE | ~2021-11-27 | XR_ITS ---
XR shoulder RT min 2V DATE: 11/27/2021 15:43 INDICATION: Lateral right shoulder pain following fall today TECHNIQUE: 3 views of right shoulder COMPARISON: 08/15/2018 right shoulder FINDINGS: There is osteopenia. There is osteoarthritis at the right glenohumeral joint. No fracture or dislocation, periosteal reaction or bone destruction of the right shoulder is detected . There is subtle chondrocalcinosis suggested. IMPRESSION: Osteopenia No fracture or dislocation of right shoulder Reviewed, dictated and finalized at location A.
--- NOTE | ~2021-11-27 | XR_ITS ---
XR knee RT 3V DATE: 11/27/2021 15:43 INDICATION: Fall today; anterior right knee pain TECHNIQUE: 3 views including crosstable lateral COMPARISON: None FINDINGS: Very subtle chondrocalcinosis is noted. Osteopenia. No fracture or dislocation or joint effusion, periosteal reaction or bone destruction or radiopaque i nterarticular loose body is noted. Joint spaces appear well preserved. IMPRESSION: Subtle chondrocalcinosis No fracture or dislocation Osteopenia Reviewed, dictated and finalized at location A.
--- NOTE | ~2021-11-27 | CT_ITS ---
EXAMINATION: CT brain wo con INDICATION: Head injury COMPARISON: 03/09/2020 TECHNIQUE: Standard unenhanced head CT. The dose-length product (DLP) was 529.67 mGy-cm. The mA was a djusted according to patient size. Iterative reconstruction technique was employed. FINDINGS: There is a right frontal scalp hematoma. There is no acute intraparenchymal hemorrhage. No evidence of mass lesion. No evidence of acute infarction. There is mild periventricular and subcortic al hypodensity probably related to small vessel ischemic disease. There is mild prominence of the sul ci and ventricles related to cerebral atrophy. Intracranial calcified cerebral atherosclerosis is not ed. There are no extra-axial collections. There is no mass effect or midline shift. Changes in the gl obes are likely from ocular lens surgery. There is mild mucosal thickening of the paranasal sinuses. IMPRESSION: 1. No acute intracranial abnormality. 2. Age related findings. Reviewed, dictated and finalized at location B.
[2021-11-27 14:50] VITALS: BP 144/75; PULSE 62; RESP 18; TEMP 36.4; O2SAT 99
--- NOTE | 2021-11-27 15:10 | ED.FALL ---
HPI - Fall General Chief Complaint: Fall Stated Complaint: nose bleed s/p GLF Time Seen by Provider: 11/27/21 14:59 History of Present Illness HPI Narrative: 81-year-old female presents to the emergency room today for evaluation after having a ground-level fall [place] she [place]. She had a bloody nose which is now resolved and she had a raised bump on her right forehead. She also complained of right shoulder and right knee pain to the EMS staff. She has a history of dementia and is only oriented to 1. She remains at her mentation baseline. She is awake and alert. She is not able to provide any history today. Related Data Home Medications Medication Instructions Recorded Confirmed lisinopril 20 mg tablet 20 mg PO DAILY 10/23/19 01/22/21 bupropion HCl 75 mg tablet 75 mg PO DAILY 12/26/19 01/22/21 buspirone 5 mg tablet 5 mg PO QPM 03/09/20 01/22/21 albuterol sulfate 90 mcg/actuation 1 puff inhalation QID PRN 01/22/21 01/22/21 aerosol inhaler Shortness Of Breath cholecalciferol (vitamin D3) 25 75 mcg PO DAILY 01/22/21 01/22/21 mcg (1,000 unit) capsule levothyroxine 125 mcg tablet 150 mcg PO DAILY 01/22/21 01/22/21 lidocaine HCl 4 % topical cream 1 applic topical BID 01/22/21 01/22/21 (Aspercreme (lidocaine HCl)) polyethylene glycol 3350 17 gram 17 g PO HS 01/22/21 01/22/21 oral powder packet (Miralax) Allergies Allergy/AdvReac Type Severity Reaction Status Date / Time No Known Allergies Allergy Unknown Verified 01/23/21 14:42 Review of Systems Review of Systems: ROS unobtainable: Yes unobtainable due to mental status PMFSH Past Medical History Medical History Anxiety Asthma Chronic obstructive pulmonary disease Dementia Dementia with behavioral disturbance Depression Essential hypertension Gastroesophageal reflux disease Goiter History of concussion Hypothyroidism Pneumonia Transient ischemic attack Surgical History Surgical History History of spinal surgery (~1994) History of tubal ligation Family History Family History Mother Diabetes mellitus Congestive heart failure Father Emphysema lung Sibling Heart attack Social History Social History Social History: The patient lives at [facility]. She is a former smoker and quit 1988. No alcohol or illicit substance use. Daughter Kori Padilla is her healthcare power of bridal sales consultant and she is listed as a full code. Smoking status: Former smoker Tobacco type: cigarettes Smoking end date: 03/14/88 Alcohol intake: unknown Substance use: unknown Substance use type: does not use Gender identity (if verbalized by the patient): Female Sexual Orientation (if Verbalized by the Patient): Straight or Heterosexual Spiritual care concerns: No Agree to blood products: Yes Exam Narrative: GENERAL: Well-appearing, well-nourished, and in no acute distress. HEAD: Normocephalic, small raised bump noted to right forehead NECK: Supple. No adenopathy or masses. CHEST: Clear to auscultation. No respiratory distress. No wheezes rales or rhonchi HEART: Regular rate and rhythm. No murmur heard. Normal peripheral pulses. ABDOMEN: Soft, nontender, nondistended, normal active bowel sounds. EXTREMITIES: Normal range of motion. No edema. No deformity or swelling SKIN: Warm, dry, no rash. NEURO: No focal deficits. Alert and oriented x3. PSYCH: Normal mood and affect. Course Vital Signs Vital signs: Vital Signs Temperature 36.4 C 11/27/21 14:50 Pulse Rate 62 11/27/21 14:50 Respiratory Rate 18 11/27/21 14:50 Blood Pressure 144/75 H 11/27/21 14:50 Pulse Oximetry 99 11/27/21 14:50 Oxygen Delivery Room Air 11/27/21 14:50 Temperature 36.4 C 11/27/21 14:50
--- NOTE | 2021-11-27 16:33 | PC.NURSE ---
Patient found ambulating in hallway. Patient placed in wheelchair and taken back to room, placed in bed. Bed alarm plugged back into wall. Confirmed yellow triangle and yellow wristband tag being utilized already. As precautionary, sitter placed with patient d/t fall risk.
[2021-11-27 17:11] VITALS: BP 115/78; PULSE 82; RESP 16; O2SAT 100
== END 2021-11-27 17:45 ==
PROVIDERS: Emergency Provider Nurse Practitioner Family
DX: S00.83XA Contusion of other part of head, initial encounter (principal); S49.91XA Unspecified injury of right shoulder and upper arm, initial encounter; F03.91 Unspecified dementia, unspecified severity, with behavioral disturbance; S89.91XA Unspecified injury of right lower leg, initial encounter; J44.9 Chronic obstructive pulmonary disease, unspecified; I10 Essential (primary) hypertension; K21.9 Gastro-esophageal reflux disease without esophagitis; F41.9 Anxiety disorder, unspecified; Z86.73 Personal history of transient ischemic attack (TIA), and cerebral infarction without residual deficits; Z87.01 Personal history of pneumonia (recurrent); Z87.891 Personal history of nicotine dependence; W18.30XA Fall on same level, unspecified, initial encounter
CPT/HCPCS: 70450; 72125; 73030; 73562; 99284

== ENCOUNTER 2022-01-08 10:47 | Inpatient (IN) | payer MEDICARE, MEDICAID, SELFPAY ==
[2022-01-08] VITALS (22 sets, daily range): BP systolic 116–155; BP diastolic 55–98; PULSE 96–115; RESP 12–28; TEMP 36.3–37.6; O2SAT 87–100; BMI 18.9
--- NOTE | ~2022-01-08 | XR_ITS ---
XR hip BI 2V w AP pelvis 01/09/2022 13:53 Indication: Left hip pain Procedure: AP pelvis and 2 views each hip Comparison: 11/25/2003 Findings: There is osteoarthritis of the hips. There is a possible nondisplaced left femoral neck fra cture. Recommend CT. Pelvic rings are intact. There is lower lumbar spondylosis. Impression: 1: Possible nondisplaced left femoral neck fracture. Recommend correlation with CT. Reviewed, dictated and finalized at location A. Impression: 1: Possible nondisplaced left femoral neck fracture. Recommend correlation with CT.
--- NOTE | ~2022-01-08 | CT_ITS ---
EXAMINATION: CT abdomen pelvis wo con DATE: 01/11/2022 17:55 INDICATION: abd pain. TECHNIQUE: Computed tomography (CT) of the abdomen and pelvis was performed without intravenous contr ast. Automated exposure control and iterative reconstruction technique were employed. The dose-length product was 316.73 mGy-cm. COMPARISON: 03/09/2020. FINDINGS: Exam limited by motion and beam hardening from arm position. Lower thorax: Senescent changes. Bibasilar scarring. Moderate coronary artery calcification. Trace pe ricardial effusion. Moderate hiatal hernia. Liver: Normal. Biliary/Gallbladder: Fluid distended gallbladder, without wall thickening or inflammatory change. No bile duct dilation. Pancreas: No mass or duct dilation. Spleen: Normal. Adrenals:No mass. Kidneys: No mass, stone, or hydronephrosis. GI tract: No small or large bowel dilation. Normal appendix. Extensive diverticulosis, without divert iculitis Mesentery/Peritoneum: No ascites, mass, or free air. Retroperitoneum: No mass. Atherosclerotic abdominal aortic and/or arterial calcifications. Pelvis: Bladder wall thickening and inflammatory change, with eccentric thickening in the right poste rior bladder. Remaining pelvic organs are within normal limits. Soft Tissues: Soft tissues and body wall unremarkable. Bones: Acute appearing moderate compression deformity at T12. IMPRESSION: Limited exam, as detailed above. Cystitis. Asymmetric bladder wall thickening, consider referral for cystoscopy to evaluate for a bladder mass. Acute appearing moderate T12 compression fracture. Gallbla dder hydrops, without CT findings of cholecystitis. Reviewed, dictated and finalized at location K. IMPRESSION: Limited exam, as detailed above. Cystitis. Asymmetric bladder wall thickening, consider referral for cystoscopy to evaluate for a bladder mass. Acute appearin g moderate T12 compression fracture. Gallbladder hydrops, without CT findings o f cholecystitis.
--- NOTE | ~2022-01-08 | XR_ITS ---
EXAMINATION: XR abdomen obstructive series DATE: 01/09/2022 13:52 INDICATION: Abdomen pain. Possible constipation. TECHNIQUE: Supine and upright views of the abdomen. FINDINGS: 06/27/2018 The visualized lung parenchyma is normal.. There is a nonobstructive bowel gas pattern. Gas and stool are seen throughout the colon to the level of the rectum. There is a large amount of retained fecal material, consistent with impaction. There is no free air. IMPRESSION: 1. Colonic fecal impaction.. Reviewed, dictated and finalized at location A.
--- NOTE | ~2022-01-08 | XR_ITS ---
EXAMINATION: XR chest 1V portable 01/08/2022 13:11 INDICATION: Shortness of breath PROCEDURE: AP portable chest COMPARISON: Comparison to multiple prior studies sequentially, with oldest reviewed study dated 08/28. FINDINGS: The lungs are clear. The lungs are hyperinflated which is consistent with, but not diagnost ic of chronic obstructive pulmonary disease. The cardiomediastinal silhouette is within normal limit s. There are no pleural effusions. There is no pneumothorax suspected. There is a healed left midc lavicular fracture. IMPRESSION: 1: NO ACUTE CARDIOPULMONARY DISEASE. Reviewed, dictated and finalized at location B.
--- NOTE | ~2022-01-08 | CT_ITS ---
EXAMINATION: CT hip LT wo con DATE: 01/09/2022 19:24 INDICATION: Possible fracture. TECHNIQUE: Computed tomography (CT) of the left hip was performed without intravenous contrast. Autom ated exposure control and iterative reconstruction technique were employed. The dose-length product w as 193.22 mGy-cm. COMPARISON: X-ray bilateral hips and pelvis, same date. FINDINGS: Calcified leiomyomas. Diverticuli without diverticulitis. Atherosclerotic vascular calcific ations. Bladder wall inflammatory change. Anterior ureterocele. Osteopenia. Mild left hip osteoarthri tis. Mild trochanteric and pelvic enthesopathy. No fracture or dislocation. IMPRESSION: No acute osseous finding in the left hip. Likely cystitis. Reviewed, dictated and finalized at location K.
--- NOTE | ~2022-01-08 | CT_ITS ---
EXAMINATION: CT brain wo con DATE: 01/09/2022 14:04 INDICATION: Altered mental status TECHNIQUE: Computed tomography (CT) of the head was performed without intravenous contrast. The dose- length product was 529.67 mGy-cm. Automated exposure control and iterative reconstruction technique w ere employed. COMPARISON: CT dated 11/27/2021 FINDINGS: Generalized atrophy. There are scattered moderate periventricular and subcortical white mat ter changes, most likely related to small vessel ischemic disease (microangiopathy). No ventriculomeg hiram or midline shift. Basilar cisterns are patent. Mild mucosal thickening of the paranasal sinuses. Mastoids are pneumatized. No depressed skull fractures. No acute intracranial hemorrhage, infarction, mass or mass effect. IMPRESSION: 1. No acute intracranial abnormality. 2: Chronic age-related findings. Reviewed, dictated and finalized at location A.
--- NOTE | 2022-01-08 11:28 | ECG_ITS ---
Measurements Intervals [place] Rate: 109 P: 83 NV: 153 QRS: 59 QRSD: 77 T: 71 QT: 295 QTc: 398 Interpretive Statements SINUS TACHYCARDIA WITH OCCASIONAL SUPRAVENTRICULAR PREMATURE COMPLEXES BASELINE ARTIFACT NONSPECIFIC T-WAVE ABNORMALITY CANNOT RULE OUT SEPTAL INFARCT, AGE INDETERMINATE ABNORMAL ECG COMPARED TO ECG 01/22/2021 19:45:19 HEART RATE HAS INCREASED Electronically Signed On 01-08-2022 16:51:05 CDT by Killian Shearer M.D.
[2022-01-08 12:05] LABS: Basophils Percent Auto 0.3 % (0.2-1.2); Eosinophils Percent Auto 0.1 % (0-4.4); Hematocrit 47.7 % (37.0-47.0); Hemoglobin 14.2 g/dL (12.0-15.0); Immature Granulocyte Absolute 0.06 K/mm3 (0.00-0.031); Immature Granulocyte Percent A 0.5 % (0-0.5); Lymphocytes Absolute Auto 1.54 K/mm3 (0.9-3.2); Lymphocytes Percent Auto 12.5 % (18.3-44.2); Mean Corpuscular HGB Conc 29.8 g/dl (32-36); Mean Corpuscular Hemoglobin 31.7 pg (26-34); Mean Corpuscular Volume 106.5 fl (80-100); Mean Platelet Volume 10.8 fl (7.4-10.4); Monocytes Absolute Auto 1.3 K/mm3 (0.1-0.6); Monocytes Percent Auto 10.7 % (2.6-8.5); Neutrophils Absolute Auto 9.4 K/mm3 (1.3-6.7); Neutrophils Percent Auto 75.9 % (45.5-73.1); Platelet Count Result 256 k/mm3 (150-375); Red Blood Count 4.48 M/mm3 (4.2-5.4); Red Cell Distribution Width 12.5 % (11.5-14.5); White Blood Count 12.4 K/mm3 (4.5-10.0)
[2022-01-08 12:12] LABS: Add Urine Microscopic? YES; Appearance Urine Cloudy (Clear); Bacteria Urine 4+ /hpf; Bilirubin Urine Negative (Negative); Blood Urine 1+ (Negative); Color Urine Amber (Yellow); Glucose Urine UA Negative (Negative); Granular Casts Urine 15-19 /lpf; Ketones Urine Trace mg/dL (Negative); Leukocyte Esterase Ur Trace LEU/UL (Negative); Mucus Urine Rare /lpf; Nitrate Urine Negative (Negative); Protein Urine 2+ mg/dL (Negative); Specific Grav Ur 1.015 (1.001-1.035); Squamous Epithelial Cell Urine Rare /hpf (Few); WBC Clumps Urine Present /HPF; WBC Urine 21-30 /hpf
--- NOTE | 2022-01-08 12:17 | PC.NURSE ---
Patient placed on 2L O2 due to oxygen sat going down to 88%
[2022-01-08 12:19] LABS: Alanine Aminotransferase 23 U/L (6-35); Albumin Level 4.1 g/dL (3.5-5.1); Alkaline Phosphatase 110 U/L (38-126); Anion Gap 14 mmol/L (8-16); Aspartate Amino Transferase 43 U/L (14-36); Bilirubin,Total 0.7 mg/dL (0.2-1.3); Blood Urea Nitrogen 56 mg/dL (7-17); Calcium 10.4 mg/dL (8.4-10.2); Carbon Dioxide 30 mmol/L (22-30); Chloride 116 mmol/L (98-107); Estimated CRCL calculation 20 ml/min; Estimated Glomerular Filt Rate 29; Glucose 130 mg/dL (65-110); Potassium 4.3 mmol/L (3.4-5.0); Sodium 160 mmol/L (137-145)
[2022-01-08] MEDS: SODIUM CHLORIDE 0.9% IV 1,000 ML 999 ML IV CONT (12:43)
--- NOTE | 2022-01-08 12:48 | ED.WEAKNESS ---
HPI - Weakness General Chief complaint: Weakness Stated complaint: weakness Time Seen by Provider: 01/08/22 12:00 History of Present Illness HPI Narrative: Patient is an 81-year-old female who presents ER with altered mental status. Patient has history of dementia but has been more weak and confused than typical. Oriented x1 at this time. Has history of UTI as a cause her to be weak and confused according to her daughter that is present. No recent reports of illness or symptoms according to her daughter. Patient cannot provide history. Elevated temperature on arrival here. For EMS oxygen sat was around 90% on room air. Related Data Home Medications Medication Instructions Recorded Confirmed lisinopril 20 mg tablet 20 mg PO DAILY 10/23/19 01/08/22 bupropion HCl 75 mg tablet 75 mg PO DAILY 12/26/19 01/08/22 buspirone 5 mg tablet 5 mg PO QPM 03/09/20 01/08/22 albuterol sulfate 90 mcg/actuation 1 puff inhalation QID PRN 01/22/21 01/08/22 aerosol inhaler Shortness Of Breath cholecalciferol (vitamin D3) 25 75 mcg PO DAILY 01/22/21 01/22/21 mcg (1,000 unit) capsule levothyroxine 125 mcg tablet 150 mcg PO DAILY 01/22/21 01/08/22 lidocaine HCl 4 % topical cream 1 applic topical BID 01/22/21 01/08/22 (Aspercreme (lidocaine HCl)) polyethylene glycol 3350 17 gram 17 g PO HS 01/22/21 01/08/22 oral powder packet (Miralax) citalopram 40 mg tablet 20 mg PO DAILY 01/08/22 01/08/22 mirtazapine 15 mg tablet 15 mg PO QHS 01/08/22 01/08/22 trazodone 50 mg tablet 25 mg PO QHS 01/08/22 01/08/22 Allergies Allergy/AdvReac Type Severity Reaction Status Date / Time No Known Allergies Allergy Unknown Verified 01/08/22 12:48 [facility] Past Medical History Medical History Anxiety Asthma Blood in stool Bronchitis CAP (community acquired pneumonia) Chronic GERD Chronic obstructive pulmonary disease Dementia Dementia with behavioral disturbance Depression Essential hypertension Gastroesophageal reflux disease Goiter History of concussion Hypothyroidism Pneumonia Transient ischemic attack Surgical History Surgical History History of spinal surgery (~1994) History of tubal ligation Family History Family History Mother Diabetes mellitus Congestive heart failure Father Emphysema lung Sibling Heart attack Social History Social History (Updated 01/08/22 @ 21:43 by Tamy Mauricio NP) Social History: The patient lives at [facility]. She is a former smoker and quit 1988. No alcohol or illicit substance use. Daughter Kori Padilla is her healthcare power of deputy attorney general. She is and retired. She has 2 daughters listed as her contact code status full code. Smoking status: Former smoker Tobacco type: cigarettes Smoking end date: 03/14/88 Alcohol intake: never Substance use: never Substance use type: does not use Gender identity (if verbalized by the patient): Female Sexual Orientation (if Verbalized by the Patient): Straight or Heterosexual Spiritual care concerns: No Agree to blood products: Yes Exam Narrative: GENERAL: Chronically ill-appearing, well-nourished, and in no acute distress. HEAD: Normocephalic, atraumatic. EYES: PERRL and EOMI. ENT: dry mucous membranes CHEST: Clear to auscultation. No respiratory distress. HEART: Regular rate and rhythm. Normal peripheral pulses. ABDOMEN: Soft, nontender, nondistended. EXTREMITIES: Normal range of motion. No edema. SKIN: Warm, dry, no rash. NEURO: Alert and oriented x1. PSYCH: Normal mood and affect. Course Course Emergency Course: Admit to hospitalist service. Will aggressively hydrate. Ceftriaxone for UTI. Vital Signs Vital signs: Vital Signs Temperature 99.6 F 01/08/22 10:46 Pulse Rate 99 01/08/22 10:46 Respiratory Rate 23 H 01/08/22 10:4
[2022-01-08 13:46] LABS: SARS-CoV-2 RNA PCR Negative
--- NOTE | 2022-01-08 15:46 | PC.NURSE ---
This patient, Mireya Zamora, was admitted to [facility] Surg Room 305-01. Patient/family oriented to hospital policies and general routines including ID bracelet, bed and alarms, visiting hours, pain management, procedures, bathroom and other care routines, personal items, smoking policy, room service/diet, and visiting hours. Information on how to activate the Rapid Response Team has been discussed. Patient/Family are encouraged to report perceived risks to care and to ask questions if they do not understand what they are told or what they should do.
[2022-01-08] MEDS: SODIUM CHLORIDE 0.9% IV 1,000 ML 125 ML IV CONT (17:35)
[2022-01-08 19:22] LABS: Anion Gap 8 mmol/L (8-16); Blood Urea Nitrogen 50 mg/dL (7-17); Calcium 9.3 mg/dL (8.4-10.2); Carbon Dioxide 26 mmol/L (22-30); Chloride 123 mmol/L (98-107); Estimated CRCL calculation 24 ml/min; Estimated Glomerular Filt Rate 39; Glucose 118 mg/dL (65-110); Sodium 157 mmol/L (137-145)
--- NOTE | 2022-01-08 20:43 | PM.IMHP ---
H&P: HPI History of Present Illness Date/Time: 01/08/22 20:43 Chief Complaint: Weakness Narrative: this is a 81-year-old female patient who comes from [facility]. The patient came in with altered mental status she does have a history of dementia but is more weak and confused than typical. Patient is not talking to me at this time. Her speech is incomprehensible. In the past she has become confused and weak due to UTI. Patient had an elevated temperature upon arrival and her O2 saturations were around 90% on room air. White count is 12.4. Sodium was initially 160 and that came down to 157. She was given 2 L of normal saline in the emergency room. Her chlorides 123. BUN 50 and creatinine was 1.3. Earlier today was 56 and 1.7. Patient was found have a UTI. She was started on Rocephin and IV fluids in the emergency room. The patient is being admitted to observation status on the date of service of 01/08/2022. Review of Systems Review of Systems: See HPI information [facility] All systems reviewed & are unremarkable except as noted in HPI and below Constitutional: Constitutional: Reports as per HPI and Reports no additional constitutional complaints Eyes: Eyes: Reports as per HPI and Reports no additional eye complaints ENT: Reports system reviewed and no additional complaints, except as documented and Reports Normal hearing present Cardiovascular: Cardiovascular: Reports no additional cardiovascular complaints Respiratory: Respiratory: Reports no additional respiratory complaints and Reports no additional respiratory complaints Gastrointestinal: Gastrointestinal: Reports as per HPI and Reports no additional gastrointestinal complaints Musculoskeletal: Musculoskeletal: Reports no additional musculoskeletal complaints Integumentary/Breasts: Skin/Breast: Reports system reviewed and no additional complaints, except as docu and Reports as per HPI Neurologic: Reports system reviewed and no additional complaints, except as documented, Reports as per HPI and Reports Normal hearing present Psychiatric: Psychiatric: Reports no additional psychiatric complaints and Reports as per HPI Endocrine: Endocrine: Reports no additional endocrine complaints Hematologic/Lymphatic: Hematologic/Lymphatic: Reports no additional hematologic/lymphatic complaints Allergic/Immunologic: Allergic/Immunologic: Reports no additional allergic/immunologic complaints PMFSH Past Medical History Medical History Anxiety Asthma Blood in stool Bronchitis CAP (community acquired pneumonia) Chronic GERD Chronic obstructive pulmonary disease Dementia Dementia with behavioral disturbance Depression Essential hypertension Gastroesophageal reflux disease Goiter History of concussion Hypothyroidism Pneumonia Transient ischemic attack Surgical History Surgical History History of spinal surgery (~1994) History of tubal ligation Family History Family History Mother Diabetes mellitus Congestive heart failure Father Emphysema lung Sibling Heart attack Social History Social History (Updated 01/08/22 @ 21:43 by Tamy Mauricio NP) Social History: The patient lives at [facility]. She is a former smoker and quit 1988. No alcohol or illicit substance use. Daughter Kori Padilla is her healthcare power of tax attorney. She is and retired. She has 2 daughters listed as her contact code status full code. Smoking status: Former smoker Tobacco type: cigarettes Smoking end date: 03/14/88 Alcohol intake: never Substance use: never Substance use type: does not use Gender identity (if verbalized by the patient): Female Sexual Orientation (if Verbalized by the Patient): Straight or Heterosexual S
[2022-01-08] MEDS: DEXTROSE 5%/0.45% SOD CHL 1,000 ML 100 ML IV CONT (23:23)
[2022-01-09] VITALS: BP 146/75; PULSE 98; RESP 12; TEMP 36.6; O2SAT 95
[2022-01-09 03:31] VITALS: BP 139/69; PULSE 88; RESP 14; TEMP 36.2; O2SAT 95
[2022-01-09 06:55] LABS: Basophils Percent Auto 0.4 % (0.2-1.2); Eosinophils Absolute Auto 0.1 K/mm3 (0-0.3); Eosinophils Percent Auto 1.3 % (0-4.4); Hematocrit 41.7 % (37.0-47.0); Hemoglobin 12.7 g/dL (12.0-15.0); Immature Granulocyte Absolute 0.07 K/mm3 (0.00-0.031); Immature Granulocyte Percent A 0.6 % (0-0.5); Lymphocytes Absolute Auto 1.98 K/mm3 (0.9-3.2); Lymphocytes Percent Auto 18.2 % (18.3-44.2); Mean Corpuscular HGB Conc 30.5 g/dl (32-36); Mean Corpuscular Hemoglobin 32.1 pg (26-34); Mean Corpuscular Volume 105.3 fl (80-100); Mean Platelet Volume 10.9 fl (7.4-10.4); Monocytes Percent Auto 8.7 % (2.6-8.5); Neutrophils Absolute Auto 7.7 K/mm3 (1.3-6.7); Neutrophils Percent Auto 70.8 % (45.5-73.1); Platelet Count Result 218 k/mm3 (150-375); Red Blood Count 3.96 M/mm3 (4.2-5.4); Red Cell Distribution Width 12.3 % (11.5-14.5); White Blood Count 10.9 K/mm3 (4.5-10.0)
[2022-01-09 07:06] LABS: Magnesium 2.2 mg/dL (1.6-2.3); Phosphorus 2.8 mg/dL (2.5-4.5)
[2022-01-09 07:11] LABS: Lactic Acid Reflex 1.2 mmol/L (0.7-2.0)
[2022-01-09 08:00] VITALS: PULSE 88; RESP 14; O2SAT 95
[2022-01-09 08:14] LABS: Anion Gap 9 mmol/L (8-16); Blood Urea Nitrogen 42 mg/dL (7-17); Calcium 9.4 mg/dL (8.4-10.2); Carbon Dioxide 25 mmol/L (22-30); Chloride 123 mmol/L (98-107); Estimated CRCL calculation 31 ml/min; Estimated Glomerular Filt Rate 53; Glucose 135 mg/dL (65-110); Potassium 4.3 mmol/L (3.4-5.0); Sodium 157 mmol/L (137-145)
[2022-01-09 09:20] LABS: Folic Acid 12.5 ng/mL (2.76->20)
[2022-01-09] MEDS: DEXTROSE 5%/0.45% SOD CHL 1,000 ML 100 ML IV CONT (09:48)
[2022-01-09 12:08] LABS: Sodium 154 mmol/L (137-145)
--- NOTE | 2022-01-09 12:20 | PM.IMPN ---
Progress Note: A&P Assessment and Plan (1) AMS (altered mental status): Code(s): R41.82 - Altered mental status, unspecified Status: Acute Assessment and Plan: Chest x-ray was clear. UA noted. TSH normal. B12 low end of normal. Altered mental status could be related to UTI. Consider also from her acute kidney injury and/or hyponatremia. Consider also related to recent changes in medications. Will check MMA. Continue IV antibiotics. Check CT of the head. Will adjust her home medications. She yells out with even slight movement. Symptoms seem to be worse with the left hip but normally patients dont pull up their leg. Consider constipation. Will check KUB, pelvic/hip xray. . (2) Hypernatremia: Code(s): E87.0 - Hyperosmolality and hypernatremia Status: Acute Assessment and Plan: Patient's sodium was initially 160 and after 2 L of normal saline and came down to 157. Related to poor oral intake and dehydration. Fluids changed to D5 half normal saline. Na continues to trend downward. Use D5W if this does not correct. (3) VERA (acute kidney injury): Code(s): N17.9 - Acute kidney failure, unspecified Status: Acute Assessment and Plan: Patient with a normal baseline creatinine. Creatinine 1.7 on admission. With appropriate rehydration, creatinine has normalized. It was suspected that she had elevated renal function because of dehydration. Continue to follow. (4) Acute UTI: Code(s): N39.0 - Urinary tract infection, site not specified Status: Acute Assessment and Plan: UA noted. UCx and BCx ordered. Continue with Rocephin. Follow up on results (5) Essential hypertension: Code(s): I10 - Essential (primary) hypertension Status: Acute Assessment and Plan: Patient's blood pressure was reviewed on 01/09 Blood pressure remains well controlled. Will continue to follow. Lisinopril remains on hold. (6) Dehydration: Code(s): E86.0 - Dehydration Status: Acute Assessment and Plan: As above (7) COPD (chronic obstructive pulmonary disease): Qualifiers: COPD type: unspecified COPD Qualified Code(s): J44.9 - Chronic obstructive pulmonary disease, unspecified Code(s): J44.9 - Chronic obstructive pulmonary disease, unspecified Status: Chronic Assessment and Plan: Patient with COPD/asthma. Albuterol available as needed. (8) Dementia: Code(s): F03.90 - Unspecified dementia, unspecified severity, without behavioral disturbance, psychotic disturbance, mood disturbance, and anxiety Status: Acute Assessment and Plan: As above. Patient is on extensive medications for dementia due to behavioral disorder. Remeron added recently. She has been somnolent with past few days and her medications were decreased. Will hold the Celexa, trazodone and Zyprexa. We will decrease the Lamictal. Will monitor her mental status looking for improvement. Adjust medications to control agitation. Overall, we may need to consider hospice if she is not eating. G-tube feeding would not be appropriate in this clinical setting. (9) Hypothyroidism: Qualifiers: Hypothyroidism type: unspecified Qualified Code(s): E03.9 - Hypothyroidism, unspecified Code(s): E03.9 - Hypothyroidism, unspecified Status: Chronic Assessment and Plan: TSH normal. Continue levothyroxine. (10) Depression: Qualifiers: Depression Type: other depression Qualified Code(s): F32.89 - Other specified depressive episodes Code(s): F32.9 - Major depressive disorder, single episode, unspecified Status: Chronic Assessment and Plan: Patient with depression and anxiety. Celexa has been held a few days ago. Will stop that here. Monitor her mood Subjective Date/time seen: 01/09/22 12:20 Interval history: 81yo female with dementia with
--- NOTE | 2022-01-09 14:37 | PC.NURSE ---
Provider notified of hip/pelvis and abd xray results.
[2022-01-09 16:00] VITALS: BP 145/84; PULSE 100; RESP 14; TEMP 36.2; O2SAT 94
[2022-01-09 20:00] VITALS: BP 157/87; PULSE 96; RESP 16; TEMP 37.1; O2SAT 94
[2022-01-10] VITALS: BP 159/90; PULSE 98; RESP 24; TEMP 36.9; O2SAT 91
[2022-01-10] MEDS: DEXTROSE 5%/0.45% SOD CHL 1,000 ML 100 ML IV CONT (00:45)
[2022-01-10] MEDS: hydrALAZINE HCL 20 MG/ML VIAL 10 MG IV PUSH (00:45)
[2022-01-10 04:00] VITALS: BP 122/65; PULSE 84; RESP 18; TEMP 36.8; O2SAT 93
--- NOTE | 2022-01-10 05:57 | PC.NURSE ---
Pt. is not taking any P.O. medications and refusing water,food and oral care. Pt. is on IV fluids at this time.
[2022-01-10 06:37] LABS: Hematocrit 42.2 % (37.0-47.0); Hemoglobin 13.1 g/dL (12.0-15.0); Mean Corpuscular Volume 102.9 fl (80-100); Platelet Count Result 226 k/mm3 (150-375); Red Cell Distribution Width 11.9 % (11.5-14.5); White Blood Count 9.9 K/mm3 (4.5-10.0)
[2022-01-10 06:46] LABS: Anion Gap 9 mmol/L (8-16); Blood Urea Nitrogen 23 mg/dL (7-17); Calcium 9.9 mg/dL (8.4-10.2); Carbon Dioxide 29 mmol/L (22-30); Chloride 116 mmol/L (98-107); Estimated CRCL calculation 38 ml/min; Estimated Glomerular Filt Rate > 60; Glucose 111 mg/dL (65-110); Potassium 4.2 mmol/L (3.4-5.0); Sodium 154 mmol/L (137-145)
[2022-01-10 08:00] VITALS: BP 126/60; PULSE 86; RESP 18; TEMP 36.6; O2SAT 94
[2022-01-10] MEDS: CYANOCOBALAMIN INJ 1,000 MCG/ML VIAL 1000 MCG IM (09:31)
[2022-01-10] MEDS: DEXTROSE 5% 1,000 ML 1,000 ML 70 ML IV CONT (09:31)
[2022-01-10] MEDS: LIDOCAINE 5% PATCH 1 PATCH TRANSDERM (09:32)
[2022-01-10] MEDS: polyethylene glycoL 3350 17 GM POWD.PACK PO (09:36)
--- NOTE | 2022-01-10 11:17 | PM.IMPN ---
Progress Note: A&P Assessment and Plan (1) AMS (altered mental status): Code(s): R41.82 - Altered mental status, unspecified Status: Acute Assessment and Plan: Chest x-ray was clear. UCx noted. TSH normal. B12 low end of normal. CT brain showing no acute findings. KUB does show fecal impaction. Altered mental status could be related to UTI and/or fecal impaction. Consider also from her acute kidney injury and/or hyponatremia. Consider also related to recent changes in medications. Continue to treat fecal impaction. Continue Rocephin for UTI. Medications were adjusted but now patient refusing her medications. Change IV fluids to D5W to improve her hypernatremia. Replace B12. (2) Hypernatremia: Code(s): E87.0 - Hyperosmolality and hypernatremia Status: Acute Assessment and Plan: Patient's sodium was initially 160 and after IV hydration, Na down to 154. Related to poor oral intake and dehydration. Fluids changed to D5W today. Trend sodium values. (3) VERA (acute kidney injury): Code(s): N17.9 - Acute kidney failure, unspecified Status: Acute Assessment and Plan: Patient with a normal baseline creatinine. Creatinine 1.7 on admission. With appropriate rehydration, creatinine has normalized. It was suspected that she had elevated renal function because of dehydration. Continue to follow. (4) Acute UTI: Code(s): N39.0 - Urinary tract infection, site not specified Status: Acute Assessment and Plan: UA noted. UCx growing aerococcus. BCx NGTD. Continue with Rocephin. (5) Essential hypertension: Code(s): I10 - Essential (primary) hypertension Status: Acute Assessment and Plan: Patient's blood pressure was reviewed on 01/10 Blood pressure higher overnight but better this morning. Will continue to follow. Lisinopril remains on hold. (6) Dehydration: Code(s): E86.0 - Dehydration Status: Acute Assessment and Plan: As above (7) COPD (chronic obstructive pulmonary disease): Qualifiers: COPD type: unspecified COPD Qualified Code(s): J44.9 - Chronic obstructive pulmonary disease, unspecified Code(s): J44.9 - Chronic obstructive pulmonary disease, unspecified Status: Chronic Assessment and Plan: Patient with COPD/asthma. Albuterol available as needed. (8) Dementia: Code(s): F03.90 - Unspecified dementia, unspecified severity, without behavioral disturbance, psychotic disturbance, mood disturbance, and anxiety Status: Acute Assessment and Plan: As above. Patient is on extensive medications for dementia and behavioral disorder. Remeron added recently. She was somnolent with past few days and her medications were decreased prior to admission. Here we continued to hold the Celexa, trazodone and Zyprexa. We also decreased the Lamictal per prior orders from facility. No real change in her mental status. She is refusing mediations now. Overall, we may need to consider hospice if she is not eating. G-tube feeding would not be appropriate in this clinical setting. (9) Hypothyroidism: Qualifiers: Hypothyroidism type: unspecified Qualified Code(s): E03.9 - Hypothyroidism, unspecified Code(s): E03.9 - Hypothyroidism, unspecified Status: Chronic Assessment and Plan: TSH normal. Continue levothyroxine. (10) Depression: Qualifiers: Depression Type: other depression Qualified Code(s): F32.89 - Other specified depressive episodes Code(s): F32.9 - Major depressive disorder, single episode, unspecified Status: Chronic Assessment and Plan: Patient with depression and anxiety. Celexa was held a few days ago. Will continue to hold this here. Monitor her mood Plan Irregular rhythm - probably related to PVCs but will check EKG. Subjective Date/time seen: 01/10/22 11:17
--- NOTE | 2022-01-10 11:53 | ECG_ITS ---
Measurements Intervals [place] Rate: 98 P: 78 MI: 130 QRS: 70 QRSD: 81 T: 99 QT: 266 QTc: 341 Interpretive Statements SINUS RHYTHM WITH OCCASIONAL SUPRAVENTRICULAR PREMATURE COMPLEXES NONSPECIFIC ST & T-WAVE ABNORMALITY COMPARED TO ECG 01/08/2022 12:13:54 HEART RATE IS REDUCED NO SIGNIFICANT CHANGE CURRENT ECG HAS SIGNIFICANT MOTION ARTIFACT Electronically Signed On 01-11-2022 12:21:46 CDT by Sacha Nelson M.D.
[2022-01-10 12:22] LABS: Sodium 150 mmol/L (137-145)
[2022-01-10 14:40] VITALS: BP 140/43; PULSE 94; RESP 18; TEMP 36.2; O2SAT 95
[2022-01-10 20:00] VITALS: BP 143/78; PULSE 94; RESP 18; TEMP 37.1; O2SAT 96
[2022-01-11] VITALS: BP 142/76; PULSE 83; RESP 20; TEMP 36.6; O2SAT 97
[2022-01-11 04:00] VITALS: BP 125/74; PULSE 100; RESP 20; TEMP 36.6; O2SAT 96
[2022-01-11] MEDS: DEXTROSE 5% 1,000 ML 1,000 ML 70 ML IV CONT (04:39)
[2022-01-11 07:46] LABS: Albumin Level 3.3 g/dL (3.5-5.1); Anion Gap 6 mmol/L (8-16); Blood Urea Nitrogen 19 mg/dL (7-17); Calcium 9.1 mg/dL (8.4-10.2); Carbon Dioxide 28 mmol/L (22-30); Chloride 109 mmol/L (98-107); Estimated CRCL calculation 43 ml/min; Estimated Glomerular Filt Rate > 60; Glucose 129 mg/dL (65-110); Potassium 3.6 mmol/L (3.4-5.0); Sodium 143 mmol/L (137-145)
[2022-01-11] MEDS: LIDOCAINE 5% PATCH 1 PATCH TRANSDERM (09:42)
[2022-01-11] MEDS: ENOXAPARIN 40 MG/0.4 ML SYRINGE SUB-Q (09:42)
--- NOTE | 2022-01-11 10:34 | PM.IMPN ---
Progress Note: A&P Assessment and Plan (1) AMS (altered mental status): Code(s): R41.82 - Altered mental status, unspecified Status: Acute Assessment and Plan: Chest x-ray was clear. UCx noted. TSH normal. B12 low end of normal. CT brain showing no acute findings. KUB does show fecal impaction. Altered mental status could be related to UTI and/or fecal impaction. Consider also from her acute kidney injury and/or hyponatremia. Consider also related to recent changes in medications. Continue to treat fecal impaction and UTI. Home medications were also adjusted. Changed IV fluids to D5W and hypernatremia resolved. B12 was replaced. Still on O2 so will try to wean off. (2) Hypernatremia: Code(s): E87.0 - Hyperosmolality and hypernatremia Status: Acute Assessment and Plan: Patient's sodium was initially 160 and after IV hydration, Na down to 154. Related to poor oral intake and dehydration. Fluids changed to D5W and Na normal now. Trend sodium values. (3) VERA (acute kidney injury): Code(s): N17.9 - Acute kidney failure, unspecified Status: Acute Assessment and Plan: Patient with a normal baseline creatinine. BUN 56 and Creatinine 1.7 on admission. With appropriate rehydration, BUN and creatinine has essentially normalized. It was suspected that she had elevated renal function because of dehydration. Continue to follow. (4) Acute UTI: Code(s): N39.0 - Urinary tract infection, site not specified Status: Acute Assessment and Plan: UA noted. UCx growing aerococcus. BCx NGTD. Continue with Rocephin. (5) Essential hypertension: Code(s): I10 - Essential (primary) hypertension Status: Acute Assessment and Plan: Patient's blood pressure was reviewed on 01/11 Blood pressure remains well controlled. Will continue to follow. Lisinopril remains on hold. (6) Dementia: Code(s): F03.90 - Unspecified dementia, unspecified severity, without behavioral disturbance, psychotic disturbance, mood disturbance, and anxiety Status: Acute Assessment and Plan: Patient is on extensive medications for dementia and behavioral disorder. Remeron added recently. She was somnolent prior to admission and her medications were decreased. Here we continued to hold the Celexa, trazodone and Zyprexa. We also decreased the Lamictal per prior orders from facility. No real change in her mental status. Overall, we may need to consider hospice if she is not eating. G-tube feeding would not be appropriate in this clinical setting. (7) Dehydration: Code(s): E86.0 - Dehydration Status: Acute Assessment and Plan: As above (8) COPD (chronic obstructive pulmonary disease): Qualifiers: COPD type: unspecified COPD Qualified Code(s): J44.9 - Chronic obstructive pulmonary disease, unspecified Code(s): J44.9 - Chronic obstructive pulmonary disease, unspecified Status: Chronic Assessment and Plan: Patient with COPD/asthma. Albuterol available as needed. (9) Hypothyroidism: Qualifiers: Hypothyroidism type: unspecified Qualified Code(s): E03.9 - Hypothyroidism, unspecified Code(s): E03.9 - Hypothyroidism, unspecified Status: Chronic Assessment and Plan: TSH normal. Continue levothyroxine. (10) Depression: Qualifiers: Depression Type: other depression Qualified Code(s): F32.89 - Other specified depressive episodes Code(s): F32.9 - Major depressive disorder, single episode, unspecified Status: Chronic Assessment and Plan: Patient with depression and anxiety. Celexa was held prior to admission. Will continue to hold this here. Monitor her mood Plan Irregular rhythm - related to PVC Subjective Date/time seen: 01/11/22 10:34 Interval history: 81yo female with dementia with behavioral issues he
[2022-01-11 14:21] VITALS: O2SAT 96
[2022-01-11 15:57] VITALS: BP 120/54; PULSE 104; RESP 20; TEMP 36.9; O2SAT 98
[2022-01-11 20:00] VITALS: BP 112/70; PULSE 99; RESP 18; TEMP 36.8; O2SAT 96
[2022-01-11 21:21] VITALS: O2SAT 95
[2022-01-12] VITALS: BP 128/65; PULSE 84; RESP 20; TEMP 36.9; O2SAT 98
[2022-01-12] MEDS: DEXTROSE 5% 1,000 ML 1,000 ML 70 ML IV CONT (01:00)
[2022-01-12 04:00] VITALS: BP 115/57; PULSE 78; RESP 18; TEMP 36.6; O2SAT 99
[2022-01-12 07:15] LABS: Albumin Level 3.2 g/dL (3.5-5.1); Anion Gap 9 mmol/L (8-16); Blood Urea Nitrogen 15 mg/dL (7-17); Carbon Dioxide 28 mmol/L (22-30); Chloride 102 mmol/L (98-107); Estimated CRCL calculation 43 ml/min; Estimated Glomerular Filt Rate > 60; Glucose 130 mg/dL (65-110); Phosphorus 3.2 mg/dL (2.5-4.5); Potassium 3.5 mmol/L (3.4-5.0); Sodium 139 mmol/L (137-145)
[2022-01-12] MEDS: ENOXAPARIN 40 MG/0.4 ML SYRINGE SUB-Q (08:15)
[2022-01-12] MEDS: LIDOCAINE 5% PATCH 1 PATCH TRANSDERM (08:15)
[2022-01-12 08:40] VITALS: O2SAT 99
--- NOTE | 2022-01-12 11:45 | PM.IMPN ---
Progress Note: A&P Assessment and Plan (1) AMS (altered mental status): Code(s): R41.82 - Altered mental status, unspecified Status: Acute Assessment and Plan: Chest x-ray was clear. UCx noted. TSH normal. B12 low end of normal. CT brain showing no acute findings. KUB does show fecal impaction. Altered mental status could be related to UTI and/or fecal impaction and/or VERA and/or hyponatremia. Consider also related to recent changes in medications. Continue to treat fecal impaction and UTI. Home medications were adjusted but not able to take meds orally. Plan for hospice tomorrow. (2) Hypernatremia: Code(s): E87.0 - Hyperosmolality and hypernatremia Status: Acute Assessment and Plan: Patient's sodium was initially 160 and after IV hydration, Na normal now. Adjust IV fluids (3) VERA (acute kidney injury): Code(s): N17.9 - Acute kidney failure, unspecified Status: Acute Assessment and Plan: Patient with a normal baseline creatinine. BUN 56 and Creatinine 1.7 on admission. With appropriate rehydration, BUN and creatinine have normalized. It was suspected that she had elevated renal function because of dehydration. (4) Acute UTI: Code(s): N39.0 - Urinary tract infection, site not specified Status: Acute Assessment and Plan: UA noted. UCx growing aerococcus. BCx NGTD. Continue with Rocephin. (5) Essential hypertension: Code(s): I10 - Essential (primary) hypertension Status: Acute Assessment and Plan: Patient's blood pressure was reviewed on 01/12 Blood pressure noted Will continue to follow. Lisinopril remains on hold. (6) Dementia: Code(s): F03.90 - Unspecified dementia, unspecified severity, without behavioral disturbance, psychotic disturbance, mood disturbance, and anxiety Status: Acute Assessment and Plan: Patient is on extensive medications for dementia and behavioral disorder. Remeron added recently. She was somnolent prior to admission and her medications were decreased. Here we continued to hold the Celexa, trazodone and Zyprexa. We also decreased the Lamictal per prior orders from facility. No real change in her mental status and she is essentially off all her medications. No plans for feeding tube; she is being discharged tomorrow on hospice (7) Dehydration: Code(s): E86.0 - Dehydration Status: Acute Assessment and Plan: As above (8) COPD (chronic obstructive pulmonary disease): Qualifiers: COPD type: unspecified COPD Qualified Code(s): J44.9 - Chronic obstructive pulmonary disease, unspecified Code(s): J44.9 - Chronic obstructive pulmonary disease, unspecified Status: Chronic Assessment and Plan: Patient with COPD/asthma. Albuterol available as needed. (9) Hypothyroidism: Qualifiers: Hypothyroidism type: unspecified Qualified Code(s): E03.9 - Hypothyroidism, unspecified Code(s): E03.9 - Hypothyroidism, unspecified Status: Chronic Assessment and Plan: TSH normal. (10) Depression: Qualifiers: Depression Type: other depression Qualified Code(s): F32.89 - Other specified depressive episodes Code(s): F32.9 - Major depressive disorder, single episode, unspecified Status: Chronic Assessment and Plan: Patient with depression and anxiety. Meds on hold Subjective Date/time seen: 01/12/22 11:45 Interval history: 81yo female with dementia with behavioral issues here for altered mental status. Patient arouses but remains nonverbal. No issues overnight. poke with family extensively last night about possible etiologies and prognosis. All questions answered. Review of Systems Review of Systems: ROS unobtainable: Yes unobtainable due to mental status Exam Narrative: AF 97.8 115/57 78 18 99% 2L Gen - NARD Chest - bibasilar insp
[2022-01-12] MEDS: KCL 20 MEQ/D5/0.9% SOD CHL 1,000 ML 70 ML IV CONT (12:28)
[2022-01-12 14:00] VITALS: BP 159/90; PULSE 86; RESP 15; TEMP 36.9; O2SAT 93
--- NOTE | 2022-01-12 14:51 | PC.NURSE ---
Spoke with Irina with [facility]. 0830 hot die picker time scheduled for patient on 01/13/2022. CC notified.
[2022-01-12 20:00] VITALS: BP 116/58; PULSE 91; RESP 18; TEMP 36.6; O2SAT 99
[2022-01-13] VITALS: BP 100/58; PULSE 83; RESP 20; TEMP 36.6; O2SAT 99
[2022-01-13] MEDS: KCL 20 MEQ/D5/0.9% SOD CHL 1,000 ML 70 ML IV CONT (01:50)
[2022-01-13 04:00] VITALS: BP 154/65; PULSE 95; RESP 28; TEMP 36.8; O2SAT 95
[2022-01-13 06:53] LABS: Albumin Level 3.2 g/dL (3.5-5.1); Anion Gap 10 mmol/L (8-16); Blood Urea Nitrogen 13 mg/dL (7-17); Calcium 9.4 mg/dL (8.4-10.2); Carbon Dioxide 30 mmol/L (22-30); Chloride 106 mmol/L (98-107); Estimated CRCL calculation 38 ml/min; Estimated Glomerular Filt Rate > 60; Glucose 130 mg/dL (65-110); Phosphorus 2.6 mg/dL (2.5-4.5); Potassium 4.8 mmol/L (3.4-5.0); Sodium 146 mmol/L (137-145)
[2022-01-13 08:00] VITALS: O2SAT 92
--- NOTE | 2022-01-13 08:01 | PM.DS ---
DS: Admitting Diagnosis Discharge Date 01/13/22 Admitting Diagnosis (1) Acute UTI: ?Code(s): N39.0 - Urinary tract infection, site not specified ?Status:?Acute (2) AMS (altered mental status): ?Code(s): R41.82 - Altered mental status, unspecified ?Status:?Acute (3) Essential hypertension: ?Code(s): I10 - Essential (primary) hypertension ?Status:?Acute (4) Dehydration: ?Code(s): E86.0 - Dehydration ?Status:?Acute (5) COPD (chronic obstructive pulmonary disease): ?Qualifiers: ?COPD type:?unspecified COPD? Qualified Code(s):?J44.9 - Chronic obstructive pulmonary disease, unspecified ?Code(s): J44.9 - Chronic obstructive pulmonary disease, unspecified ?Status:?Chronic (6) Dementia: ?Code(s): F03.90 - Unspecified dementia, unspecified severity, without behavioral disturbance, psychotic disturbance, mood disturbance, and anxiety ?Status:?Acute (7) Hypothyroidism: ?Qualifiers: ?Hypothyroidism type:?unspecified? Qualified Code(s):?E03.9 - Hypothyroidism, unspecified ?Code(s): E03.9 - Hypothyroidism, unspecified ?Status:?Chronic (8) Depression: ?Qualifiers: ?Depression Type:?other depression? Qualified Code(s):?F32.89 - Other specified depressive episodes ?Code(s): F32.9 - Major depressive disorder, single episode, unspecified ?Status:?Chronic (9) Asthma: ?Code(s): J45.909 - Unspecified asthma, uncomplicated ?Status:?Chronic (10) Anxiety: ?Code(s): F41.9 - Anxiety disorder, unspecified ?Status:?Chronic (11) Hypernatremia: ?Code(s): E87.0 - Hyperosmolality and hypernatremia ?Status:?Acute DS: Discharge Diagnosis Discharge Diagnosis (1) Hypernatremia: Code(s): E87.0 - Hyperosmolality and hypernatremia Status: Acute (2) AMS (altered mental status): Code(s): R41.82 - Altered mental status, unspecified Status: Acute (3) VERA (acute kidney injury): Code(s): N17.9 - Acute kidney failure, unspecified Status: Acute (4) Acute UTI: Code(s): N39.0 - Urinary tract infection, site not specified Status: Acute (5) Acute hypernatremia: Code(s): E87.0 - Hyperosmolality and hypernatremia Status: Acute (6) Chronic GERD: Code(s): K21.9 - Gastro-esophageal reflux disease without esophagitis Status: Acute (7) Gastritis: Code(s): K29.70 - Gastritis, unspecified, without bleeding Status: Acute (8) Anemia: Qualifiers: Anemia type: unspecified type Qualified Code(s): D64.9 - Anemia, unspecified Code(s): D64.9 - Anemia, unspecified Status: Acute (9) Essential hypertension: Code(s): I10 - Essential (primary) hypertension Status: Acute (10) Acute kidney injury: Code(s): N17.9 - Acute kidney failure, unspecified Status: Acute (11) COPD (chronic obstructive pulmonary disease): Qualifiers: COPD type: unspecified COPD Qualified Code(s): J44.9 - Chronic obstructive pulmonary disease, unspecified Code(s): J44.9 - Chronic obstructive pulmonary disease, unspecified Status: Chronic (12) Behavior disturbance: Code(s): F91.9 - Conduct disorder, unspecified Status: Acute (13) Psychosis: Qualifiers: Psychosis type: unspecified psychosis type Qualified Code(s): F29 - Unspecified psychosis not due to a substance or known physiological condition Code(s): F29 - Unspecified psychosis not due to a substance or known physiological condition Status: Acute (14) Dementia: Code(s): F03.90 - Unspecified dementia, unspecified severity, without behavioral disturbance, psychotic disturbance, mood disturbance, and anxiety Status: Acute (15) Anorexia: Code(s): R63.0 - Anorexia Status: Acute DS: Summary Hospital Course Reason for hospitalization: weakness Hospital Course: ?this is a 81
[2022-01-13] MEDS: LIDOCAINE 5% PATCH 1 PATCH TRANSDERM (08:03)
[2022-01-13] MEDS: ENOXAPARIN 40 MG/0.4 ML SYRINGE SUB-Q (08:05)
[2022-01-13 08:17] LABS: EDCOVIDSCREEN Negative (Negative)
[2022-01-13 13:06] LABS: Methylmalonic Acid 231 nmol/L (87-318)
== END 2022-01-13 09:49 | disposition hospice, inpatient (51) | DRG 690 ==
LOC: ANHED 12:00 → ANH3MEDSUR 15:04
PROVIDERS: Emergency Medicine; Internal Medicine; Nurse Practitioner; Admitting Provider Family Medicine; Emergency Provider Emergency Medicine; PCP Family Medicine; Visit Provider Hospitalist
DX: N39.0 Urinary tract infection, site not specified (principal); N17.9 Acute kidney failure, unspecified; E87.0 Hyperosmolality and hypernatremia; F03.918 Unspecified dementia, unspecified severity, with other behavioral disturbance; Z68.1 Body mass index [BMI] 19.9 or less, adult; E86.0 Dehydration; I10 Essential (primary) hypertension; J44.9 Chronic obstructive pulmonary disease, unspecified; E04.9 Nontoxic goiter, unspecified; K56.41 Fecal impaction; K21.9 Gastro-esophageal reflux disease without esophagitis; R63.0 Anorexia; F41.9 Anxiety disorder, unspecified; F32.A Depression, unspecified; Z20.822 Contact with and (suspected) exposure to COVID-19; Z86.73 Personal history of transient ischemic attack (TIA), and cerebral infarction without residual deficits; Z87.891 Personal history of nicotine dependence
CPT/HCPCS: 36415; 70450; 71045; 73521; 73700; 74019; 74176; 80048; 80053; 80069; 81001; 82607; 82728; 82746; 83605; 83735; 83921; 84100; 84295; 84443; 85025; 85027; 87040; 87077; 87086; 87088; 87426; 93005; 96361; 96365; 96366; 99285; A9270; C9803; G0378; J0360; J0696; J1650; J3420; J3480; J7030; J7070; U0003; U0005